=== PATIENT | female | born 1970 | race African-American/Black ===

== ENCOUNTER 2025-01-22 15:17 | Emergency (ER) | payer OTHER, SELFPAY ==
--- NOTE | ~2025-01-22 | CT_ITS ---
EXAMINATION: CT cervical spine wo con DATE: 01/22/2025 15:50 INDICATION: fall TECHNIQUE: Computed tomography (CT) of the cervical spine was performed without intravenous contrast. Automated exposure control and iterative reconstruction technique were employed. The dose-length pro duct was 148.51 mGy-cm. COMPARISON: None. FINDINGS: Motion artifact in the upper cervical spine. Vertebral Body Alignment: Intact. Cervical straightening which can occur with positioning or muscle s pasm. Craniocervical and atlantoaxial alignment: No significant degenerative change. Alignment intact. Osseous structures/fracture: No evidence of a lytic or blastic process in the visualized spine. No e vidence of acute fracture. Cervical soft tissues: The paraspinal soft tissues planes are maintained. Prominence of the preverteb ral soft tissues, largely comprised by prominent bilateral internal jugular veins and carotid arterie s Mild apical septal thickening. Moderate left pleural fluid collection. Degenerative changes: Degenerative changes, without severe neural foraminal or central canal narrowin g. IMPRESSION: Mild motion artifact. X-ray, no acute fracture or traumatic malalignment in the cervical spine. Mild interstitial edema. Moderate left pleural effusion. Reviewed, dictated and finalized at location K.
--- NOTE | ~2025-01-22 | XR_ITS ---
EXAM: XR pelvis 1-2V DATE: 01/22/2025 16:05 HISTORY: FALL . COMPARISON: None available. FINDINGS: Normal mineralization. No fracture or dislocation. Lumbar degenerative disc disease. Pelvi c phleboliths. Calcification over the left greater trochanter, likely calcific tendinitis. Mild scatt ered pelvic enthesopathy. Mild degenerative changes in the hips. IMPRESSION: No acute osseous finding in the pelvis. Reviewed, dictated and finalized at location K.
--- NOTE | ~2025-01-22 | CT_ITS ---
EXAMINATION: CT brain wo con DATE: 01/22/2025 15:50 INDICATION: fall . TECHNIQUE: Computed tomography (CT) of the head was performed without intravenous contrast. The mA wa s adjusted according to patient size. Iterative reconstruction technique was employed. The dose-lengt h product was 605.33 mGy-cm. COMPARISON: None. FINDINGS: No acute intracranial hemorrhage or extra-axial fluid collection. No hydrocephalus, mass, or herniation. No acute ischemic infarct. Unremarkable dural venous sinus attenuation. No acute osseous abnormality. Bilateral maxillary mucosal thickening, the remaining aerated spaces are clear. Left basal ganglia calcification. Mild atrophy and chronic white matter change. Atherosclerotic intra cranial calcification. Bilateral lens replacements. IMPRESSION: No acute intracranial process. Reviewed, dictated and finalized at location K.
[2025-01-22 15:15] VITALS: BP 160/139; PULSE 117; RESP 20; TEMP 36.8; O2SAT 98
--- NOTE | 2025-01-22 15:29 | ED.FALL ---
HPI - Fall General Chief Complaint: Fall Stated Complaint: FALL Source: EMS Mode of arrival: EMS Limitations: clinical condition History of Present Illness HPI Narrative: 54 YEARS OLD FEMALE CAME FROM SENIOR [facility]IVING BY AMBULANCE AFTER A FALL PATIENT WAS WALKING TO THE RESTROOM, SLIPPED AND FELL PATIENT HIT HER HEAD ON THE FLOOR, HISTORY OF FREQUENT FALLS, PATIENT DENIES ANY PAIN, PATIENT IS AWAKE, ALERT ORIENTED TO HER NAME AND AGE ONLY AND SITUATION Review of Systems Review of Systems: All systems reviewed & are unremarkable except as noted in HPI and below Exam Narrative: GENERAL APPEARANCE: WELL-DEVELOPED, WELL-NOURISHED SKIN: NORMAL COLOR HEAD: NORMOCEPHALIC, NONTRAUMATIC LEFT OCCIPITAL HEMATOMA EYES: CLEAR CONJUNCTIVA ENT: OROPHARYNX NORMAL, EARS NORMAL, NOSE NORMAL NECK: C-COLLAR ON CHEST AND RESPIRATORY: AIRWAY PATENT, NO RESPIRATORY DISTRESS, NO ACCESSORY MUSCLE USE HEART: REGULAR RATE/RHYTHM ABDOMEN: SOFT, NONTENDER, NO ORGANOMEGALY, QUIET BOWEL SOUNDS VASCULAR: NORMAL PERIPHERAL PULSES, NORMAL CAPILLARY REFILL. 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, NO GROSS MOTOR DEFICIT Course Vital Signs Vital signs: Vital Signs Temperature 36.8 C 01/22/25 15:15 Pulse Rate 117 H 01/22/25 15:15 Respiratory Rate 20 01/22/25 15:15 Blood Pressure 160/139 H 01/22/25 15:15 Pulse Oximetry 98 01/22/25 15:15 Oxygen Delivery Room Air 01/22/25 15:15 Temperature 36.8 C 01/22/25 15:15 Pulse Rate 112 H 01/22/25 16:20 Respiratory Rate 15 01/22/25 16:20 Blood Pressure 171/109 H 01/22/25 16:20 Pulse Oximetry 99 01/22/25 16:20 Oxygen Delivery Room Air 01/22/25 15:15 MDM - Fall MDM Narrative Medical decision making narrative: PATIENT CAME AFTER GROUND LEVEL FALL VITAL SIGNS SHOWING BLOOD PRESSURE 160/139, HEART RATE 117 OTHERWISE WITHIN NORMAL LIMIT PHYSICAL EXAMINATION SHOWING A PATIENT WITH A C-COLLAR ON, LEFT OCCIPITAL HEMATOMA, SLIGHT LIMITED RANGE OF MOTION OF THE HIPS. WORKUP INCLUDES CT HEAD AND CT CERVICAL SPINE WITHOUT CONTRAST SHOWED NO SIGNIFICANT ABNORMALITIES X-RAY OF THE PELVIS SHOWED NO ACUTE OSSEOUS ABNORMALITY DIAGNOSIS FALL, CONTUSIONS DISCHARGE BACK TO SENIOR LIVING THE PT WAS DISCHARGED TO HOME.THE PT,S CONDITION UPON DISCHARGE WAS FAIR,EDUCATION WAS PROVIDED TO THE PT IN REFERENCE TO THE FINAL IMPRESSION,DISCHARGE STUDY RESULTS,TREATMENT,PROGNOSIS AND NEED FOR FOLLOW UP . Differential Diagnosis Differential diagnosis: Likely other (INTRACRANIAL HEMORRHAGE, NECK FRACTURE, PELVIC FRACTURE) Imaging Data Radiologist's impression: Impressions Head CT 01/22/25 15:53 IMPRESSION: No acute intracranial process. Cervical Spine CT 01/22/25 16:28 IMPRESSION: Mild motion artifact. X-ray, no acute fracture or traumatic malalignment in the cervical spine. Mild interstitial edema. Moderate left pleural effusion. Critical Care Time Critical Care Time Critical Care Time: No Discharge Plan Discharge Clinical Impression: Fall, Contusion Patient Disposition: NH [facility]sp/Asst Living Condition: Stable Instructions: Fall Prevention for Older Adults (ED), Contusion in Adults (ED) Additional Instructions: RETURN IF SYMPTOMS ARE WORSENING , CALL YOUR FAMILY PHYSICIAN FOR APPOINTMENT, TAKE TYLENOL NEEDED FOR ACHES AND PAIN, CONTINUE HOME MEDICATIONS. Patient Language: Kazakh
--- OUTSIDE RECORDS SUMMARY | 2025-01-22 16:18 | XMS_ITS | Continuity of Care Document ---
Author Organization [facility] Address [address] [place] [address] Phone Care Team Providers Care Energy Analyst Name Role Phone Unavailable Unavailable Unavailable Allergies, Adverse Reactions, Alerts Substance Reaction Status Criticality CIPROFLOXACIN BETAINE Active No Inf ormation METHYLCELLULOSE Active No Informati on Medications Medication Instructions Dosage Effective Dates (start - stop) Status Comments Tylenol-Codeine #3 take 1 tablet by ora l route every 4 - 6 hours as needed for pain - Active Prilosec 20 mg Cap PRILOSEC [address]<><> 1 TAB by mouth (PO) every day.<><><>DISPENSE: 30 day supply.<>REFILLS: 4<>Provider: CHRISTIE STEPHENSON MD<> SIGNATURE ON FILE <><> PLEASE HOLD FOR PATIENT PICK-UP <><>Hea - Active Norvasc 5 mg Tab NORVASC 5 MG TABLET< ><> 1 TAB by mouth (PO) every day.<><> For high blood pressure<><><>DISPENSE: 30 day supply.<>REFILLS: 4<>Provider: CHRISTIE STEPHENSON MD<> SIGNATURE ON FILE <><> PLEASE HOLD FOR PATIENT PI - Active Procedures Procedure Date Limit oral eval problem focused 011 Periapical first film Extraction erupted tooth or exposed root OFFICE/OUTPATIENT VISIT, EST OFFICE CONSULT, 15 MIN, 3 KE Y COMPS: PROB FOCUS HX; PROB FOCUS EXAM; [facility] BLOOD COUNT; COMPLETE (CBC), AUTOMATED D IFF COLLECTION OF VENOUS BLOOD BY VENIPUNCTU RE COMPRE METAB PANEL DRUG SCREEN, QUALITATE/MULTI URNLS DIP STICK/TABLET RGNT AUTO W/O BERNADINE URINALYSIS; MICROSCOPIC ONLY ANTIBODY; HELICOBACTER PYLORI 8 OFFICE/OUTPATIENT VISIT, EST OFFICE CONSULT, 15 MIN, 3 KE Y COMPS: PROB FOCUS HX; PROB FOCUS EXAM; [facility] OFFICE/OUTPATIENT VISIT, EST OFFICE CONSULT, 15 MIN, 3 KE Y COMPS: PROB FOCUS HX; PROB FOCUS EXAM; [facility] OFFICE CONSULT, 15 MIN, 3 KE Y COMPS: PROB FOCUS HX; PROB FOCUS EXAM; [facility] N.GONORRHOEAE, DNA, AMP PROB IAAD EIA HEP B SURF AG SYPHILIS TEST; QUALITATIVE (EG, VDRL, RP R, ART) BLOOD COUNT; HEMOGLOBIN (HGB) 7 THYROID STIMULATING HORMONE (TSH) ANTIBODY; HIV-1 AND HIV-2, SINGLE ASSAY CALCIFEDIOL (25-OH VITAMIN D-3) 007 COLLECTION OF VENOUS BLOOD BY VENIPUNCTU RE 1ST COMPRE PREV MED E/M NEW PT 18-39 Aug CYTP C/V AUTO THIN LYR PREPJ SCR SYS PHY S HEPATITIS C ANTIBODY; CHYLMD TRACH, DNA, AMP PROBE OFFICE/OUTPATIENT VISIT, EST OFFICE CONSULT, 15 MIN, 3 KE Y COMPS: PROB FOCUS HX; PROB FOCUS EXAM; [facility] OFFICE CONSULT, 15 MIN, 3 KE Y COMPS: PROB FOCUS HX; PROB FOCUS EXAM; [facility] OFFICE CONSULT, 15 MIN, 3 KE Y COMPS: PROB FOCUS HX; PROB FOCUS EXAM; [facility] OFFICE CONSULT, 15 MIN, 3 KE Y COMPS: PROB FOCUS HX; PROB FOCUS EXAM; [facility] OFFICE/OUTPATIENT VISIT, EST OFFICE CONSULT, 15 MIN, 3 KE Y COMPS: PROB FOCUS HX; PROB FOCUS EXAM; [facility] OFFICE CONSULT, 15 MIN, 3 KE Y COMPS: PROB FOCUS HX; PROB FOCUS EXAM; [facility] OFFICE CONSULT, 15 MIN, 3 KE Y COMPS: PROB FOCUS HX; PROB FOCUS EXAM; [facility] OFFICE/OUTPATIENT VISIT, EST OFFICE CONSULT, 15 MIN, 3 KE Y COMPS: PROB FOCUS HX; PROB FOCUS EXAM; [facility] OFFICE CONSULT, 15 MIN, 3 KE Y COMPS: PROB FOCUS HX; PROB FOCUS EXAM; [facility] COMPRE METAB PANEL LIPID PANEL OFFICE OUTPT EST 25 MIN GLUCOSE BLOOD TEST OFFICE CONSULT, 15 MIN, 3 KE Y COMPS: PROB FOCUS HX; PROB FOCUS EXAM; [facility] OFFICE CONSULT, 15 MIN, 3 KE Y COMPS: PROB FOCUS HX; PROB FOCUS EXAM; [facility] OFFICE CONSULT, 15 MIN, 3 KE Y COMPS: PROB FOCUS HX; PROB FOCUS EXAM; [facility] OFFICE CONSULT, 15 MIN, 3 KE Y COMPS: PROB FOCUS HX; PROB FOCUS EXAM; [facility] OFFICE CONSULT, 15 MIN, 3 KE Y COMPS: PROB FOCUS HX; PROB FOCUS EXAM; [facility] OFFICE CONSULT, 15 MIN, 3 KE Y COMPS: PROB FOCUS HX; PROB FOCUS EXAM; [facility] Periapical first film Extraction erupted tooth or exposed root Limit oral eval problem focused 007 OFFICE CONSULT, 15 MIN, 3 KE Y COMPS: PROB FOCUS HX; PROB FOCUS EXAM; [facility] OFFICE CONSULT, 15 MIN, 3 KE Y COMPS: PROB FOCUS HX; PROB FOCUS EXAM; [facility] OFFICE OUTPT NEW 30 MIN OFFICE CONSULT, 15 MIN, 3 KE Y COMPS: PROB FOCUS HX; PROB FOCUS EXAM; [facility] Advance Directives Directive Yes / No Effective Date File Name No Information Encounters Encounter Description Practice Location Reason(s) For Visit Diagnoses Date Provider Providers Copied on Encounter [facility], [address], [place], [place], [id number] , [place] tel: [phone] [facility] No Information 4 No Information [facility], [address], [place], [place], [address] , [place] tel: [phone] [facility] No Information 1 No Information OFFICE/OUTPA TIENT VISIT, EST [facility], [address], [place], [place], [address] , [place] tel: [phone] [facility] ESOPHAGEAL REFLUXEPISODIC MOOD DISORD NOSHYPERTENSION NOSCOCAINE ABUSE-IN REMISS 8 No Information OFFICE CONSULT, 15 MIN, 3 TURNER COMPS: PROB FOCUS HX; PROB FOCUS EXAM; [facility], [address], [place], [place], [address] , [place] tel: [phone] [facility] COUNSELING NOS 3 8 No Information OFFICE/OUTPA TIENT VISIT, EST [facility], [address], [place], [place], [address] , [place] tel: [phone] [facility] EPISODIC MOOD DISORD NOSCOCAINE ABUSE-UNSPECESOPHA GEAL REFLUXABDMNAL PAIN GENERALIZED 0- 8 No Information OFFICE CONSULT, 15 MIN, 3 TURNER COMPS: PROB FOCUS HX; PROB FOCUS EXAM; [facility], [address], [place], [place], [address] , [place] tel: [phone] [facility] COUNSELING NOS 4200 8 No Information OFFICE/OUTPA TIENT VISIT, EST [facility], [address], [place], [place], [address] , [place] tel: [phone] [facility] PRSNL HST PEPTIC ULCR DSEPISODIC MOOD DISORD NOSHYPERTENSION NOS 0-200 8 No Information OFFICE CONSULT, 15 MIN, 3 TURNER COMPS: PROB FOCUS HX; PROB FOCUS EXAM; [facility], [address], [place], [place], [address] , [place] tel: [phone] [facility] COUNSELING NOS 5 8 No Information OFFICE CONSULT, 15 MIN, 3 TURNER COMPS: PROB FOCUS HX; PROB FOCUS EXAM; [facility], [address], [place], [place], [address] , [place] tel: [phone] [facility] COUNSELING NOS 0 8 No Information 1ST COMPRE PREV MED E/M NEW PT 18-39 [facility], [address], [place], [place], [address] , [place] tel: [phone] [facility] VAGINITIS 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 EXAMINATIONCOUGH 2 7 No Information OFFICE/OUTPA TIENT VISIT, EST [facility], [address], [place], [place], [address] , [place] tel: [phone] [facility] EPISODIC MOOD DISORD NOSTENSION HEADACHEHYPERTENSI ON NOSJOINT PAIN-ANKLE Aug-0 5 7 No Information OFFICE CONSULT, 15 MIN, 3 TURNER COMPS: PROB FOCUS HX; PROB FOCUS EXAM; [facility], [address], [place], [place], [address] , [place] tel: [phone] [facility] COUNSELING NOS 0 200 7 No Information OFFICE CONSULT, 15 MIN, 3 TURNER COMPS: PROB FOCUS HX; PROB FOCUS EXAM; [facility], [address], [place], [place], [address] , [place] tel: [phone] [facility] COUNSELING NOS 7 No Information OFFICE CONSULT, 15 MIN, 3 TURNER COMPS: PROB FOCUS HX; PROB FOCUS EXAM; [facility], [address], [place], [place], [address] , [place] tel: [phone] [facility] COUNSELING NOS 1-200 7 No Information OFFICE CONSULT, 15 MIN, 3 TURNER COMPS: PROB FOCUS HX; PROB FOCUS EXAM; [facility], [address], [place], [place], [address] , [place] tel: [phone] [facility] COUNSELING NOS 8200 7 No Information OFFICE/OUTPA TIENT VISIT, EST [facility], [address], [place], [place], [address] , [place] tel: [phone] [facility] HYPERTENSION NOSDEPR PSYCHOS-PART REMISSESOPHAGEAL REFLUX 8200 7 No Information OFFICE CONSULT, 15 MIN, 3 TURNER COMPS: PROB FOCUS HX; PROB FOCUS EXAM; [facility], [address], [place], [place], [address] , [place] tel: [phone] [facility] COUNSELING NOS 7 No Information OFFICE CONSULT, 15 MIN, 3 TURNER COMPS: PROB FOCUS HX; PROB FOCUS EXAM; [facility], [address], [place], [place], [address] , [place] tel: [phone] [facility] COUNSELING NOS 7 No Information OFFICE CONSULT, 15 MIN, 3 TURNER COMPS: PROB FOCUS HX; PROB FOCUS EXAM; [facility], [address], [place], [place], [address] , [place] tel: [phone] [facility] COUNSELING NOS 7 No Information OFFICE/OUTPA TIENT VISIT, EST [facility], [address], [place], [place], [address] , [place] tel: [phone] [facility] HYPERTENSION NOSRECUR DEPR PSYC-PART REMESOPHAGEAL REFLUX 200 7 No Information OFFICE CONSULT, 15 MIN, 3 TURNER COMPS: PROB FOCUS HX; PROB FOCUS EXAM; [facility], [address], [place], [place], [address] , [place] tel: [phone] [facility] COUNSELING NOS 2200 7 No Information OFFICE CONSULT, 15 MIN, 3 TURNER COMPS: PROB FOCUS HX; PROB FOCUS EXAM; [facility], [address], [place], [place], [address] , [place] tel: [phone] [facility] COUNSELING NOS Mar-2 1-200 7 No Information OFFICE OUTPT EST 25 MIN [facility], [address], [place], [place], [address] , [place] tel: [phone] [facility] RECURR DEPR PSYCHOS-MILDHYPERT ENSION NOSESOPHAGEAL REFLUXSPASM OF MUSCLE Mar-2 0-200 7 No Information OFFICE CONSULT, 15 MIN, 3 TURNER COMPS: PROB FOCUS HX; PROB FOCUS EXAM; [facility], [address], [place], [place], [address] , [place] tel: [phone] [facility] COUNSELING NOS Mar-2 0-200 7 No Information OFFICE CONSULT, 15 MIN, 3 TURNER COMPS: PROB FOCUS HX; PROB FOCUS EXAM; [facility], [address], [place], [place], [address] , [place] tel: [phone] [facility] COUNSELING NOS Mar-2 0-200 7 No Information OFFICE CONSULT, 15 MIN, 3 TURNER COMPS: PROB FOCUS HX; PROB FOCUS EXAM; [facility], [address], [place], [place], [address] , [place] tel: [phone] [facility] COUNSELING NOS Mar-0 8-200 7 No Information OFFICE CONSULT, 15 MIN, 3 TURNER COMPS: PROB FOCUS HX; PROB FOCUS EXAM; [facility], [address], [place], [place], [address] , [place] tel: [phone] [facility] COUNSELING NOS Feb-2 7-200 7 No Information OFFICE CONSULT, 15 MIN, 3 TURNER COMPS: PROB FOCUS HX; PROB FOCUS EXAM; [facility], [address], [place], [place], [address] , [place] tel: [phone] [facility] COUNSELING NOS Feb-0 9-200 7 No Information OFFICE CONSULT, 15 MIN, 3 TURNER COMPS: PROB FOCUS HX; PROB FOCUS EXAM; [facility], [address], [place], [place], [address] , [place] tel: [phone] [facility] COUNSELING NOS 7 No Information [facility], [address], [place], [place], [address] , [place] tel: [phone] [facility] DENTAL EXAMINATION 7 No Information OFFICE CONSULT, 15 MIN, 3 TURNER COMPS: PROB FOCUS HX; PROB FOCUS EXAM; [facility], [address], [place], [place], [address] , [place] tel: [phone] [facility] COUNSELING NOS 7 No Information OFFICE CONSULT, 15 MIN, 3 TURNER COMPS: PROB FOCUS HX; PROB FOCUS EXAM; [facility], [address], [place], [place], [address] , [place] tel: [phone] [facility] COUNSELING NOS 6 No Information OFFICE OUTPT NEW 30 MIN [facility], [address], [place], [place], [address] , [place] tel: [phone] [facility] MYALGIA AND MYOSITIS NOSPEPTIC ULCER NOS 6 No Information OFFICE CONSULT, 15 MIN, 3 TURNER COMPS: PROB FOCUS HX; PROB FOCUS EXAM; [facility], [address], [place], [place], [address] , [place] tel: [phone] [facility] COUNSELING NOS 6 No Information Family History Family Member Type Diagnosis Age At Onset No Information Payers Payer name Insurance type Covered constitution party ID Authoriza tion(s) No Information Social History Type Description Quantity Date Captured Comments Sex Female Smoking Status No Information Chief Complaint And Reason For Visit No Information Reason For Referral Reason For Referral No Information History Of Present Illness Encounter Date Complaint History Of Prese nt Illness No Information Functional Status Date Functional Assessmen t No Information Instructions Date Instruction Additional Infor mation No Information Assessments Type Assessment Date No Information Patient Care Teams Name Effective Dates (start - stop) Status Members No Information
[2025-01-22 16:20] VITALS: BP 171/109; PULSE 112; RESP 15; O2SAT 99
== END 2025-01-22 17:32 ==
LOC: ANHED 16:15
PROVIDERS: Emergency Provider Emergency Medicine
DX: S00.03XA Contusion of scalp, initial encounter (principal); W01.0XXA Fall on same level from slipping, tripping and stumbling without subsequent striking against object, initial encounter
CPT/HCPCS: 70450; 72125; 72170; 99284

== ENCOUNTER 2025-02-14 12:51 | Inpatient (IN) | payer OTHER, SELFPAY ==
[2025-02-14] VITALS (8 sets, daily range): BP systolic 138–173; BP diastolic 81–112; PULSE 77–131; RESP 16–22; TEMP 36.3–37.1; O2SAT 93–100; BMI 26.9
--- NOTE | ~2025-02-14 | XR_ITS ---
XR chest 1V portable 02/14/2025 14:27 Indication: Edema. Procedure: AP portable chest Comparison: Comparison to multiple prior studies sequentially, with oldest reviewed study dated Findings: there is left basilar consolidation. Small left pleural effusion. Heart size normal. Shallo w inspiration with crowding of the pulmonary vessels. No edema or pneumothorax. No acute osseous abno rmality. Nonspecific bowel gas pattern visualized.. Impression: 1: Left basilar consolidation may represent atelectasis or pneumonia. 2: Small left pleural effusion. Reviewed, dictated and finalized at location A. Impression: 1: Left basilar consolidation may represent atelectasis or pneumonia. 2: Small left pleural effusion.
--- NOTE | ~2025-02-14 | US_ITS ---
EXAMINATION: US paracentesis abd w/image DATE: 02/14/2025 17:34 INDICATION: Ascites. TECHNIQUE: The procedure and its risks and benefits were discussed with the patient. Potential risks discussed included bleeding and infection. The skin was prepped and draped in sterile fashion. 1% lid ocaine was used for local anesthesia. Under ultrasound guidance, a 5 Fr catheter with trochar was adv anced into the ascites in the left lower quadrant. Fluid was aspirated into vacuum bottles. The jonah ter was removed, and a dressing was applied. There were no immediate complications. FINDINGS: Ultrasound images demonstrate ascites and the catheter within the fluid. IMPRESSION: 1. Successful ultrasound-guided paracentesis yielding 3700 mL of cloudy yellow fluid. Reviewed, dictated and finalized at location A.
--- NOTE | ~2025-02-14 | US_ITS ---
EXAMINATION:US venous doppler LE BI INDICATION:Lower extremity edema TECHNIQUE: Multiple grayscale, color flow and Doppler images of the right and left lower extremity de ep venous systems were obtained and reviewed. COMPARISON:No prior studies for comparison. FINDINGS: The common femoral, superficial femoral and popliteal veins demonstrate normal respiratory variation, augmentation and compressibility. Color flow is also seen within the posterior tibial, pe roneal, greater saphenous and profunda veins. IMPRESSION: 1: No lower extremity deep venous thrombosis. Reviewed, dictated and finalized at location A.
--- NOTE | ~2025-02-14 | CT_ITS ---
CT abdomen pelvis w con Ordering provider: Alf Smyth MD History: 54 years Female with . abdominal pain, distension . Comparison: None. Technique: CT abdomen and pelvis with IV and without oral contrast. Automated exposure control and it erative reconstruction technique were employed. The dose-length product was 1188.90 mGy-cm. 100 mL Om nipaque 350 was given IV. Findings: VISUALIZED LOWER CHEST: Left moderate pleural effusion with adjacent atelectasis versus pneumonia.. N odules are seen in the right lower lobe measuring 1.8 x 1.8 cm and 1.5 x [address] scanning and further evaluation advised. Minimal right pleural effusion is also noted. UPPER ABDOMINAL ORGANS: Liver: Minimal lobulation of the outline of the liver is seen which may indicate cirrhosis. Clinical correlation and follow-up advised. Gallbladder: Contracted with small gallstone. Spleen: Normal. Lucency seen is most likely a fissure. Stomach/duodenum: Normal. Pancreas: Atrophic. Adrenals: Normal. Kidneys: Normal. PELVIC ORGANS: The bladder shows thickened wall. Evaluation for cystitis advised. BOWEL AND MESENTERY: Colon: Thickened wall of the rectum is noted with hypodensity clinical evaluation is advised. Status post appendectomy. Small Bowel: Slightly thickened wall of the small bowel which may indicate enteritis.. No obstruction . Peritoneum/mesentery: No free air. Gross ascites is noted.. No mesenteric lymphadenopathy. RETROPERITONEUM: Mild atheromatous disease of the abdominal aorta. No retroperitoneal lymphadenopat hy. MUSCULOSKELETAL: Superficial soft tissues: Edema in the subcutaneous tissues is noted with fluid collection seen in th e subcutaneous tissues laterally and posteriorly. Edema also seen in the upper thigh bilaterally. Oth erwise, The superficial soft tissues are normal. Bones: Age appropriate degenerative changes of the spine. IMPRESSION: 1. Gross ascites. 2. Possible liver cirrhosis. Clinical evaluation and follow-up advised. 3. 2 nodules in the right lung base PET CT scan and further evaluation advised. 4. Left pleural effusion with adjacent atelectasis versus pneumonia. Minimal right pleural effusion. 5. Cholelithiasis. 6. Edema in the subcutaneous tissues with fluid collections. 7. Possible enteritis of the small bowel with thickening of the wall. 8. Soft tissue density in the rectum with thickened wall. Clinical evaluation advised. Reviewed, dictated and finalized at location A. IMPRESSION: 1. Gross ascites. 2. Possible liver cirrhosis. Clinical evaluation and follow-up advised. 3. 2 nodules in the right lung base PET CT scan and further evaluation advised . 4. Left pleural effusion with adjacent atelectasis versus pneumonia. Minimal r ight pleural effusion. 5. Cholelithiasis. 6. Edema in the subcutaneous tissues with fluid collections. 7. Possible enteritis of the small bowel with thickening of the wall. 8. Soft tissue density in the rectum with thickened wall. Clinical evaluation advised.
--- NOTE | ~2025-02-14 | CT_ITS ---
EXAMINATION: CTA chest PE protocol DATE: 02/17/2025 12:30 CDT INDICATION: Persistent tachycardia TECHNIQUE: Computed tomographic angiography (CTA) of the chest was performed with 100 mL Omnipaque-35 0 intravenous contrast. The dose-length product was 366.97 mGy-cm. Maximum intensity projection 3D-re constructions of the aorta and other arteries were constructed by the technologist on a separate work station. COMPARISON: None. FINDINGS/OBSERVATIONS: PULMONARY ARTERIES: No filling defect is identified within the main or proximal pulmonary artery. The main pulmonary artery is not enlarged. THORACIC AORTA: No aneurysmal dilatation or dissection is present. The great vessels are intact LUNGS: Bilateral pleural effusions, left greater than right, with adjacent compressive atelectasis on the right and adjacent compressive consolidation on the left. The remainder of the lungs are clear. MEDIASTINUM: No morphologically suspicious or pathologically enlarged lymph nodes are identified with in the mediastinum or bilateral axilla. BONES OF THE CHEST: No acute fracture. No significant degenerative disease. No lytic or blastic lesions. HEART: The heart is of normal size, without pericardial effusion. WITHIN THE UPPER ABDOMEN: Intra-abdominal ascites, consistent with patient's history. IMPRESSION: No pulmonary embolus. No thoracic aortic dissection. Bilateral pleural effusions, left greater than right. Adjacent compressive atelectasis on the right with adjacent compressive consolidation on the left. Reviewed, dictated and finalized at location A. IMPRESSION: No pulmonary embolus. No thoracic aortic dissection. Bilateral pleural effusions, left greater than right. Adjacent compressive atelectasis on the right with adjacent compressive consoli dation on the left.
[2025-02-14 13:42] LABS: BEDSIDEPREGUCG Negative (Negative)
[2025-02-14 13:46] LABS: Basophils Absolute Auto 0.1 K/mm3 (0.0-0.1); Basophils Percent Auto 0.4 % (0.2-1.2); Eosinophils Absolute Auto 0.6 K/mm3 (0-0.3); Eosinophils Percent Auto 2.5 % (0-4.4); Hematocrit 26.8 % (37.0-47.0); Immature Granulocyte Absolute 0.19 K/mm3 (0.00-0.031); Immature Granulocyte Percent A 0.9 % (0-0.5); Lymphocytes Absolute Auto 2.37 K/mm3 (0.9-3.2); Lymphocytes Percent Auto 10.6 % (18.3-44.2); Mean Corpuscular HGB Conc 29.9 g/dl (32-36); Mean Corpuscular Hemoglobin 27.3 pg (26-34); Mean Corpuscular Volume 91.5 fl (80-100); Monocytes Absolute Auto 1.7 K/mm3 (0.1-0.6); Monocytes Percent Auto 7.6 % (2.6-8.5); Neutrophils Absolute Auto 17.4 K/mm3 (1.3-6.7); Platelet Count Result 332 k/mm3 (150-375); Red Blood Count 2.93 M/mm3 (4.2-5.4); Red Cell Distribution Width 21.9 % (11.5-14.5); White Blood Count 22.3 K/mm3 (4.5-10.0)
--- NOTE | 2025-02-14 13:51 | ECG_ITS ---
Test Date: 2025-02-14 15:44:05 Measurements Intervals [place] Rate: 121 P: 24 PA: 112 QRS: -30 QRSD: 71 T: 27 QT: 325 QTc: 463 Interpretive Statements SINUS TACHYCARDIA WITH SHORT PA INTERVAL WITH OCCASIONAL ECTOPIC PREMATURE COMPLEXES LOW QRS VOLTAGE IN PRECORDIAL LEADS [QRS DEFLECTION < 1.0 mV IN CHEST LEADS] SEPTAL MYOCARDIAL INFARCTION , PROBABLY OLD [40+ ms Q WAVE IN V1/V2] No previous ECG available for comparison Electronically Signed On 02-15-2025 16:30:29 CDT by Oly Valle M.D.
[2025-02-14 13:56] LABS: Alanine Aminotransferase 24 U/L (6-35); Alkaline Phosphatase 236 U/L (38-126); Anion Gap 7 mmol/L (4-12); Aspartate Amino Transferase 65 U/L (14-36); Bilirubin,Total 1.2 mg/dL (0.2-1.3); Blood Urea Nitrogen 12 mg/dL (7-17); Calcium 6.7 mg/dL (8.4-10.2); Carbon Dioxide 19 mmol/L (22-30); Chloride 118 mmol/L (98-107); Estimated CRCL calculation 87 ml/min; Estimated Glomerular Filt Rate > 60; Glucose 144 mg/dL (65-110); Lipase 17 U/L (23-300); Potassium 3.3 mmol/L (3.4-5.0); Sodium 144 mmol/L (137-145)
[2025-02-14 13:57] LABS: Add Urine Microscopic? YES; Appearance Urine Clear (Clear); Bacteria Urine None Seen /hpf; Bilirubin Urine Negative (Negative); Blood Urine Negative (Negative); Color Urine Dark Yellow (Yellow); Glucose Urine UA Negative (Negative); Ketones Urine Negative (Negative); Leukocyte Esterase Ur Trace LEU/UL (Negative); Need Manual Microscopic Reviewed; Nitrate Urine Negative (Negative); Protein Urine Negative (Negative); RBC Urine 0-2 /hpf (0-2); Specific Grav Ur 1.016 (1.001-1.035); Squamous Epithelial Cell Urine Occasional /hpf (Few); WBC Urine 0-5 /hpf (0-3); pH Urine 5.5 (5.0-9.0)
[2025-02-14 14:11] LABS: Anisocytosis 1+; Hypochromasia 1+; Platelet Estimate Adequate (Adequate); Schistocytes None Seen; Target Cells 1+
--- NOTE | 2025-02-14 15:25 | ED.GENADULT ---
HPI - General Adult General Chief complaint: Abdominal Pain Stated complaint: ABD DISTENTION Time Seen by Provider: 02/14/25 13:42 History of Present Illness HPI narrative: Patient is a 54-year-old female who presents emergency department with chief complaint of abdominal distention and peripheral edema. Patient states for the last 10 days she has been having abdominal discomfort reports that her legs have been swelling the patient states that her abdomen is also distended Review of Systems Review of Systems: A 10 system review of systems was completed on the patient and is negative except for what is stated in the HPI. Nursing and ancillary documentation was reviewed. Exam Narrative: GENERAL: Well-appearing, well-nourished, and in no acute distress. HEAD: Normocephalic, atraumatic. EYES: PERRLA and EOMI. ENT: Nares clear, no rhinorrhea or epistaxis. Mucous membranes moist. NECK: Supple. CHEST: Clear to auscultation. No respiratory distress. HEART: Regular rate and rhythm. No murmur heard. Normal peripheral pulses. ABDOMEN: Soft, diffusely tender or distended, normal active bowel sounds. EXTREMITIES: Normal range of motion. 2+ edema. SKIN: Warm, dry, no rash. NEURO: No focal deficits. Alert and oriented x3. PSYCH: Normal mood and affect. Course Vital Signs Vital signs: Vital Signs Pulse Rate 80 02/14/25 12:55 Respiratory Rate 16 02/14/25 12:55 Blood Pressure 154/96 H 02/14/25 12:55 Pulse Oximetry 98 02/14/25 12:55 Oxygen Delivery Room Air 02/14/25 12:55 Temperature 36.3 C L 02/14/25 15:42 Pulse Rate 120 H 02/14/25 15:42 Respiratory Rate 18 02/14/25 15:42 Blood Pressure 154/96 H 02/14/25 12:55 Pulse Oximetry 98 02/14/25 15:42 Oxygen Delivery Room Air 02/14/25 12:[address] [facility] Narrative Medical decision making narrative: Differential diagnosis includes intra-abdominal infection, and has a history of ascites, cirrhosis, CHF, renal failure Laboratory studies were obtained on the patient which showed white count 22.3 electrolytes showed a potassium 3.3 normal renal function magnesium was 1.1 troponin was negative BNP was 4 6 4 albumin was 2.0 urinalysis showed no evidence UTI CT scan of the abdomen pelvis showed evidence of ascites Venous duplex showed no evidence of DVT The case was discussed with the hospitalist and the patient is also discussed with GI. The patient recovered from a pneumonia and also SBP. A diagnostic paracentesis was ordered Vital Signs Vital Signs: Vital Signs Pulse Rate 80 02/14/25 12:55 Respiratory Rate 16 02/14/25 12:55 Blood Pressure 154/96 H 02/14/25 12:55 Pulse Oximetry 98 02/14/25 12:55 Oxygen Delivery Room Air 02/14/25 12:55 Temperature 36.3 C L 02/14/25 15:42 Pulse Rate 120 H 02/14/25 15:42 Respiratory Rate 18 02/14/25 15:42 Blood Pressure 154/96 H 02/14/25 12:55 Pulse Oximetry 98 02/14/25 15:42 Oxygen Delivery Room Air 02/14/25 12:55 Lab Data 02/14/25 13:36 02/14/25 13:36 Labs: Lab Results 02/14/25 02/14/25 02/14/25 Range/Units 13:26 13:36 13:40 WBC 22.3 H (4.5-10.0) K/mm3 RBC 2.93 L (4.2-5.4) M/mm3 Hgb 8.0 L (12.0-15.0) g/dL Hct 26.8 L (37.0-47.0) % MCV 91.5 (80-100) fl MCH 27.3 (26-34) pg MCHC 29.9 L (32-36) g/dl RDW 21.9 H (11.5-14.5) % Plt Count 332 (150-375) k/mm3 MPV 11.0 H (7.4-10.4) fl Immature Gran % (Auto) 0.9 H (0-0.5) % Neut % (Auto) 78.0 H (45.5-73.1) % Lymph % (Auto) 10.6 L (18.3-44.2) % [place] % (Auto) 7.6 (2.6-8.5) % Eos % (Auto) 2.5 (0-4.4) % Baso % (Auto) 0.4 (0.2-1.2) % Lymph # (Auto) 2.37 (0.9-3.2) K/mm3 [place] # (Auto) 1.7 H (0.1-0.6) K/mm3 Eos # (Auto) 0.6 H (0-0.3) K/mm3 Baso # (Auto) 0.1 (0.0-0.1) K/mm3 Abs Immat Gran (auto) 0.19 H (0.00-0.031) K/mm3 Absolute Neuts (auto) 17.4 H (1.3-6.7) K/mm3 Absolute Nucleated RBC 0.000 (0.0-0.012) K/mm3 Band Neutrophils % Not Reportable Nucleated RBC % 0.0 (0.0-0.2) % Platelet Estimate Adequate (Adequate) Hypochromasia 1+ Anisocytosis 1+ Target Cells 1+ Schistocytes None seen Sodium 144 (137-145) mmol/L Potassium 3.3 L (3.4-5.0) mmol/L Chloride 118 H (98-107) mmol/L Carbon Dioxide 19 L (22-30) mmol/L Anion Gap 7 (4-12) mmol/L BUN 12 (7-17) mg/dL Creatinine 0.67 L (0.7-1.0) mg/dL Estim Creat Clear Calc 87 ml/min Estimated GFR > 60 (59 - ) Glucose 144 H (65-110) mg/dL Calcium 6.7 L (8.4-10.2) mg/dL Magnesium 1.1 L (1.6-2.3) mg/dL Total Bilirubin 1.2 (0.2-1.3) mg/dL AST 65 H (14-36) U/L ALT 24 (6-35) U/L Alkaline Phosphatase 236 H (38-126) U/L Troponin I < 0.012 (0.000-0.034) ng/mL NT-Pro-B Natriuret Pep 464 H (19.9-100) pg/mL Total Protein 6.0 L (6.3-8.2) g/dL Albumin 2.0 L (3.5-5.1) g/dL Lipase 17 L (23-300) U/L Urine Color Dark yellow (Yellow) Urine Appearance Clear (Clear) Urine pH 5.5 (5.0-9.0) Ur Specific [place] 1.016 (1.001-1.035) Urine Protein Negative (Negative) mg/dL Urine Glucose (UA) Negative (Negative) mg/dL Urine Ketones Negative (Negative) mg/dL Ur Blood (Man) Negative (Negative) Urine Nitrate Negative (Negative) Urine Bilirubin Negative (Negative) Urine Urobilinogen 1.0 (<2.0) mg/dL Add Ur Microanalysis Reviewed Leukocyte Esterase Rfl Trace H (Negative) MARINE/UL Urine RBC 0-2 (0-2) /hpf Urine WBC 0-5 (0-3) /hpf Ur Squamous Epith Cells Occasional (Few) /hpf Urine Bacteria None seen /hpf Urine Casts 3-5 POC Urine HCG, Qual Negative (Negative) Discharge Plan Discharge Clinical Impression: Pneumonia, Leukocytosis, Ascites, Edema, peripheral Patient Disposition: Still a Patient Condition: Stable Instructions: Antibiotic Form Patient Language: Citizen Of [place] Follow-up/Referrals: PHYSICIAN,HASHER OPERATOR [Primary Care Provider] - Time of Disposition: 16:24
[2025-02-14 15:54] LABS: Magnesium 1.1 mg/dL (1.6-2.3)
[2025-02-14 16:06] LABS: NT Pro B Type Natriuretic Pept 464 pg/mL (19.9-100); Troponin I < 0.012 ng/mL (0.000-0.034)
[2025-02-14] MEDS: MAGNESIUM SULF 2 GM/WATER 50ML 2 GM/50 ML BAG IVPB (16:08)
[2025-02-14] MEDS: MORPHINE SULFATE (*CRX) 4 MG/ML INJ 2 MG IV PUSH (18:24)
[2025-02-14] MEDS: cefTRIAXone 2 GM/NS 100 ML 2 GM/100 ML BAG IVPB (18:36)
--- NOTE | 2025-02-14 18:40 | PC.NURSE ---
blood cultures obtained by phlebotomy d/t pt being hard stick. This RN started IV abx
--- NOTE | 2025-02-14 18:50 | ADMGEN ---
This patient, Hattie Peralta, was admitted to 2 Medical Room 259-01. Patient/family oriented to hospital policies and general routines including ID bracelet, bed and alarms, visiting hours, pain management, procedures, bathroom and other care routines, personal items, smoking policy, room service/diet, and visiting hours. Information on how to activate the Rapid Response Team has been discussed. Patient/Family are encouraged to report perceived risks to care and to ask questions if they do not understand what they are told or what they should do.
[2025-02-14 18:58] LABS: Appearance Peritoneal Fluid Cloudy (Clear); Color Peritoneal Fluid Yellow (Colorless); Lymphocytes Peritoneal Fluid 30 %; Neutrophils Peritoneal Fluid 11 % (0-25); Nucleated Cells Peritoneal Flu 87 /uL (0-500); RBC Peritoneal Fluid < 2000 /uL (0-10000); Source Peritoneal Fluid Peritoneal Fluid
[2025-02-14 18:59] LABS: Macrophages Peritoneal Fluid 59 %
--- NOTE | 2025-02-14 19:57 | ADMGEN ---
This patient, Hattie Peralta, was admitted to 2 Medical Room 259-01 @1850. Patient/family oriented to hospital policies and general routines including ID bracelet, bed and alarms, visiting hours, pain management, procedures, bathroom and other care routines, personal items, smoking policy, room service/diet, and visiting hours. Information on how to activate the Rapid Response Team has been discussed. Patient/Family are encouraged to report perceived risks to care and to ask questions if they do not understand what they are told or what they should do.
[2025-02-14] MEDS: AZITHROMYCIN 500 MG/NS 250 ML 500 MG/250 ML BAG 250 MG IVPB (20:50)
[2025-02-14 21:33] LABS: Glucose Point of Care 129 mg/dl (65-105)
[2025-02-14 21:36] LABS: INR 1.4; Prothrombin Time 17.1 Seconds (11.1-14.7)
[2025-02-14 21:37] LABS: Partial Thromboplastin Time 43.6 Seconds (22.3-36.8)
[2025-02-14 21:41] LABS: Iron 51 ug/dL (37-170)
[2025-02-14 21:44] LABS: CRP 4.4 mg/dL (<1.0)
[2025-02-14 21:50] LABS: Percent Iron Saturation 33 % (20-50)
[2025-02-14 22:01] LABS: Procalcitonin 0.7 ng/mL
[2025-02-14] MEDS: ALBUMIN HUMAN 25% 25 GM/100 ML 100 ML IVPB (22:11)
[2025-02-14] MEDS: GABAPENTIN 300 MG CAPSULE PO (22:17)
[2025-02-14] MEDS: POTASSIUM CHLORIDE 20 MEQ ER TABLET 40 MEQ PO (22:17)
[2025-02-14 22:47] LABS: Folic Acid 8.4 ng/mL (2.76->20)
--- NOTE | 2025-02-14 23:17 | ECG_ITS ---
Test Date: 2025-02-14 23:35:18 Measurements Intervals [place] Rate: 119 P: 0 IL: 0 QRS: -22 QRSD: 75 T: -18 QT: 308 QTc: 434 Interpretive Statements SINUS TACHYCARDIA BORDERLINE LEFT AXIS DEVIATION [QRS AXIS < -20] LOW QRS VOLTAGE IN EXTREMITY LEADS [QRS DEFLECTION < 0.5 mV IN LIMB LEADS] BASELINE ARTIFACT PRESENT IN MULTIPLE LEADS POSSIBLE OLD SEPTAL INFARCT Compared to ECG 02/14/2025 15:44:05 NO SIGNIFICANT CHANGES Electronically Signed On 02-15-2025 16:38:35 CDT by Oly Valle M.D.
--- NOTE | 2025-02-14 23:20 | P.HP_ITS ---
H&P: HPI History of Present Illness Date/Time: 02/14/25 23:20 Chief Complaint: Abdominal pain Narrative: 54-year-old female with a past medical history of alcoholic cirrhosis, polysubstance use in remission, dementia associated with alcoholism, diabetes mellitus, GERD and peripheral neuropathy among other comorbidities who presented to the ER via EMS from [facility] due to abdominal pain. correction staff reported that the patient had been having pain for 10 days. Also patient had been having lower extremity edema. On arrival to the ER patient was noted to have a markedly distended abdomen. Patient was evidently reporting pain for 10 days as well but at the time my evaluation the patient was only oriented to person and was not talking to me. She had only spoke 1 full sentence to the nurses. She was somnolent did not provide any history. CT of the abdomen pelvis with contrast was performed in the ER and demonstrated gross ascites with cirrhosis, left pleural effusion with associated atelectasis versus pneumonia and minimal right pleural effusion with marked subcutaneous edema. Bowel demonstrate enteritis versus edema and soft tissue density in the rectum with thickened wall. The patient is afebrile. Higher was consulted the patient underwent paracentesis with removal of 3.7 L of peritoneal fluid that was cloudy. Blood cultures were obtained and pending. [place] count was [address] and hemoglobin was 8 INR was 1.5. Patient was given empiric antibiotic therapy for possible pneumonia and SBP. Review of Systems 2 Review of Systems: ROS unobtainable: Yes unobtainable due to mental status PMFSH Past Medical History Medical History (Updated 02/15/25 @ 10:17 by Domenica Arnold DO) Polysubstance abuse Anxiety and depression Diabetes mellitus GERD (gastroesophageal reflux disease) Emphysema lung Peripheral neuropathy 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 Anemia of chronic disease Surgical History Surgical History (Updated 02/14/25 @ 23:34 by Domenica Arnold DO) Status post cataract extraction of both eyes with insertion of intraocular lens (09/2024) Family History Family History Other Unknown family medical history Social History Social History (Updated 02/15/25 @ 10:08 by Domenica Arnold DO) Smoking status: Former smoker Alcohol intake: former Substance use: former Substance use type: crack/cocaine and prescription drug Living arrangements: care home Additional living arrangements comments: [facility] Spiritual care concerns: No Meds Home Medications and Allergies Home Medications ?Medication ?Instructions ?Recorded ?Confirmed ?Type bisacodyl 5 mg tablet,delayed 5 mg PO DAILY PRN constipation 02/14/25 02/14/25 History release (Alophen (bisacodyl)) furosemide 20 mg tablet 20 mg PO DAILY 02/14/25 02/14/25 History gabapentin 300 mg capsule 300 mg PO TID 02/14/25 02/14/25 History lactulose 10 gram/15 mL oral 10 g PO BID 02/14/25 02/14/25 History solution (Constulose) lidocaine 5 % topical patch 2 patch topical DAILY 02/14/25 02/14/25 History mesalamine 500 mg capsule,extended 1,200 mg PO DAILY 02/14/25 02/14/25 History release (Pentasa) multivitamin-iron 9 mg-folic acid 1 tablet PO DAILY 02/14/25 02/14/25 History 400 mcg-calcium and minerals tablet (Thera-M) pantoprazole 40 mg granules 40 mg PO DAILY 02/14/25 02/14/25 History delayed-release for susp in packet (Protonix) rifaximin 550 mg tablet (Xifaxan) 550 mg PO BID 02/14/25 02/14/25 History thiamine mononitrate (vit B1) 100 100 mg PO DAILY 02/14/25 02/14/25 History mg tablet (Vitamin B-1 (mononitrate)) tramadol 50 mg tablet 50 mg PO Q6H PRN pain 02/14/25 02/14/25 History Allergies Allergy/AdvReac Type Severity Reaction Status Date / Time ciprofloxacin Allergy Unknown Verified 02/14/25 19:54 metronidazole (From Flagyl) Allergy Unknown Verified 02/14/25 19:54 Vital Signs Vital Signs - 24 hr 02/14/25 12:55 02/14/25 15:42 02/14/25 16:15 Temperature 97.4 F L Pulse Rate 80 120 H 120 H Respiratory Rate 16 18 16 Blood Pressure 154/96 H 172/112 H Pulse Oximetry 98 98 100 Oxygen Delivery Room Air 02/14/25 17:00 02/14/25 17:45 02/14/25 19:15 Temperature 98.8 F Pulse Rate 110 H 120 H 129 H Respiratory Rate 16 16 22 H Blood Pressure 171/106 H 167/104 H 173/107 H Pulse Oximetry 100 100 98 Oxygen Delivery 02/14/25 22:00 Temperature 98.4 F Pulse Rate 77 Respiratory Rate 18 Blood Pressure 138/81 Pulse Oximetry 93 Oxygen Delivery Exam 2 Narrative: Weight 75.5 kg BMI 26.6 Const: Other: Chronically ill-appearing, appears much older than stated age, no acute distress HENMT: Other: Mucous membranes are tacky, dentures in place with significant plaquing to the dentures Eyes: Other: Marked conjunctival pallor, no scleral icterus, pupils are equal and reactive Neck: Other: No JVD, no lymphadenopathy Resp: Other: Clear to auscultation bilaterally, no increased work of breathing Cardio: Other: Sinus tachycardia, 2+ bilateral radial pedal pulses, no JVD no murmur GI: Other: Distended, soft, nontender, normoactive bowel sounds : Other: Pure wick catheter in place incontinent of urine, urine in suction canister is dark yellow and turbid Skin: Other: Normal temperature to touch, non jaundice, 3-4 second cap refill, chronic venous stasis changes to bilateral lower extremities left greater than right tattoo noted circling the left ankle, skin legs warm to touch bilaterally, the patient has maceration of skin to the buttocks Neuro: Other: The patient opens her eyes and looks at staff when her name is called, she does not verbalize her name and further orientation questions are not able to be performed, the patient will squeeze examiner's hands with prompting, she will stick her tongue out, she is only intermittently following commands her area responses are delayed and slowed, sensation seem to be intact is the patient does withdrawal from painful stimuli Extrem: Other: Bilateral lower extremity edema left may be slightly worse than right 1 to 2+ in nature extending up the calves into the thighs, abdomen also has some edema consistent with anasarca Psych: Other: Encephalopathic, calm H&P: Results Labs Labs: Laboratory Tests 02/14/25 13:36 02/14/25 13:36 02/14/25 02/14/25 02/14/25 13:26 13:36 13:40 WBC 22.3 H RBC 2.93 L Hgb 8.0 L Hct 26.8 L MCV 91.5 MCH 27.3 MCHC 29.9 L RDW 21.9 H Plt Count 332 MPV 11.0 H Immature Gran % (Auto) 0.9 H Neut % (Auto) 78.0 H Lymph % (Auto) 10.6 L [place] % (Auto) 7.6 Eos % (Auto) 2.5 Baso % (Auto) 0.4 Lymph # (Auto) 2.37 [place] # (Auto) 1.7 H Eos # (Auto) 0.6 H Baso # (Auto) 0.1 Abs Immat Gran (auto) 0.19 H Absolute Neuts (auto) 17.4 H Absolute Nucleated RBC 0.000 Band Neutrophils % Not Reportable Nucleated RBC % 0.0 Platelet Estimate Adequate Hypochromasia 1+ Anisocytosis 1+ Target Cells 1+ Schistocytes None seen PT INR APTT Sodium 144 Potassium 3.3 L Chloride 118 H Carbon Dioxide 19 L Anion Gap 7 BUN 12 Creatinine 0.67 L Estim Creat Clear Calc 87 Estimated GFR > 60 Glucose 144 H POC Capillary Glucose Lactic Acid Calcium 6.7 L Magnesium 1.1 L Iron TIBC % Saturation Ferritin Total Bilirubin 1.2 AST 65 H ALT 24 Alkaline Phosphatase 236 H Ammonia Troponin I < 0.012 C-Reactive Protein NT-Pro-B Natriuret Pep 464 H Total Protein 6.0 L Albumin 2.0 L Lipase 17 L Vitamin B12 Folate Procalcitonin Urine Color Dark yellow Urine Appearance Clear Urine pH 5.5 Ur Specific [place] 1.016 Urine Protein Negative Urine Glucose (UA) Negative Urine Ketones Negative Ur Blood (Man) Negative Urine Nitrate Negative Urine Bilirubin Negative Urine Urobilinogen 1.0 Add Ur Microanalysis Reviewed Leukocyte Esterase Rfl Trace H Urine RBC 0-2 Urine WBC 0-5 Ur Squamous Epith Cells Occasional Urine Bacteria None seen Urine Casts 3-5 POC Urine HCG, Qual Negative Peritoneal Source Peritoneal Color Peritoneal Appearance Peritoneal RBC Periton Nuc Cells Periton Neutrophils Periton Lymphocytes Periton Macrophages Peritoneal Tot Protein Peritoneal Glucose 02/14/25 02/14/25 02/14/25 17:20 21:15 21:31 WBC RBC Hgb Hct MCV MCH MCHC RDW Plt Count MPV Immature Gran % (Auto) Neut % (Auto) Lymph % (Auto) [place] % (Auto) Eos % (Auto) Baso % (Auto) Lymph # (Auto) [place] # (Auto) Eos # (Auto) Baso # (Auto) Abs Immat Gran (auto) Absolute Neuts (auto) Absolute Nucleated RBC Band Neutrophils % Nucleated RBC % Platelet Estimate Hypochromasia Anisocytosis Target Cells Schistocytes PT 17.1 H INR 1.4 APTT 43.6 H Sodium Potassium Chloride Carbon Dioxide Anion Gap BUN Creatinine Estim Creat Clear Calc Estimated GFR Glucose POC Capillary Glucose 129 H Lactic Acid Calcium Magnesium Iron 51 TIBC 154 L % Saturation 33 Ferritin 392.00 H Total Bilirubin AST ALT Alkaline Phosphatase Ammonia Troponin I C-Reactive Protein 4.4 H NT-Pro-B Natriuret Pep Total Protein Albumin Lipase Vitamin B12 840.0 Folate 8.4 Procalcitonin 0.7 Urine Color Urine Appearance Urine pH Ur Specific [place] Urine Protein Urine Glucose (UA) Urine Ketones Ur Blood (Man) Urine Nitrate Urine Bilirubin Urine Urobilinogen Add Ur Microanalysis Leukocyte Esterase Rfl Urine RBC Urine WBC Ur Squamous Epith Cells Urine Bacteria Urine Casts POC Urine HCG, Qual Peritoneal Source Peritoneal fluid Peritoneal Color Yellow Peritoneal Appearance Cloudy A Peritoneal RBC < 2000 [place] Nuc Cells 87 [place] Neutrophils 11 [place] Lymphocytes 30 [place] Macrophages 59 Peritoneal Tot Protein Pending Peritoneal Glucose Pending 02/14/25 22:03 WBC RBC Hgb Hct MCV MCH MCHC RDW Plt Count MPV Immature Gran % (Auto) Neut % (Auto) Lymph % (Auto) [place] % (Auto) Eos % (Auto) Baso % (Auto) Lymph # (Auto) [place] # (Auto) Eos # (Auto) Baso # (Auto) Abs Immat Gran (auto) Absolute Neuts (auto) Absolute Nucleated RBC Band Neutrophils % Nucleated RBC % Platelet Estimate Hypochromasia Anisocytosis Target Cells Schistocytes PT INR APTT Sodium Potassium Chloride Carbon Dioxide Anion Gap BUN Creatinine Estim Creat Clear Calc Estimated GFR Glucose POC Capillary Glucose Lactic Acid 2.0 Calcium Magnesium Iron TIBC % Saturation Ferritin Total Bilirubin AST ALT Alkaline Phosphatase Ammonia Pending Troponin I C-Reactive Protein NT-Pro-B Natriuret Pep Total Protein Albumin Lipase Vitamin B12 Folate Procalcitonin Urine Color Urine Appearance Urine pH Ur Specific [place] Urine Protein Urine Glucose (UA) Urine Ketones Ur Blood (Man) Urine Nitrate Urine Bilirubin Urine Urobilinogen Add Ur Microanalysis Leukocyte Esterase Rfl Urine RBC Urine WBC Ur Squamous Epith Cells Urine Bacteria Urine Casts POC Urine HCG, Qual Peritoneal Source Peritoneal Color Peritoneal Appearance Peritoneal RBC [place] Nuc Cells Periton Neutrophils Periton Lymphocytes Periton Macrophages Peritoneal Tot Protein Peritoneal Glucose Impressions Chest X-Ray 02/14/25 14:29 Impression: 1: Left basilar consolidation may represent atelectasis or pneumonia. 2: Small left pleural effusion. Venous Doppler Study 02/14/25 15:04 IMPRESSION: 1: No lower extremity deep venous thrombosis. Abdomen/Pelvis CT 02/14/25 15:11 IMPRESSION: 1. Gross ascites. 2. Possible liver cirrhosis. Clinical evaluation and follow-up advised. 3. 2 nodules in the right lung base PET CT scan and further evaluation advised. 4. Left pleural effusion with adjacent atelectasis versus pneumonia. Minimal right pleural effusion. 5. Cholelithiasis. 6. Edema in the subcutaneous tissues with fluid collections. 7. Possible enteritis of the small bowel with thickening of the wall. 8. Soft tissue density in the rectum with thickened wall. Clinical evaluation advised. Paracentesis Ultrasound 02/14/25 17:42 IMPRESSION: 1. Successful ultrasound-guided paracentesis yielding 3700 mL of cloudy yellow fluid. EKG: Sinus tachycardia short DC interval with occasional premature complexes rate 121 low-voltage QRS in precordial leads septal PR old QTC 463. No prior EKG available for comparison. Cardiology interpretation pending. All imaging and EKGs personally reviewed and interpreted. And unless stated otherwise agree with radiologic and cardiology interpretation. Assessment and Plan Assessment and plan (1) Sepsis: Qualifiers: Sepsis acute organ dysfunction status: with acute organ dysfunction S epsis type: sepsis due to unspecified organism Severe sepsis acute organ dysfunction type: encephalopathy Severe sepsis shock status: without septic shock Qualified Code(s): A41.9 - Sepsis, unspecified organism; R65.20 - Severe sepsis without septic shock; G93.41 - Metabolic encephalopathy Code(s): A41.9 - Sepsis, unspecified organism Status: Acute Assessment and Plan: Most likely due to SBP given cloudy appearance of peritoneal fluid. I suspect the x-ray findings on CT or more likely due to atelectasis and less likely pneumonia. Patient was given empiric antibiotic therapy with Rocephin 2 g IV in the ER and azithromycin. Will continue Rocephin for possible SBP. Blood cultures are pending. Will repeat CBC in a.m.. (2) SBP (spontaneous bacterial peritonitis): Code(s): K65.2 - Spontaneous bacterial peritonitis Status: Acute Assessment and Plan: Blood cultures have been obtained peritoneal fluid has been obtained and is pending culture. Patient is on empiric antibiotic therapy with Rocephin. (3) Alcoholic cirrhosis of liver with ascites: Code(s): K70.31 - Alcoholic cirrhosis of liver with ascites Status: Acute Assessment and Plan: For whatever reason the patient not on spironolactone or and her Xifaxan was only for a 10 day course. Given that she is encephalopathic at this time will check an ammonia. Her encephalopathy could in part be due to her dementia and or sepsis from SBP. But long-term the patient would benefit from Xifaxan. Will resume Xifaxan. Will also place patient on Lasix 40 mg IV daily. Will start spironolactone. Will monitor strict I&O's. Will continue home lactulose. (4) Pneumonia: Qualifiers: Laterality: left Lung location: lower lobe of lung Pneumonia type: due to unspecified organism Qualified Code(s): J18.9 - Pneumonia, unspecified organism Code(s): J18.9 - Pneumonia, unspecified organism Status: Acute Assessment and Plan: Possible left basilar infiltrate versus atelectasis. I suspect atelectasis more so due to the patient's degree of ascites and the fact that she is on room air and does not have any increased work of breathing or abnormal lung sounds. The patient was given Rocephin and azithromycin for empiric coverage. Given the cloudy appearance the patient's peritoneal fluid SBP is more likely. Will discontinue azithromycin. (5) Hypomagnesemia: Code(s): E83.42 - Hypomagnesemia Status: Acute Assessment and Plan: Moderate hypo magnesemia with value of 1.1. 2 g rider was given in the ER. Will given additional 2 g rider and will repeat level in a.m.. (6) Hypocalcemia: Code(s): E83.51 - Hypocalcemia Status: Acute Assessment and Plan: When corrected for the patient's severe hypoalbuminemia calcium is only mildly low at 8.3. 1 g calcium gluconate administer. (7) Anemia of chronic disease: Code(s): D63.8 - Anemia in other chronic diseases classified elsewhere Status: Acute Assessment and Plan: Patient had anemia with no prior values available for comparison. The iron studies at diet ordered have already returned. Pattern is consistent with anemia of chronic disease. Will repeat CBC in a.m.. (8) Hypokalemia: Code(s): E87.6 - Hypokalemia Status: Acute Assessment and Plan: Mild hypokalemia with potassium of 3.3. Forty medical and p.o. ordered. Repeat electrolyte panel in a.m.. (9) Hepatic encephalopathy: Code(s): K76.82 - Hepatic encephalopathy Status: Acute Assessment and Plan: Patient is encephalopathic is unclear if this could be in part due to acute underlying infection or strictly due to hepatic encephalopathy. Patient's baseline mental status is not exactly known. Although the patient seemed to be more conversant with staff in the ER according to notes. Will increase the patient's lactulose to q.6 hours and monitor. Will repeat ammonia level in a.m.. (10) Sinus tachycardia: Code(s): R00.0 - Tachycardia, unspecified Status: Acute Assessment and Plan: Due to sepsis and or could be some component of anemia. The patient's baseline hemoglobin is unknown. Will continue albumin supplementation. Will repeat CBC in a.m.. Will monitor rhythm on telemetry. Quality VTE Prophylaxis VTE prophylaxis: mechanical ordered (SCDs) Hospitalist MIPS Advance Care Plan I have confirmed that the patient's Advanced Care Plan is present, code status is documented, or surrogate decision maker is listed in patient medical record.: Yes Medication Reconciliation I have utilized all available resources to obtain, update and review the patients current medications (includes all prescriptions, OTC, herbals, cannabis, and nutritional supplements).: Yes
[2025-02-14] MEDS: MORPHINE SULFATE (*CRX) 2 MG/ML INJ IV PUSH (23:26)
[2025-02-14] MEDS: CALCIUM GLUC 1,000 MG/NS 50 ML 1,000 MG/50 ML BAG 100 MG IVPB (23:44)
[2025-02-14 23:46] LABS: Troponin I < 0.012 ng/mL (0.000-0.034)
[2025-02-15] VITALS (16 sets, daily range): BP systolic 124–166; BP diastolic 77–98; PULSE 110–130; RESP 18–28; TEMP 36.5–37.1; O2SAT 93–99; BMI 27.8
[2025-02-15 00:03] LABS: Ammonia 42 umol/L (9-30)
[2025-02-15] MEDS: MAGNESIUM SULF 2 GM/WATER 50ML 2 GM/50 ML BAG IVPB (00:37)
[2025-02-15] MEDS: ALBUMIN HUMAN 25% 25 GM/100 ML 100 ML IVPB ×2 (02:24→07:38)
[2025-02-15 06:25] LABS: Basophils Absolute Auto 0.1 K/mm3 (0.0-0.1); Basophils Percent Auto 0.5 % (0.2-1.2); Eosinophils Absolute Auto 0.5 K/mm3 (0-0.3); Eosinophils Percent Auto 2.5 % (0-4.4); Hematocrit 21.1 % (37.0-47.0); Immature Granulocyte Absolute 0.13 K/mm3 (0.00-0.031); Immature Granulocyte Percent A 0.7 % (0-0.5); Lymphocytes Absolute Auto 2.49 K/mm3 (0.9-3.2); Lymphocytes Percent Auto 12.8 % (18.3-44.2); Mean Corpuscular HGB Conc 30.8 g/dl (32-36); Mean Corpuscular Volume 90.9 fl (80-100); Mean Platelet Volume 11.3 fl (7.4-10.4); Monocytes Absolute Auto 1.5 K/mm3 (0.1-0.6); Monocytes Percent Auto 7.8 % (2.6-8.5); Neutrophils Absolute Auto 14.7 K/mm3 (1.3-6.7); Neutrophils Percent Auto 75.7 % (45.5-73.1); Platelet Count Result 334 k/mm3 (150-375); Red Blood Count 2.32 M/mm3 (4.2-5.4); Red Cell Distribution Width 21.9 % (11.5-14.5); White Blood Count 19.4 K/mm3 (4.5-10.0)
[2025-02-15 06:30] LABS: Hemoglobin 6.5 g/dL (12.0-15.0)
[2025-02-15 06:39] LABS: Alanine Aminotransferase 19 U/L (6-35); Albumin Level 2.6 g/dL (3.5-5.1); Alkaline Phosphatase 189 U/L (38-126); Anion Gap 8 mmol/L (4-12); Aspartate Amino Transferase 50 U/L (14-36); Bilirubin,Total 1.3 mg/dL (0.2-1.3); Blood Urea Nitrogen 13 mg/dL (7-17); Calcium 8.9 mg/dL (8.4-10.2); Carbon Dioxide 23 mmol/L (22-30); Chloride 111 mmol/L (98-107); Estimated CRCL calculation 83 ml/min; Estimated Glomerular Filt Rate > 60; Glucose 96 mg/dL (65-110); Magnesium 1.9 mg/dL (1.6-2.3); Potassium 4.3 mmol/L (3.4-5.0); Sodium 142 mmol/L (137-145)
[2025-02-15 06:43] LABS: INR 1.5; Prothrombin Time 18.6 Seconds (11.1-14.7)
--- NOTE | 2025-02-15 07:12 | P.CONGI_ITS ---
Assessment and Plan Assessment and plan (1) Alcoholic cirrhosis of liver with ascites: Code(s): K70.31 - Alcoholic cirrhosis of liver with ascites Status: Acute Assessment and Plan: This patient presents with alcohol-related cirrhosis and new-onset, uninfected ascites. Her elevated white blood cell count and lung infiltrate suggest pneumonia, for which she's being treated with ceftriaxone and azithromycin. Diuretic therapy for ascites has been initiated with oral diuretics : furosemide 40 mg daily and spironolactone 100 mg daily. During her hospitalization, we'll monitor her white blood cell count. Upon discharge, she should receive counseling for alcohol cessation, and we can arrange outpatient follow-up. Of note, two lung nodules were described and warrant further attention during her stay. A pulmonary consultation is recommended to evaluate these. 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 Additionally, she was found to have a left pleural effusion with atelectasis versus pneumonia. She is a poor historian and cannot provide an exact history of her alcohol consumption. A CT scan revealed gross ascites, from which 3200 cc of clear yellow fluid was drained; fluid analysis did not show increased PMNs. Admission laboratory data included a white count of 22.3, hemoglobin of 8.0, platelet count of 332, INR of 1.4, sodium of 144, creatinine of 0.67, bilirubin of 1.2, AST of 65, ALT of 24, vitamin B12 of 140, and iron saturation of 33%, resulting in a MELD 3.0 score of 14. Review of Systems 2 Review of Systems: All systems reviewed & are unremarkable except as noted in HPI and below PMFSH Past Medical History Medical History (Updated 02/14/25 @ 23:35 by Domenica Arnold DO) Polysubstance abuse Anxiety and depression Diabetes mellitus GERD (gastroesophageal reflux disease) Emphysema lung Peripheral neuropathy 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 Anemia of chronic disease Surgical History Surgical History (Updated 02/14/25 @ 23:34 by Domenica Arnold DO) Status post cataract extraction of both eyes with insertion of intraocular lens (09/2024) Family History Family History (Updated 02/15/25 @ 02:06 by Vonda Snyder RN) Other Unknown family medical history Social History Social History Smoking status: Former smoker Alcohol intake: former Substance use: former Substance use type: crack/cocaine and prescription drug Spiritual care concerns: No Meds Home Medications and Allergies Home Medications ?Medication ?Instructions ?Recorded ?Confirmed ?Type bisacodyl 5 mg tablet,delayed 5 mg PO DAILY PRN constipation 02/14/25 02/14/25 History release (Alophen (bisacodyl)) furosemide 20 mg tablet 20 mg PO DAILY 02/14/25 02/14/25 History gabapentin 300 mg capsule 300 mg PO TID 02/14/25 02/14/25 History lactulose 10 gram/15 mL oral 10 g PO BID 02/14/25 02/14/25 History solution (Constulose) lidocaine 5 % topical patch 2 patch topical DAILY 02/14/25 02/14/25 History mesalamine 500 mg capsule,extended 1,200 mg PO DAILY 02/14/25 02/14/25 History release (Pentasa) multivitamin-iron 9 mg-folic acid 1 tablet PO DAILY 02/14/25 02/14/25 History 400 mcg-calcium and minerals tablet (Thera-M) pantoprazole 40 mg granules 40 mg PO DAILY 02/14/25 02/14/25 History delayed-release for susp in packet (Protonix) rifaximin 550 mg tablet (Xifaxan) 550 mg PO BID 02/14/25 02/14/25 History thiamine mononitrate (vit B1) 100 100 mg PO DAILY 02/14/25 02/14/25 History mg tablet (Vitamin B-1 (mononitrate)) tramadol 50 mg tablet 50 mg PO Q6H PRN pain 02/14/25 02/14/25 History Allergies Allergy/AdvReac Type Severity Reaction Status Date / Time ciprofloxacin Allergy Unknown Verified 02/14/25 19:54 metronidazole (From Flagyl) Allergy Unknown Verified 02/14/25 19:54 Vital Signs Vital Signs - 24 hr 02/14/25 12:55 02/14/25 15:42 02/14/25 16:15 Temperature 97.4 F L Pulse Rate 80 120 H 120 H Respiratory Rate 16 18 16 Blood Pressure 154/96 H 172/112 H Pulse Oximetry 98 98 100 Oxygen Delivery Room Air 02/14/25 17:00 02/14/25 17:45 02/14/25 19:15 Temperature 98.8 F Pulse Rate 110 H 120 H 129 H Respiratory Rate 16 16 22 H Blood Pressure 171/106 H 167/104 H 173/107 H Pulse Oximetry 100 100 98 Oxygen Delivery 02/14/25 20:00 02/14/25 20:40 02/14/25 22:00 Temperature 98.4 F Pulse Rate 131 H 77 Respiratory Rate 18 Blood Pressure 138/81 Pulse Oximetry 93 Oxygen Delivery Room Air 02/15/25 00:00 02/15/25 04:00 02/15/25 06:00 Temperature 98.7 F Pulse Rate 117 H 110 H 111 H Respiratory Rate 18 Blood Pressure 124/82 Pulse Oximetry 93 Oxygen Delivery Exam 2 Narrative: Cooperative, but poorly communicative. Abdomen: Soft, nontender, shifting dullness. Extremities: 3+ pitting edema in feet, calves and thighs. Neurologically: Grossly intact Results Labs 02/15/25 06:13 02/15/25 06:13 Labs: Short CBC 02/14/25 02/15/25 Range/Units 13:36 06:13 WBC 22.3 H 19.4 H (4.5-10.0) K/mm3 Hgb 8.0 L 6.5 L* (12.0-15.0) g/dL Hct 26.8 L 21.1 L (37.0-47.0) % Plt Count 332 334 (150-375) k/mm3 BMP 02/14/25 02/15/25 13:36 06:13 Sodium 144 142 Potassium 3.3 L 4.3 Chloride 118 H 111 H Carbon Dioxide 19 L 23 BUN 12 13 Creatinine 0.67 L 0.69 L Glucose 144 H 96 Calcium 6.7 L 8.9 Cardiac Enzymes 02/14/25 02/14/25 Range/Units 13:36 21:02 Troponin I < 0.012 < 0.012 (0.000-0.034) ng/mL Liver Function 02/14/25 02/15/25 Range/Units 13:36 06:13 Total Bilirubin 1.2 1.3 (0.2-1.3) mg/dL AST 65 H 50 H (14-36) U/L ALT 24 19 (6-35) U/L Alkaline Phosphatase 236 H 189 H (38-126) U/L Albumin 2.0 L 2.6 L (3.5-5.1) g/dL Urine 02/14/25 Range/Units 13:26 Urine Color Dark yellow (Yellow) Urine Appearance Clear (Clear) Urine pH 5.5 (5.0-9.0) Ur Specific [place] 1.016 (1.001-1.035) Urine Protein Negative (Negative) mg/dL Urine Glucose (UA) Negative (Negative) mg/dL
[2025-02-15] MEDS: FUROSEMIDE 40 MG TABLET PO (08:09)
[2025-02-15] MEDS: PANTOPRAZOLE 40 MG TABLET PO (08:09)
[2025-02-15] MEDS: LACTULOSE 20 GM/30 ML UDC 10 GM PO (08:09)
[2025-02-15] MEDS: SPIRONOLACTONE 50 MG TABLET 100 MG PO (08:09)
[2025-02-15] MEDS: rifAXIMin 550 MG TABLET PO ×2 (08:10→16:30)
[2025-02-15] MEDS: THIAMINE HCL 100 MG TABLET PO (08:10)
[2025-02-15] MEDS: THERAPEUTIC MULTIVITAMINS/MINERALS TAB (*BKC) 1 TABLET PO (08:10)
[2025-02-15] MEDS: GABAPENTIN 300 MG CAPSULE PO ×3 (08:10→16:30)
[2025-02-15] MEDS: LIDOCAINE 5% PATCH 2 PATCH TOPICAL (08:11)
[2025-02-15 08:22] LABS: Glucose Point of Care 96 mg/dl (65-105)
[2025-02-15] MEDS: DOXYCYCLINE 100 MG/NS 100 ML 100 MG/100 ML BAG IVPB ×2 (08:56→21:01)
[2025-02-15] MEDS: SODIUM CHLORIDE 0.9% IV 250 ML 30 ML IV CONT (09:29)
[2025-02-15 09:56] LABS: Iron 35 ug/dL (37-170)
[2025-02-15 10:05] LABS: Percent Iron Saturation 28 % (20-50)
--- NOTE | 2025-02-15 11:37 | P.PNIM_ITS ---
Progress Note: A&P Assessment and Plan (1) Sepsis: Qualifiers: Sepsis type: sepsis due to unspecified organism Sepsis acute organ dysfunction status: with acute organ dysfunction Severe sepsis acute organ dysfunction type: encephalopathy Severe sepsis shock status: without septic shock Qualified Code(s): A41.9 - Sepsis, unspecified organism; R65.20 - Severe sepsis without septic shock; G93.41 - Metabolic encephalopathy Code(s): A41.9 - Sepsis, unspecified organism Status: Acute Assessment and Plan: likely from [facility] CT Chest reviewed F/u cultures, Contineu rocephin and Doxycycline monitor (2) SBP (spontaneous bacterial peritonitis): Code(s): K65.2 - Spontaneous bacterial peritonitis Status: Acute Assessment and Plan: ruled out neutrophil count <250 (3) Alcoholic cirrhosis of liver with ascites: Code(s): K70.31 - Alcoholic cirrhosis of liver with ascites Status: Acute Assessment and Plan: s/p Paracentesis Continue Lasix and SPironolactone and Xifaxin monitor (4) Pneumonia: Qualifiers: Laterality: left Lung location: lower lobe of lung Pneumonia type: due to unspecified organism Qualified Code(s): J18.9 - Pneumonia, unspecified organism Code(s): J18.9 - Pneumonia, unspecified organism Status: Acute Assessment and Plan: CT chest reviewed Continue Rocephin and Doxycycline monitor (5) Hypomagnesemia: Code(s): E83.42 - Hypomagnesemia Status: Acute Assessment and Plan: replaced and monitor (6) Hypocalcemia: Code(s): E83.51 - Hypocalcemia Status: Acute Assessment and Plan: replaced and wnl (7) Anemia of chronic disease: Code(s): D63.8 - Anemia in other chronic diseases classified elsewhere Status: Acute Assessment and Plan: Hb 6.5, Isat 28, b12 840 and Folic acid 8.4 transfuse 1 unit pRBC monitor (8) Hypokalemia: Code(s): E87.6 - Hypokalemia Status: Acute Assessment and Plan: K 4.3 monitor (9) Hepatic encephalopathy: Code(s): K76.82 - Hepatic encephalopathy Status: Acute Assessment and Plan: NH3 42 On lactulose monitor mental status much improved (10) Sinus tachycardia: Code(s): R00.0 - Tachycardia, unspecified Status: Acute Assessment and Plan: Due to sepsis and or could be some component of anemia. The patient's baseline hemoglobin is unknown. Will continue albumin supplementation. Will repeat CBC in a.m.. Will monitor rhythm on telemetry. Plan Hypertension BP 156/90 Started Amlodipine 5mg continue Lasix and Spironolactone monitor DVT prophylaxis on SCDs, pending FOBT result Subjective Date/time seen: 02/15/25 11:37 Interval history: Comfortable at bedside Peritoneal fluid eval negative for SBP CTAP and chest showed possible pneumonia Review of Systems Review of Systems: ROS unobtainable: Yes unobtainable due to mental status Exam Narrative: Weight 75.5 kg BMI 26.6 Const: Other: Chronically ill-appearing, appears much older than stated age, no acute distress HENMT: Other: Mucous membranes are tacky, dentures in place with significant plaquing to the dentures Eyes: Other: Marked conjunctival pallor, no scleral icterus, pupils are equal and reactive Neck: Other: No JVD, no lymphadenopathy Resp: Other: Clear to auscultation bilaterally, no increased work of breathing Cardio: Other: Sinus tachycardia, 2+ bilateral radial pedal pulses, no JVD no murmur GI: Other: Distended, soft, nontender, normoactive bowel sounds : Other: Pure wick catheter in place incontinent of urine, urine in suction canister is dark yellow and turbid Skin: Other: Normal temperature to touch, non jaundice, 3-4 second cap refill, chronic venous stasis changes to bilateral lower extremities left greater than right tattoo noted circling the left ankle, skin legs warm to touch bilaterally, the patient has maceration of skin to the buttocks Neuro: Other: The patient opens her eyes and looks at staff when her name is called, she does not verbalize her name and further orientation questions are not able to be performed, the patient will squeeze examiner's hands with prompting, she will stick her tongue out, she is only intermittently following commands her area responses are delayed and slowed, sensation seem to be intact is the patient does withdrawal from painful stimuli Extrem: Other: Bilateral lower extremity edema left may be slightly worse than right 1 to 2+ in nature extending up the calves into the thighs, abdomen also has some edema consistent with anasarca Psych: Other: Encephalopathic, calm Objective Data Vital Signs Vital Signs: Vital Signs - 24 hr 02/14/25 12:55 02/14/25 15:42 02/14/25 16:15 Temperature 97.4 F L Pulse Rate 80 120 H 120 H Respiratory Rate 16 18 16 Blood Pressure 154/96 H 172/112 H Pulse Oximetry 98 98 100 Oxygen Delivery Room Air 02/14/25 17:00 02/14/25 17:45 02/14/25 19:15 Temperature 98.8 F Pulse Rate 110 H 120 H 129 H Respiratory Rate 16 16 22 H Blood Pressure 171/106 H 167/104 H 173/107 H Pulse Oximetry 100 100 98 Oxygen Delivery 02/14/25 20:00 02/14/25 20:40 02/14/25 22:00 Temperature 98.4 F Pulse Rate 131 H 77 Respiratory Rate 18 Blood Pressure 138/81 Pulse Oximetry 93 Oxygen Delivery Room Air 02/15/25 00:00 02/15/25 04:00 02/15/25 06:00 Temperature 98.7 F Pulse Rate 117 H 110 H 111 H Respiratory Rate 18 Blood Pressure 124/82 Pulse Oximetry 93 Oxygen Delivery 02/15/25 08:11 02/15/25 09:55 02/15/25 09:55 Temperature 98.5 F 98.5 F Pulse Rate 118 H 118 H 118 H Respiratory Rate 28 H 28 H 28 H Blood Pressure 124/84 124/84 Pulse Oximetry 99 99 99 Oxygen Delivery Room Air 02/15/25 09:55 02/15/25 09:55 02/15/25 09:55 Temperature 98.5 F 98.5 F 98.5 F Pulse Rate 118 H 118 H 118 H Respiratory Rate 28 H 28 H 28 H Blood Pressure 124/84 124/84 124/84 Pulse Oximetry 99 99 99 Oxygen Delivery 02/15/25 09:55 02/15/25 10:00 02/15/25 10:10 Temperature 98.5 F 98.5 F 97.7 F Pulse Rate 118 H 118 H 115 H Respiratory Rate 28 H 28 H 24 H Blood Pressure 124/84 124/84 131/77 Pulse Oximetry 99 99 98 Oxygen Delivery 02/15/25 10:10 02/15/25 11:10 Temperature 97.7 F 98.7 F Pulse Rate 115 H 115 H Respiratory Rate 24 H 20 Blood Pressure 131/77 156/90 H Pulse Oximetry 98 98 Oxygen Delivery Intake/Output Intake/Output: Intake & Output 02/12/25 02/13/25 02/14/25 02/15/25 23:59 23:59 23:59 23:59 Intake Total 500 970 Output Total 2825 200 Balance -2325 770 Meds/Results Medications: Active Medications Generic Name Dose Route Start Last Admin Trade Name Freq PRN Reason Stop Dose Admin Bisacodyl 5 mg 02/14/25 20:42 Bisacodyl 5 Mg Tablet Ec PO DAILY PRN constipation Furosemide 40 mg 02/15/25 09:00 02/15/25 08:09 Furosemide 40 Mg Tablet PO 40 mg DAILY GARRETT Administration Gabapentin 300 mg 02/14/25 20:50 02/15/25 08:10 Gabapentin 300 Mg Capsule PO 300 mg TID GARRETT Administration Ceftriaxone Sodium 2 gm in 100 mls @ 200 mls/hr 02/15/25 18:00 Rocephin 2 Gm/Ns 100 Ml IVPB Q24H GARRETT Albumin Human 100 mls @ 60 mls/hr 02/15/25 08:00 02/15/25 09:21 Albutein IVPB 02/15/25 15:39 Infused Q6H GARRETT Infusion Sodium Chloride 250 mls @ 30 mls/hr 02/15/25 07:17 02/15/25 09:29 Normal Saline Iv IV CONT 02/15/25 15:36 30 mls/hr .Q8H20M STA Administration Doxycycline Hyclate 100 mg in 100 mls @ 100 mls/hr 02/15/25 09:00 02/15/25 09:56 Vibramycin 100 Mg/Ns 100 Ml IVPB Infused Q12H GARRETT Infusion Lactulose 10 gm 02/15/25 06:49 02/15/25 08:09 Lactulose 20 Gm/30 Ml Udc PO 10 gm Q6HR GARRETT Administration Lidocaine 2 patch 02/15/25 09:00 02/15/25 08:11 Lidocaine 5% Patch TOPICAL 2 patch DAILY GARRETT Administration Multivitamins/Calcium 1 tablet 02/15/25 09:00 02/15/25 08:10 Therapeutic Multivitamins/Minerals Tab (*Bkc) PO 1 tablet DAILY GARRETT Administration Pantoprazole Sodium 40 mg 02/15/25 09:00 02/15/25 08:09 Pantoprazole 40 Mg Tablet PO 40 mg QAM GARRETT Administration Rifaximin 550 mg 02/15/25 09:00 02/15/25 08:10 Rifaximin 550 Mg Tablet PO 550 mg BID GARRETT Administration Spironolactone 100 mg 02/15/25 09:00 02/15/25 08:09 Spironolactone 50 Mg Tablet PO 100 mg QAM GARRETT Administration Thiamine HCl 100 mg 02/15/25 09:00 02/15/25 08:10 Thiamine Hcl 100 Mg Tablet PO 100 mg DAILY GARRETT Administration Radiology Results: ITS Impressions Chest X-Ray 02/14/25 14:29 Impression: 1: Left basilar consolidation may represent atelectasis or pneumonia. 2: Small left pleural effusion. Venous Doppler Study 02/14/25 15:04 IMPRESSION: 1: No lower extremity deep venous thrombosis. Abdomen/Pelvis CT 02/14/25 15:11 IMPRESSION: 1. Gross ascites. 2. Possible liver cirrhosis. Clinical evaluation and follow-up advised. 3. 2 nodules in the right lung base PET CT scan and further evaluation advised. 4. Left pleural effusion with adjacent atelectasis versus pneumonia. Minimal right pleural effusion. 5. Cholelithiasis. 6. Edema in the subcutaneous tissues with fluid collections. 7. Possible enteritis of the small bowel with thickening of the wall. 8. Soft tissue density in the rectum with thickened wall. Clinical evaluation advised. Paracentesis Ultrasound 02/14/25 17:42 IMPRESSION: 1. Successful ultrasound-guided paracentesis yielding 3700 mL of cloudy yellow fluid. Labs Labs: Laboratory Results - last 24 hr 02/14/25 02/14/25 02/14/25 13:26 13:36 13:40 WBC 22.3 H RBC 2.93 L Hgb 8.0 L Hct 26.8 L MCV 91.5 MCH 27.3 MCHC 29.9 L RDW 21.9 H Plt Count 332 MPV 11.0 H Immature Gran % (Auto) 0.9 H Neut % (Auto) 78.0 H Lymph % (Auto) 10.6 L [place] % (Auto) 7.6 Eos % (Auto) 2.5 Baso % (Auto) 0.4 Lymph # (Auto) 2.37 [place] # (Auto) 1.7 H Eos # (Auto) 0.6 H Baso # (Auto) 0.1 Abs Immat Gran (auto) 0.19 H Absolute Neuts (auto) 17.4 H Absolute Nucleated RBC 0.000 Band Neutrophils % Not Reportable Nucleated RBC % 0.0 Platelet Estimate Adequate Hypochromasia 1+ Anisocytosis 1+ Target Cells 1+ Schistocytes None seen PT INR APTT Sodium 144 Potassium 3.3 L Chloride 118 H Carbon Dioxide 19 L Anion Gap 7 BUN 12 Creatinine 0.67 L Estim Creat Clear Calc 87 Estimated GFR > 60 Glucose 144 H POC Capillary Glucose Lactic Acid Calcium 6.7 L Magnesium 1.1 L Iron TIBC % Saturation Ferritin Total Bilirubin 1.2 AST 65 H ALT 24 Alkaline Phosphatase 236 H Ammonia Troponin I < 0.012 C-Reactive Protein NT-Pro-B Natriuret Pep 464 H Total Protein 6.0 L Albumin 2.0 L Lipase 17 L Vitamin B12 Folate Procalcitonin Urine Color Dark yellow Urine Appearance Clear Urine pH 5.5 Ur Specific [place] 1.016 Urine Protein Negative Urine Glucose (UA) Negative Urine Ketones Negative Ur Blood (Man) Negative Urine Nitrate Negative Urine Bilirubin Negative Urine Urobilinogen 1.0 Add Ur Microanalysis Reviewed Leukocyte Esterase Rfl Trace H Urine RBC 0-2 Urine WBC 0-5 Ur Squamous Epith Cells Occasional Urine Bacteria None seen Urine Casts 3-5 POC Urine HCG, Qual Negative Peritoneal Source Peritoneal Color Peritoneal Appearance Peritoneal RBC Periton Nuc Cells Periton Neutrophils Periton Lymphocytes Periton Macrophages Blood Type Antibody Screen Crossmatch 02/14/25 02/14/25 02/14/25 17:20 21:02 21:15 WBC RBC Hgb Hct MCV MCH MCHC RDW Plt Count MPV Immature Gran % (Auto) Neut % (Auto) Lymph % (Auto) [place] % (Auto) Eos % (Auto) Baso % (Auto) Lymph # (Auto) [place] # (Auto) Eos # (Auto) Baso # (Auto) Abs Immat Gran (auto) Absolute Neuts (auto) Absolute Nucleated RBC Band Neutrophils % Nucleated RBC % Platelet Estimate Hypochromasia Anisocytosis Target Cells Schistocytes PT 17.1 H INR 1.4 APTT 43.6 H Sodium Potassium Chloride Carbon Dioxide Anion Gap BUN Creatinine Estim Creat Clear Calc Estimated GFR Glucose POC Capillary Glucose Lactic Acid Calcium Magnesium Iron 51 TIBC 154 L % Saturation 33 Ferritin 392.00 H Total Bilirubin AST ALT Alkaline Phosphatase Ammonia Troponin I < 0.012 C-Reactive Protein 4.4 H NT-Pro-B Natriuret Pep Total Protein Albumin Lipase Vitamin B12 840.0 Folate 8.4 Procalcitonin 0.7 Urine Color Urine Appearance Urine pH Ur Specific [place] Urine Protein Urine Glucose (UA) Urine Ketones Ur Blood (Man) Urine Nitrate Urine Bilirubin Urine Urobilinogen Add Ur Microanalysis Leukocyte Esterase Rfl Urine RBC Urine WBC Ur Squamous Epith Cells Urine Bacteria Urine Casts POC Urine HCG, Qual Peritoneal Source Peritoneal fluid Peritoneal Color Yellow Peritoneal Appearance Cloudy A Peritoneal RBC < 2000 Periton Nuc Cells 87 Periton Neutrophils 11 Periton Lymphocytes 30 Periton Macrophages 59 Blood Type Antibody Screen Crossmatch 02/14/25 02/14/25 02/14/25 21:31 22:03 23:42 WBC RBC Hgb Hct MCV MCH MCHC RDW Plt Count MPV Immature Gran % (Auto) Neut % (Auto) Lymph % (Auto) [place] % (Auto) Eos % (Auto) Baso % (Auto) Lymph # (Auto) [place] # (Auto) Eos # (Auto) Baso # (Auto) Abs Immat Gran (auto) Absolute Neuts (auto) Absolute Nucleated RBC Band Neutrophils % Nucleated RBC % Platelet Estimate Hypochromasia Anisocytosis Target Cells Schistocytes PT INR APTT Sodium Potassium Chloride Carbon Dioxide Anion Gap BUN Creatinine Estim Creat Clear Calc Estimated GFR Glucose POC Capillary Glucose 129 H Lactic Acid 2.0 Calcium Magnesium Iron TIBC % Saturation Ferritin Total Bilirubin AST ALT Alkaline Phosphatase Ammonia 42 H Troponin I C-Reactive Protein NT-Pro-B Natriuret Pep Total Protein Albumin Lipase Vitamin B12 Folate Procalcitonin Urine Color Urine Appearance Urine pH Ur Specific [place] Urine Protein Urine Glucose (UA) Urine Ketones Ur Blood (Man) Urine Nitrate Urine Bilirubin Urine Urobilinogen Add Ur Microanalysis Leukocyte Esterase Rfl Urine RBC Urine WBC Ur Squamous Epith Cells Urine Bacteria Urine Casts POC Urine HCG, Qual Peritoneal Source Peritoneal Color Peritoneal Appearance Peritoneal RBC Periton Nuc Cells Periton Neutrophils Periton Lymphocytes Periton Macrophages Blood Type Antibody Screen Crossmatch 02/15/25 02/15/25 02/15/25 06:08 06:13 07:30 WBC 19.4 H RBC 2.32 L Hgb 6.5 L* Hct 21.1 L MCV 90.9 MCH 28.0 MCHC 30.8 L RDW 21.9 H Plt Count 334 MPV 11.3 H Immature Gran % (Auto) 0.7 H Neut % (Auto) 75.7 H Lymph % (Auto) 12.8 L [place] % (Auto) 7.8 Eos % (Auto) 2.5 Baso % (Auto) 0.5 Lymph # (Auto) 2.49 [place] # (Auto) 1.5 H Eos # (Auto) 0.5 H Baso # (Auto) 0.1 Abs Immat Gran (auto) 0.13 H Absolute Neuts (auto) 14.7 H Absolute Nucleated RBC 0.000 Band Neutrophils % Nucleated RBC % 0.0 Platelet Estimate Hypochromasia Anisocytosis Target Cells Schistocytes PT 18.6 H INR 1.5 APTT 50.0 H Sodium 142 Potassium 4.3 Chloride 111 H Carbon Dioxide 23 Anion Gap 8 BUN 13 Creatinine 0.69 L Estim Creat Clear Calc 83 Estimated GFR > 60 Glucose 96 POC Capillary Glucose Lactic Acid Calcium 8.9 Magnesium 1.9 Iron 35 L TIBC 126 L % Saturation 28 Ferritin 292.00 H Total Bilirubin 1.3 AST 50 H ALT 19 Alkaline Phosphatase 189 H Ammonia Troponin I C-Reactive Protein NT-Pro-B Natriuret Pep Total Protein 6.0 L Albumin 2.6 L Lipase Vitamin B12 Folate Procalcitonin Urine Color Urine Appearance Urine pH Ur Specific [place] Urine Protein Urine Glucose (UA) Urine Ketones Ur Blood (Man) Urine Nitrate Urine Bilirubin Urine Urobilinogen Add Ur Microanalysis Leukocyte Esterase Rfl Urine RBC Urine WBC Ur Squamous Epith Cells Urine Bacteria Urine Casts POC Urine HCG, Qual Peritoneal Source Peritoneal Color Peritoneal Appearance Peritoneal RBC Periton Nuc Cells Periton Neutrophils Periton Lymphocytes Periton Macrophages Blood Type O Positive Antibody Screen Negative Crossmatch See Detail 02/15/25 08:12 WBC RBC Hgb Hct MCV MCH MCHC RDW Plt Count MPV Immature Gran % (Auto) Neut % (Auto) Lymph % (Auto) [place] % (Auto) Eos % (Auto) Baso % (Auto) Lymph # (Auto) [place] # (Auto) Eos # (Auto) Baso # (Auto) Abs Immat Gran (auto) Absolute Neuts (auto) Absolute Nucleated RBC Band Neutrophils % Nucleated RBC % Platelet Estimate Hypochromasia Anisocytosis Target Cells Schistocytes PT INR APTT Sodium Potassium Chloride Carbon Dioxide Anion Gap BUN Creatinine Estim Creat Clear Calc Estimated GFR Glucose POC Capillary Glucose 96 Lactic Acid Calcium Magnesium Iron TIBC % Saturation Ferritin Total Bilirubin AST ALT Alkaline Phosphatase Ammonia Troponin I C-Reactive Protein NT-Pro-B Natriuret Pep Total Protein Albumin Lipase Vitamin B12 Folate Procalcitonin Urine Color Urine Appearance Urine pH Ur Specific [place] Urine Protein Urine Glucose (UA) Urine Ketones Ur Blood (Man) Urine Nitrate Urine Bilirubin Urine Urobilinogen Add Ur Microanalysis Leukocyte Esterase Rfl Urine RBC Urine WBC Ur Squamous Epith Cells Urine Bacteria Urine Casts POC Urine HCG, Qual Peritoneal Source Peritoneal Color Peritoneal Appearance Peritoneal RBC Periton Nuc Cells Periton Neutrophils Periton Lymphocytes Periton Macrophages Blood Type Antibody Screen Crossmatch Quality VTE Prophylaxis VTE prophylaxis: mechanical ordered (SCDs)
[2025-02-15 11:54] LABS: Glucose Point of Care 154 mg/dl (65-105)
[2025-02-15] MEDS: amLODIPine BESYLATE 5 MG TABLET PO (12:09)
[2025-02-15 12:28] LABS: IFOB Positive Control Positive; Immunochemical Fecal Occult Bl Negative (N)
[2025-02-15] MEDS: ALBUMIN HUMAN 25% 25 GM/100 ML 100 ML 6 GM IVPB (13:19)
--- NOTE | 2025-02-15 14:54 | PC.NURSE ---
Hattie Peralta received one unit of pack red blood cells unit number [id number] on 02/15/25 which began at 0955 and ended at 1305. Vital signs are in the computer. Verified and began with Domenica Araya RN. When we noticed that the blood would not allow us to verify and begin in [facility] Lissett Swift RN came into the room and we attempted multiple times to put the initial set of vital signs and rescan the blood and back time the blood start time in the computer but the computer would not accept it. [facility] was notified of the issue. Issue is still not resolved at the the time of this note. Blood bank will receive a copy of vital signs.
[2025-02-15 17:14] LABS: Glucose Point of Care 164 mg/dl (65-105)
[2025-02-15] MEDS: cefTRIAXone 2 GM/NS 100 ML 2 GM/100 ML BAG IVPB (17:56)
[2025-02-15 20:19] LABS: Glucose Point of Care 172 mg/dl (65-105)
[2025-02-15] MEDS: MORPHINE SULFATE (*CRX) 2 MG/ML INJ IV PUSH (23:21)
[2025-02-16] VITALS (11 sets, daily range): BP systolic 132–149; BP diastolic 74–95; PULSE 114–126; RESP 18; TEMP 37.1–37.7; O2SAT 96–99
[2025-02-16 07:54] LABS: Glucose Point of Care 204 mg/dl (65-105)
[2025-02-16 08:32] LABS: Basophils Absolute Auto 0.1 K/mm3 (0.0-0.1); Basophils Percent Auto 0.4 % (0.2-1.2); Eosinophils Absolute Auto 0.4 K/mm3 (0-0.3); Eosinophils Percent Auto 1.7 % (0-4.4); Hemoglobin 8.7 g/dL (12.0-15.0); Immature Granulocyte Absolute 0.21 K/mm3 (0.00-0.031); Immature Granulocyte Percent A 0.9 % (0-0.5); Lymphocytes Absolute Auto 2.26 K/mm3 (0.9-3.2); Mean Corpuscular HGB Conc 31.1 g/dl (32-36); Mean Corpuscular Hemoglobin 28.4 pg (26-34); Mean Corpuscular Volume 91.5 fl (80-100); Monocytes Absolute Auto 1.8 K/mm3 (0.1-0.6); Monocytes Percent Auto 7.7 % (2.6-8.5); Neutrophils Percent Auto 79.3 % (45.5-73.1); Platelet Count Result 317 k/mm3 (150-375); Red Blood Count 3.06 M/mm3 (4.2-5.4); White Blood Count 22.7 K/mm3 (4.5-10.0)
[2025-02-16 08:34] LABS: Alanine Aminotransferase 20 U/L (6-35); Albumin Level 3.1 g/dL (3.5-5.1); Alkaline Phosphatase 201 U/L (38-126); Anion Gap 10 mmol/L (4-12); Aspartate Amino Transferase 52 U/L (14-36); Bilirubin,Total 1.3 mg/dL (0.2-1.3); Blood Urea Nitrogen 14 mg/dL (7-17); Calcium 9.2 mg/dL (8.4-10.2); Carbon Dioxide 23 mmol/L (22-30); Chloride 109 mmol/L (98-107); Estimated CRCL calculation 64 ml/min; Estimated Glomerular Filt Rate > 60; Glucose 204 mg/dL (65-110); Magnesium 1.5 mg/dL (1.6-2.3); Potassium 4.4 mmol/L (3.4-5.0); Sodium 142 mmol/L (137-145)
[2025-02-16 08:36] LABS: Ammonia 30 umol/L (9-30)
[2025-02-16] MEDS: THIAMINE HCL 100 MG TABLET PO (08:36)
[2025-02-16] MEDS: LIDOCAINE 5% PATCH 2 PATCH TOPICAL (08:36)
[2025-02-16] MEDS: SPIRONOLACTONE 50 MG TABLET 100 MG PO (08:36)
[2025-02-16] MEDS: rifAXIMin 550 MG TABLET PO ×2 (08:36→16:39)
[2025-02-16] MEDS: PANTOPRAZOLE 40 MG TABLET PO (08:36)
[2025-02-16] MEDS: amLODIPine BESYLATE 5 MG TABLET PO (08:37)
[2025-02-16] MEDS: DOXYCYCLINE 100 MG/NS 100 ML 100 MG/100 ML BAG IVPB ×2 (08:37→20:33)
[2025-02-16] MEDS: GABAPENTIN 300 MG CAPSULE PO ×3 (08:37→16:39)
[2025-02-16] MEDS: FUROSEMIDE 40 MG TABLET PO (08:37)
[2025-02-16] MEDS: THERAPEUTIC MULTIVITAMINS/MINERALS TAB (*BKC) 1 TABLET PO (08:37)
--- NOTE | 2025-02-16 08:37 | WPDGIPROGNO ---
Progress Note: A&P Assessment and Plan (1) Alcoholic cirrhosis of liver with ascites: Code(s): K70.31 - Alcoholic cirrhosis of liver with ascites Status: Acute Assessment and Plan: Patient with new onset ascites secondary to alcoholic cirrhosis. Responding to diuretics, renal function preserved. Will still need to complete antibiotic treatment for pneumonia, white count trending down, anticipate discharge soon depending on white count. Will have to be discharged on an appropriate oral regimen for pneumonia. Will continue diuretics and will follow her up in clinic in about 2 weeks. Subjective Date/time seen: 02/16/25 08:37 Interval history: the patient had adequate urinary output yesterday and is more alert today. No complaints, no shortness of breath or abdominal pain. White count trending down although still high. Exam Narrative: Less edema on lower extremities. abdomen: Soft, nontender, still exhibiting shifting dullness. Rest of the exam unchanged. Objective Data Vital Signs Vital Signs: Vital Signs - 24 hr 02/15/25 09:55 02/15/25 09:55 02/15/25 09:55 Temperature 98.5 F 98.5 F 98.5 F Pulse Rate 118 H 118 H 118 H Respiratory Rate 28 H 28 H 28 H Blood Pressure 124/84 124/84 124/84 Pulse Oximetry 99 99 99 Oxygen Delivery 02/15/25 09:55 02/15/25 09:55 02/15/25 09:55 Temperature 98.5 F 98.5 F 98.5 F Pulse Rate 118 H 118 H 118 H Respiratory Rate 28 H 28 H 28 H Blood Pressure 124/84 124/84 124/84 Pulse Oximetry 99 99 99 Oxygen Delivery 02/15/25 09:55 02/15/25 10:00 02/15/25 10:10 Temperature 98.5 F 98.5 F 97.7 F Pulse Rate 118 H 118 H 115 H Respiratory Rate 28 H 28 H 24 H Blood Pressure 124/84 124/84 131/77 Pulse Oximetry 99 99 98 Oxygen Delivery 02/15/25 10:10 02/15/25 11:10 02/15/25 12:02 Temperature 97.7 F 98.7 F Pulse Rate 115 H 115 H 119 H Respiratory Rate 24 H 20 Blood Pressure 131/77 156/90 H Pulse Oximetry 98 98 Oxygen Delivery 02/15/25 12:10 02/15/25 13:05 02/15/25 14:00 Temperature 98.3 F 98.6 F 98.7 F Pulse Rate 117 H 118 H 120 H Respiratory Rate 20 20 22 H Blood Pressure 164/94 H 166/98 H 166/92 H Pulse Oximetry 98 99 99 Oxygen Delivery 02/15/25 16:03 02/15/25 20:00 02/15/25 20:40 Temperature Pulse Rate 127 H 129 H Respiratory Rate Blood Pressure Pulse Oximetry Oxygen Delivery Room Air 02/15/25 21:25 02/16/25 00:00 02/16/25 04:00 Temperature 98.6 F Pulse Rate 130 H 126 H 120 H Respiratory Rate 18 Blood Pressure 154/82 H Pulse Oximetry 94 Oxygen Delivery 02/16/25 05:38 Temperature 98.8 F Pulse Rate 126 H Respiratory Rate 18 Blood Pressure 149/77 H Pulse Oximetry 96 Oxygen Delivery Intake/Output Intake/Output: Intake & Output 02/13/25 02/14/25 02/15/25 02/16/25 23:59 23:59 23:59 23:59 Intake Total 500 1650 240 Output Total 2825 400 300 Balance -2325 1250 -60 Meds/Results Medications: Active Medications Generic Name Dose Route Start Last Admin Trade Name Freq PRN Reason Stop Dose Admin Hydrocodone Bitart/Acetaminophen 1 tab 02/15/25 23:14 Hydrocodone/Acetaminophen (*Crx) 5-325 Mg Tablet PO Q4H PRN Pain Rated 4-6 Amlodipine Besylate 5 mg 02/15/25 11:40 02/15/25 12:09 Amlodipine Besylate 5 Mg Tablet PO 5 mg DAILY GARRETT Administration Bisacodyl 5 mg 02/14/25 20:42 Bisacodyl 5 Mg Tablet Ec PO DAILY PRN constipation Furosemide 40 mg 02/15/25 09:00 02/15/25 08:09 Furosemide 40 Mg Tablet PO 40 mg DAILY GARRETT Administration Gabapentin 300 mg 02/14/25 20:50 02/15/25 16:30 Gabapentin 300 Mg Capsule PO 300 mg TID GARRETT Administration Ceftriaxone Sodium 2 gm in 100 mls @ 200 mls/hr 02/15/25 18:00 02/15/25 18:25 Rocephin 2 Gm/Ns 100 Ml IVPB Infused Q24H GARRETT Infusion Doxycycline Hyclate 100 mg in 100 mls @ 100 mls/hr 02/15/25 09:00 02/15/25 22:01 Vibramycin 100 Mg/Ns 100 Ml IVPB Infused Q12H GARRETT Infusion Lactulose 10 gm 02/15/25 06:49 02/16/25 05:53 Lactulose 20 Gm/30 Ml Udc PO Not Given Q6HR GARRETT Lidocaine 2 patch 02/15/25 09:00 02/15/25 08:11 Lidocaine 5% Patch TOPICAL 2 patch DAILY GARRETT Administration Morphine Sulfate 2 mg 02/15/25 23:15 02/15/25 23:21 Morphine Sulfate (*Crx) 2 Mg/Ml Inj IV PUSH 2 mg Q6H PRN Administration Pain Rated 7-10 Multivitamins/Calcium 1 tablet 02/15/25 09:00 02/15/25 08:10 Therapeutic Multivitamins/Minerals Tab (*Bkc) PO 1 tablet DAILY GARRETT Administration Pantoprazole Sodium 40 mg 02/15/25 09:00 02/15/25 08:09 Pantoprazole 40 Mg Tablet PO 40 mg QAM GARRETT Administration Rifaximin 550 mg 02/15/25 09:00 02/15/25 16:30 Rifaximin 550 Mg Tablet PO 550 mg BID GARRETT Administration Spironolactone 100 mg 02/15/25 09:00 02/15/25 08:09 Spironolactone 50 Mg Tablet PO 100 mg QAM GARRETT Administration Thiamine HCl 100 mg 02/15/25 09:00 02/15/25 08:10 Thiamine Hcl 100 Mg Tablet PO 100 mg DAILY GARRETT Administration Radiology Results: ITS Impressions Chest X-Ray 02/14/25 14:29 Impression: 1: Left basilar consolidation may represent atelectasis or pneumonia. 2: Small left pleural effusion. Venous Doppler Study 02/14/25 15:04 IMPRESSION: 1: No lower extremity deep venous thrombosis. Abdomen/Pelvis CT 02/14/25 15:11 IMPRESSION: 1. Gross ascites. 2. Possible liver cirrhosis. Clinical evaluation and follow-up advised. 3. 2 nodules in the right lung base PET CT scan and further evaluation advised. 4. Left pleural effusion with adjacent atelectasis versus pneumonia. Minimal right pleural effusion. 5. Cholelithiasis. 6. Edema in the subcutaneous tissues with fluid collections. 7. Possible enteritis of the small bowel with thickening of the wall. 8. Soft tissue density in the rectum with thickened wall. Clinical evaluation advised. Paracentesis Ultrasound 02/14/25 17:42 IMPRESSION: 1. Successful ultrasound-guided paracentesis yielding 3700 mL of cloudy yellow fluid. Labs Labs: Laboratory Results - last 24 hr 02/15/25 02/15/25 02/15/25 06:08 07:30 11:37 Sodium Potassium Chloride Carbon Dioxide Anion Gap BUN Creatinine Estim Creat Clear Calc Estimated GFR Glucose POC Capillary Glucose Calcium Magnesium Iron 35 L TIBC 126 L % Saturation 28 Ferritin 292.00 H Total Bilirubin AST ALT Alkaline Phosphatase Ammonia Total Protein Albumin Stl Occult Blood (IFOB) Negative Blood Type O Positive Antibody Screen Negative Crossmatch See Detail 02/15/25 02/15/25 02/15/25 11:45 17:06 20:15 Sodium Potassium Chloride Carbon Dioxide Anion Gap BUN Creatinine Estim Creat Clear Calc Estimated GFR Glucose POC Capillary Glucose 154 H 164 H 172 H Calcium Magnesium Iron TIBC % Saturation Ferritin Total Bilirubin AST ALT Alkaline Phosphatase Ammonia Total Protein Albumin Stl Occult Blood (IFOB) Blood Type Antibody Screen Crossmatch 02/16/25 02/16/25 07:40 08:13 Sodium 142 Potassium 4.4 Chloride 109 H Carbon Dioxide 23 Anion Gap 10 BUN 14 Creatinine 0.80 Estim Creat Clear Calc 64 Estimated GFR > 60 Glucose 204 H POC Capillary Glucose 204 H Calcium 9.2 Magnesium 1.5 L Iron TIBC % Saturation Ferritin Total Bilirubin 1.3 AST 52 H ALT 20 Alkaline Phosphatase 201 H Ammonia 30 Total Protein 6.0 L Albumin 3.1 L Stl Occult Blood (IFOB) Blood Type Antibody Screen Crossmatch
[2025-02-16 09:37] LABS: Lactic Acid Reflex 2.2 mmol/L (0.7-2.0)
[2025-02-16] MEDS: HYDROcodone/acetaminophen (*CRX) 5-325 MG TABLET 1 TAB PO ×2 (10:03→20:32)
[2025-02-16 11:25] LABS: Reflex Lactic Acid Yes or No Add Lactic
[2025-02-16 11:33] LABS: Glucose Point of Care 167 mg/dl (65-105)
[2025-02-16 11:51] LABS: Lactic Acid 1.8 mmol/L (0.7-2.0)
--- NOTE | 2025-02-16 14:53 | P.PNGI_ITS ---
Progress Note: A&P Assessment and Plan (1) Alcoholic cirrhosis of liver with ascites: Code(s): K70.31 - Alcoholic cirrhosis of liver with ascites Status: Acute Assessment and Plan: An order was placed in our system to see the patient after discharge, in approximately 1 or 2 weeks for the management of her current problem, mainly ascites, peripheral edema and management of diuretics. Her diuretic should c ontinue unchanged until seen in our clinic. A dietitian consultation prior to discharge is advised to elaborate a low sodium diet. An order was also placed for CBC and complete metabolic profile prior to his visit. If her white count continues to trend down, she can be discharged tomorrow on antibiotics for her pneumonia as stated in this morning's progress note. Subjective Date/time seen: 02/16/25 14:53 Objective Data Vital Signs Vital Signs: Vital Signs - 24 hr 02/15/25 16:03 02/15/25 20:00 02/15/25 20:40 Temperature Pulse Rate 127 H 129 H Respiratory Rate Blood Pressure Pulse Oximetry Oxygen Delivery Room Air 02/15/25 21:25 02/16/25 00:00 02/16/25 04:00 Temperature 98.6 F Pulse Rate 130 H 126 H 120 H Respiratory Rate 18 Blood Pressure 154/82 H Pulse Oximetry 94 Oxygen Delivery 02/16/25 05:38 02/16/25 08:00 02/16/25 08:38 Temperature 98.8 F Pulse Rate 126 H 119 H Respiratory Rate 18 18 Blood Pressure 149/77 H Pulse Oximetry 96 96 Oxygen Delivery Room Air 02/16/25 12:28 02/16/25 14:00 Temperature 99.3 F Pulse Rate 119 H 120 H Respiratory Rate 18 Blood Pressure 132/74 Pulse Oximetry 99 Oxygen Delivery Intake/Output Intake/Output: Intake & Output 02/13/25 02/14/25 02/15/25 02/16/25 23:59 23:59 23:59 23:59 Intake Total 500 1650 460 Output Total 2825 400 300 Balance -2325 1250 160 Meds/Results Medications: Active Medications Generic Name Dose Route Start Last Admin Trade Name Freq PRN Reason Stop Dose Admin Hydrocodone Bitart/Acetaminophen 1 tab 02/15/25 23:14 02/16/25 10:03 Hydrocodone/Acetaminophen (*Crx) 5-325 Mg Tablet PO 1 tab Q4H PRN Administration Pain Rated 4-6 Amlodipine Besylate 5 mg 02/15/25 11:40 02/16/25 08:37 Amlodipine Besylate 5 Mg Tablet PO 5 mg DAILY [facility] Administration Bisacodyl 5 mg 02/14/25 20:42 Bisacodyl 5 Mg Tablet Ec PO DAILY PRN constipation Furosemide 40 mg 02/15/25 09:00 02/16/25 08:37 Furosemide 40 Mg Tablet PO 40 mg DAILY [facility] Administration Gabapentin 300 mg 02/14/25 20:50 02/16/25 12:40 Gabapentin 300 Mg Capsule PO 300 mg TID G[facility] Administration Ceftriaxone Sodium 2 gm in 100 mls @ 200 mls/hr 02/15/25 18:00 02/15/25 18:25 Rocephin 2 Gm/Ns 100 Ml IVPB Infused Q24H [facility] Infusion Doxycycline Hyclate 100 mg in 100 mls @ 100 mls/hr 02/15/25 09:00 02/16/25 09:37 Vibramycin 100 Mg/Ns 100 Ml IVPB Infused Q12H [facility] Infusion Lactulose 10 gm 02/15/25 06:49 02/16/25 11:39 Lactulose 20 Gm/30 Ml Udc PO Not Given Q6HR [facility] Lidocaine 2 patch 02/15/25 09:00 02/16/25 08:36 Lidocaine 5% Patch TOPICAL 2 patch DAILY [facility] Administration Morphine Sulfate 2 mg 02/15/25 23:15 02/15/25 23:21 Morphine Sulfate (*Crx) 2 Mg/Ml Inj IV PUSH 2 mg Q6H PRN Administration Pain Rated 7-10 Multivitamins/Calcium 1 tablet 02/15/25 09:00 02/16/25 08:37 Therapeutic Multivitamins/Minerals Tab (*Bkc) PO 1 tablet DAILY [facility] Administration Pantoprazole Sodium 40 mg 02/15/25 09:00 02/16/25 08:36 Pantoprazole 40 Mg Tablet PO 40 mg QAM [facility] Administration Rifaximin 550 mg 02/15/25 09:00 02/16/25 08:36 Rifaximin 550 Mg Tablet PO 550 mg BID [facility] Administration Spironolactone 100 mg 02/15/25 09:00 02/16/25 08:36 Spironolactone 50 Mg Tablet PO 100 mg QAM [facility] Administration Thiamine HCl 100 mg 02/15/25 09:00 02/16/25 08:36 Thiamine Hcl 100 Mg Tablet PO 100 mg DAILY [facility] Administration Radiology Results: ITS Impressions Chest X-Ray 02/14/25 14:29 Impression: 1: Left basilar consolidation may represent atelectasis or pneumonia. 2: Small left pleural effusion. Venous Doppler Study 02/14/25 15:04 IMPRESSION: 1: No lower extremity deep venous thrombosis. Abdomen/Pelvis CT 02/14/25 15:11 IMPRESSION: 1. Gross ascites. 2. Possible liver cirrhosis. Clinical evaluation and follow-up advised. 3. 2 nodules in the right lung base PET CT scan and further evaluation advised. 4. Left pleural effusion with adjacent atelectasis versus pneumonia. Minimal right pleural effusion. 5. Cholelithiasis. 6. Edema in the subcutaneous tissues with fluid collections. 7. Possible enteritis of the small bowel with thickening of the wall. 8. Soft tissue density in the rectum with thickened wall. Clinical evaluation advised. Paracentesis Ultrasound 02/14/25 17:42 IMPRESSION: 1. Successful ultrasound-guided paracentesis yielding 3700 mL of cloudy yellow fluid. Labs Labs: Laboratory Results - last 24 hr 02/15/25 02/15/25 02/15/25 07:30 17:06 20:15 WBC RBC Hgb Hct MCV MCH MCHC RDW Plt Count MPV Immature Gran % (Auto) Neut % (Auto) Lymph % (Auto) [place] % (Auto) Eos % (Auto) Baso % (Auto) Lymph # (Auto) [place] # (Auto) Eos # (Auto) Baso # (Auto) Abs Immat Gran (auto) Absolute Neuts (auto) Absolute Nucleated RBC Nucleated RBC % Sodium Potassium Chloride Carbon Dioxide Anion Gap BUN Creatinine Estim Creat Clear Calc Estimated GFR Glucose POC Capillary Glucose 164 H 172 H Lactic Acid Calcium Magnesium Total Bilirubin AST ALT Alkaline Phosphatase Ammonia Total Protein Albumin Blood Type O Positive Antibody Screen Negative Crossmatch See Detail 02/16/25 02/16/25 02/16/25 07:40 08:13 09:16 WBC 22.7 H RBC 3.06 L Hgb 8.7 L Hct 28.0 L MCV 91.5 MCH 28.4 MCHC 31.1 L RDW 20.0 H Plt Count 317 MPV 12.0 H Immature Gran % (Auto) 0.9 H Neut % (Auto) 79.3 H Lymph % (Auto) 10.0 L [place] % (Auto) 7.7 Eos % (Auto) 1.7 Baso % (Auto) 0.4 Lymph # (Auto) 2.26 [place] # (Auto) 1.8 H Eos # (Auto) 0.4 H Baso # (Auto) 0.1 Abs Immat Gran (auto) 0.21 H Absolute Neuts (auto) 18.0 H Absolute Nucleated RBC 0.000 Nucleated RBC % 0.0 Sodium 142 Potassium 4.4 Chloride 109 H Carbon Dioxide 23 Anion Gap 10 BUN 14 Creatinine 0.80 Estim Creat Clear Calc 64 Estimated GFR > 60 Glucose 204 H POC Capillary Glucose 204 H Lactic Acid 2.2 H Calcium 9.2 Magnesium 1.5 L Total Bilirubin 1.3 AST 52 H ALT 20 Alkaline Phosphatase 201 H Ammonia 30 Total Protein 6.0 L Albumin 3.1 L Blood Type Antibody Screen Crossmatch 02/16/25 02/16/25 11:28 11:37 WBC RBC Hgb Hct MCV MCH MCHC RDW Plt Count MPV Immature Gran % (Auto) Neut % (Auto) Lymph % (Auto) [place] % (Auto) Eos % (Auto) Baso % (Auto) Lymph # (Auto) [place] # (Auto) Eos # (Auto) Baso # (Auto) Abs Immat Gran (auto) Absolute Neuts (auto) Absolute Nucleated RBC Nucleated RBC % Sodium Potassium Chloride Carbon Dioxide Anion Gap BUN Creatinine Estim Creat Clear Calc Estimated GFR Glucose POC Capillary Glucose 167 H Lactic Acid 1.8 Calcium Magnesium Total Bilirubin AST ALT Alkaline Phosphatase Ammonia Total Protein Albumin Blood Type Antibody Screen Crossmatch
[2025-02-16] MEDS: cefTRIAXone 2 GM/NS 100 ML 2 GM/100 ML BAG IVPB (17:20)
[2025-02-16 17:25] LABS: Glucose Point of Care 156 mg/dl (65-105)
--- NOTE | 2025-02-16 18:04 | P.PNIM_ITS ---
Progress Note: A&P Assessment and Plan (1) Sepsis: Qualifiers: Sepsis type: sepsis due to unspecified organism Sepsis acute organ dysfunction status: with acute organ dysfunction Severe sepsis acute organ dysfunction type: encephalopathy Severe sepsis shock status: without septic shock Qualified Code(s): A41.9 - Sepsis, unspecified organism; R65.20 - Severe sepsis without septic shock; G93.41 - Metabolic encephalopathy Code(s): A41.9 - Sepsis, unspecified organism Status: Acute Assessment and Plan: likely from [place] Chest reviewed F/u cultures, Contineu rocephin and Doxycycline monitor (2) SBP (spontaneous bacterial peritonitis): Code(s): K65.2 - Spontaneous bacterial peritonitis Status: Deleted Assessment and Plan: ruled out neutrophil count <250 (3) Alcoholic cirrhosis of liver with ascites: Code(s): K70.31 - Alcoholic cirrhosis of liver with ascites Status: Acute Assessment and Plan: s/p Paracentesis Continue Lasix and SPironolactone and Xifaxin monitor (4) Pneumonia: Qualifiers: Laterality: left Lung location: lower lobe of lung Pneumonia type: due to unspecified organism Qualified Code(s): J18.9 - Pneumonia, unspecified organism Code(s): J18.9 - Pneumonia, unspecified organism Status: Acute Assessment and Plan: CT chest reviewed Continue Rocephin and Doxycycline monitor (5) Hypomagnesemia: Code(s): E83.42 - Hypomagnesemia Status: Acute Assessment and Plan: replaced and monitor (6) Hypocalcemia: Code(s): E83.51 - Hypocalcemia Status: Acute Assessment and Plan: replaced and wnl (7) Anemia of chronic disease: Code(s): D63.8 - Anemia in other chronic diseases classified elsewhere Status: Acute Assessment and Plan: Hb 8.7 Isat 28, b12 840 and Folic acid 8.4 transfuse 1 unit pRBC monitor (8) Hypokalemia: Code(s): E87.6 - Hypokalemia Status: Acute Assessment and Plan: K 4.3 monitor (9) Hepatic encephalopathy: Code(s): K76.82 - Hepatic encephalopathy Status: Acute Assessment and Plan: NH3 30 On lactulose monitor mental status much improved (10) Sinus tachycardia: Code(s): R00.0 - Tachycardia, unspecified Status: Acute Assessment and Plan: Due to sepsis and or could be some component of anemia. The patient's baseline hemoglobin is unknown. Will continue albumin supplementation. Will repeat CBC in a.m.. Will monitor rhythm on telemetry. Plan Hypertension BP 132/74 On Amlodipine 5mg continue Lasix and Spironolactone monitor Alcohol abuse daughter noted that patient has hx of heavy alcohol use On Thiamine Hypomagnesemia Mg 1.5 replaced and monitor Anemia Hb 8.7, isat 28 monitor DVT prophylaxis on Sq Lovenox FOBT negative Subjective Date/time seen: 02/16/25 18:04 Interval history: Comfortable at bedside Review of Systems Review of Systems: ROS unobtainable: Yes unobtainable due to mental status Exam Narrative: Weight 75.5 kg BMI 26.6 Const: Other: Chronically ill-appearing, appears much older than stated age, no acute distress HENMT: Other: Mucous membranes are tacky, dentures in place with significant plaquing to the dentures Eyes: Other: Marked conjunctival pallor, no scleral icterus, pupils are equal and reactive Neck: Other: No JVD, no lymphadenopathy Resp: Other: Clear to auscultation bilaterally, no increased work of breathing Cardio: Other: Sinus tachycardia, 2+ bilateral radial pedal pulses, no JVD no murmur GI: Other: Distended, soft, nontender, normoactive bowel sounds : Other: Pure wick catheter in place incontinent of urine, urine in suction canister is dark yellow and turbid Skin: Other: Normal temperature to touch, non jaundice, 3-4 second cap refill, chronic venous stasis changes to bilateral lower extremities left greater than right tattoo noted circling the left ankle, skin legs warm to touch bilaterally, the patient has maceration of skin to the buttocks Neuro: Other: The patient opens her eyes and looks at staff when her name is called, she does not verbalize her name and further orientation questions are not able to be performed, the patient will squeeze examiner's hands with prompting, she will stick her tongue out, she is only intermittently following commands her area responses are delayed and slowed, sensation seem to be intact is the patient does withdrawal from painful stimuli Extrem: Other: Bilateral lower extremity edema left may be slightly worse than right 1 to 2+ in nature extending up the calves into the thighs, abdomen also has some edema consistent with anasarca Psych: Other: Encephalopathic, calm Objective Data Vital Signs Vital Signs: Vital Signs - 24 hr 02/15/25 20:00 02/15/25 20:40 02/15/25 21:25 Temperature 98.6 F Pulse Rate 129 H 130 H Respiratory Rate 18 Blood Pressure 154/82 H Pulse Oximetry 94 Oxygen Delivery Room Air 02/16/25 00:00 02/16/25 04:00 02/16/25 05:38 Temperature 98.8 F Pulse Rate 126 H 120 H 126 H Respiratory Rate 18 Blood Pressure 149/77 H Pulse Oximetry 96 Oxygen Delivery 02/16/25 08:00 02/16/25 08:38 02/16/25 12:28 Temperature Pulse Rate 119 H 119 H Respiratory Rate 18 Blood Pressure Pulse Oximetry 96 Oxygen Delivery Room Air 02/16/25 14:00 02/16/25 16:02 Temperature 99.3 F Pulse Rate 120 H 120 H Respiratory Rate 18 Blood Pressure 132/74 Pulse Oximetry 99 Oxygen Delivery Intake/Output Intake/Output: Intake & Output 02/13/25 02/14/25 02/15/25 02/16/25 23:59 23:59 23:59 23:59 Intake Total 500 1650 893.3 Output Total 2825 400 300 Balance -2325 1250 593.3 Meds/Results Medications: Active Medications Generic Name Dose Route Start Last Admin Trade Name Freq PRN Reason Stop Dose Admin Hydrocodone Bitart/Acetaminophen 1 tab 02/15/25 23:14 02/16/25 10:03 Hydrocodone/Acetaminophen (*Crx) 5-325 Mg Tablet PO 1 tab Q4H PRN Administration Pain Rated 4-6 Amlodipine Besylate 5 mg 02/15/25 11:40 02/16/25 08:37 Amlodipine Besylate 5 Mg Tablet PO 5 mg DAILY [facility] Administration Bisacodyl 5 mg 02/14/25 20:42 Bisacodyl 5 Mg Tablet Ec PO DAILY PRN constipation Furosemide 40 mg 02/15/25 09:00 02/16/25 08:37 Furosemide 40 Mg Tablet PO 40 mg DAILY [facility] Administration Gabapentin 300 mg 02/14/25 20:50 02/16/25 16:39 Gabapentin 300 Mg Capsule PO 300 mg TID [facility] Administration Ceftriaxone Sodium 2 gm in 100 mls @ 200 mls/hr 02/15/25 18:00 02/16/25 17:30 Rocephin 2 Gm/Ns 100 Ml IVPB 100 mls/hr Q24H [facility] Infusion Doxycycline Hyclate 100 mg in 100 mls @ 100 mls/hr 02/15/25 09:00 02/16/25 09:37 Vibramycin 100 Mg/Ns 100 Ml IVPB Infused Q12H [facility] Infusion Magnesium Sulfate/Dextrose 3 gm in 100 mls @ 33.333 mls/hr 02/16/25 17:54 Magnesium Sulfate 3gm/[id number] IVPB 02/16/25 20:53 ONCE ONE Lactulose 10 gm 02/15/25 06:49 02/16/25 17:19 Lactulose 20 Gm/30 Ml Udc PO Not Given Q6HR [facility] Lidocaine 2 patch 02/15/25 09:00 02/16/25 08:36 Lidocaine 5% Patch TOPICAL 2 patch DAILY [facility] Administration Morphine Sulfate 2 mg 02/15/25 23:15 02/15/25 23:21 Morphine Sulfate (*Crx) 2 Mg/Ml Inj IV PUSH 2 mg Q6H PRN Administration Pain Rated 7-10 Multivitamins/Calcium 1 tablet 02/15/25 09:00 02/16/25 08:37 Therapeutic Multivitamins/Minerals Tab (*Bkc) PO 1 tablet DAILY [facility] Administration Pantoprazole Sodium 40 mg 02/15/25 09:00 02/16/25 08:36 Pantoprazole 40 Mg Tablet PO 40 mg QAM [facility]RETT Administration Rifaximin 550 mg 02/15/25 09:00 02/16/25 16:39 Rifaximin 550 Mg Tablet PO 550 mg BID GARRETT Administration Spironolactone 100 mg 02/15/25 09:00 02/16/25 08:36 Spironolactone 50 Mg Tablet PO 100 mg QAM [facility]RETT Administration Thiamine HCl 100 mg 02/15/25 09:00 02/16/25 08:36 Thiamine Hcl 100 Mg Tablet PO 100 mg DAILY [facility] Administration Radiology Results: ITS Impressions Chest X-Ray 02/14/25 14:29 Impression: 1: Left basilar consolidation may represent atelectasis or pneumonia. 2: Small left pleural effusion. Venous Doppler Study 02/14/25 15:04 IMPRESSION: 1: No lower extremity deep venous thrombosis. Abdomen/Pelvis CT 02/14/25 15:11 IMPRESSION: 1. Gross ascites. 2. Possible liver cirrhosis. Clinical evaluation and follow-up advised. 3. 2 nodules in the right lung base PET CT scan and further evaluation advised. 4. Left pleural effusion with adjacent atelectasis versus pneumonia. Minimal right pleural effusion. 5. Cholelithiasis. 6. Edema in the subcutaneous tissues with fluid collections. 7. Possible enteritis of the small bowel with thickening of the wall. 8. Soft tissue density in the rectum with thickened wall. Clinical evaluation advised. Paracentesis Ultrasound 02/14/25 17:42 IMPRESSION: 1. Successful ultrasound-guided paracentesis yielding 3700 mL of cloudy yellow fluid. Labs Labs: Laboratory Results - last 24 hr 02/15/25 02/16/25 02/16/25 20:15 07:40 08:13 WBC 22.7 H RBC 3.06 L Hgb 8.7 L Hct 28.0 L MCV 91.5 MCH 28.4 MCHC 31.1 L RDW 20.0 H Plt Count 317 MPV 12.0 H Immature Gran % (Auto) 0.9 H Neut % (Auto) 79.3 H Lymph % (Auto) 10.0 L [place] % (Auto) 7.7 Eos % (Auto) 1.7 Baso % (Auto) 0.4 Lymph # (Auto) 2.26 [place] # (Auto) 1.8 H Eos # (Auto) 0.4 H Baso # (Auto) 0.1 Abs Immat Gran (auto) 0.21 H Absolute Neuts (auto) 18.0 H Absolute Nucleated RBC 0.000 Nucleated RBC % 0.0 Sodium 142 Potassium 4.4 Chloride 109 H Carbon Dioxide 23 Anion Gap 10 BUN 14 Creatinine 0.80 Estim Creat Clear Calc 64 Estimated GFR > 60 Glucose 204 H POC Capillary Glucose 172 H 204 H Lactic Acid Calcium 9.2 Magnesium 1.5 L Total Bilirubin 1.3 AST 52 H ALT 20 Alkaline Phosphatase 201 H Ammonia 30 Total Protein 6.0 L Albumin 3.1 L 02/16/25 02/16/25 02/16/25 09:16 11:28 11:37 WBC RBC Hgb Hct MCV MCH MCHC RDW Plt Count MPV Immature Gran % (Auto) Neut % (Auto) Lymph % (Auto) [place] % (Auto) Eos % (Auto) Baso % (Auto) Lymph # (Auto) [place] # (Auto) Eos # (Auto) Baso # (Auto) Abs Immat Gran (auto) Absolute Neuts (auto) Absolute Nucleated RBC Nucleated RBC % Sodium Potassium Chloride Carbon Dioxide Anion Gap BUN Creatinine Estim Creat Clear Calc Estimated GFR Glucose POC Capillary Glucose 167 H Lactic Acid 2.2 H 1.8 Calcium Magnesium Total Bilirubin AST ALT Alkaline Phosphatase Ammonia Total Protein Albumin 02/16/25 17:20 WBC RBC Hgb Hct MCV MCH MCHC RDW Plt Count MPV Immature Gran % (Auto) Neut % (Auto) Lymph % (Auto) [place] % (Auto) Eos % (Auto) Baso % (Auto) Lymph # (Auto) [place] # (Auto) Eos # (Auto) Baso # (Auto) Abs Immat Gran (auto) Absolute Neuts (auto) Absolute Nucleated RBC Nucleated RBC % Sodium Potassium Chloride Carbon Dioxide Anion Gap BUN Creatinine Estim Creat Clear Calc Estimated GFR Glucose POC Capillary Glucose 156 H Lactic Acid Calcium Magnesium Total Bilirubin AST ALT Alkaline Phosphatase Ammonia Total Protein Albumin Quality VTE Prophylaxis VTE prophylaxis: mechanical ordered (SCDs)
[2025-02-16] MEDS: THIAMINE HCL 200 MG/2 ML VIAL 100 MG IV PUSH (18:29)
[2025-02-16] MEDS: MAGNESIUM SULF 2 GM/WATER 50ML 2 GM/50 ML BAG IVPB (18:30)
[2025-02-16 21:01] LABS: Glucose Point of Care 190 mg/dl (65-105)
[2025-02-17] VITALS (9 sets, daily range): BP systolic 141–150; BP diastolic 84–92; PULSE 108–117; RESP 18; TEMP 36.9–37.2; O2SAT 94–99
[2025-02-17 05:16] LABS: Basophils Absolute Auto 0.1 K/mm3 (0.0-0.1); Basophils Percent Auto 0.4 % (0.2-1.2); Eosinophils Absolute Auto 0.5 K/mm3 (0-0.3); Eosinophils Percent Auto 2.6 % (0-4.4); Hematocrit 28.2 % (37.0-47.0); Hemoglobin 8.7 g/dL (12.0-15.0); Immature Granulocyte Absolute 0.15 K/mm3 (0.00-0.031); Immature Granulocyte Percent A 0.7 % (0-0.5); Lymphocytes Absolute Auto 2.36 K/mm3 (0.9-3.2); Lymphocytes Percent Auto 11.5 % (18.3-44.2); Mean Corpuscular HGB Conc 30.9 g/dl (32-36); Mean Corpuscular Hemoglobin 28.4 pg (26-34); Mean Corpuscular Volume 92.2 fl (80-100); Mean Platelet Volume 11.8 fl (7.4-10.4); Monocytes Absolute Auto 1.5 K/mm3 (0.1-0.6); Monocytes Percent Auto 7.1 % (2.6-8.5); Neutrophils Percent Auto 77.7 % (45.5-73.1); Platelet Count Result 321 k/mm3 (150-375); Red Blood Count 3.06 M/mm3 (4.2-5.4); Red Cell Distribution Width 20.4 % (11.5-14.5); White Blood Count 20.6 K/mm3 (4.5-10.0)
[2025-02-17 05:26] LABS: Ammonia < 9 umol/L (9-30)
[2025-02-17 05:30] LABS: Alanine Aminotransferase 18 U/L (6-35); Albumin Level 2.8 g/dL (3.5-5.1); Alkaline Phosphatase 194 U/L (38-126); Anion Gap 6 mmol/L (4-12); Aspartate Amino Transferase 51 U/L (14-36); Blood Urea Nitrogen 18 mg/dL (7-17); Calcium 9.2 mg/dL (8.4-10.2); Carbon Dioxide 27 mmol/L (22-30); Chloride 106 mmol/L (98-107); Estimated CRCL calculation 71 ml/min; Estimated Glomerular Filt Rate > 60; Glucose 181 mg/dL (65-110); Magnesium 1.6 mg/dL (1.6-2.3); Potassium 4.2 mmol/L (3.4-5.0); Sodium 139 mmol/L (137-145)
--- NOTE | 2025-02-17 08:00 | ECG_ITS ---
Test Date: 2025-02-17 08:11:51 Measurements Intervals [place] Rate: 107 P: 25 IN: 141 QRS: -20 QRSD: 72 T: 28 QT: 345 QTc: 461 Interpretive Statements SINUS TACHYCARDIA POSSIBLE LEFT ATRIAL ENLARGEMENT [-0.1mV P-WAVE IN V1/V2] LOW QRS VOLTAGE IN EXTREMITY LEADS [QRS DEFLECTION < 0.5 mV IN LIMB LEADS] SEPTAL MYOCARDIAL INFARCTION , OF INDETERMINATE AGE [40+ ms Q WAVE IN V1/V2] Compared to ECG 02/14/2025 23:35:18 No significant changes Electronically Signed On 02-17-2025 15:06:35 CDT by Oly Valle M.D.
[2025-02-17 08:19] LABS: Glucose Point of Care 126 mg/dl (65-105)
[2025-02-17] MEDS: amLODIPine BESYLATE 5 MG TABLET PO (09:22)
[2025-02-17] MEDS: SPIRONOLACTONE 50 MG TABLET 100 MG PO (09:23)
[2025-02-17] MEDS: rifAXIMin 550 MG TABLET PO ×2 (09:23→17:44)
[2025-02-17] MEDS: THERAPEUTIC MULTIVITAMINS/MINERALS TAB (*BKC) 1 TABLET PO (09:23)
[2025-02-17] MEDS: THIAMINE HCL 100 MG TABLET PO ×2 (09:23→09:50)
[2025-02-17] MEDS: PANTOPRAZOLE 40 MG TABLET PO (09:23)
[2025-02-17] MEDS: FUROSEMIDE 40 MG TABLET PO (09:23)
[2025-02-17] MEDS: GABAPENTIN 300 MG CAPSULE PO ×3 (09:23→17:44)
[2025-02-17] MEDS: DOXYCYCLINE 100 MG/NS 100 ML 100 MG/100 ML BAG IVPB ×2 (09:25→21:00)
[2025-02-17] MEDS: LIDOCAINE 5% PATCH 2 PATCH TOPICAL (09:30)
--- NOTE | 2025-02-17 10:38 | P.PNIM_ITS ---
Progress Note: A&P Assessment and Plan (1) Sepsis: Qualifiers: Sepsis type: sepsis due to unspecified organism Sepsis acute organ dysfunction status: with acute organ dysfunction Severe sepsis acute organ dysfunction type: encephalopathy Severe sepsis shock status: without septic shock Qualified Code(s): A41.9 - Sepsis, unspecified organism; R65.20 - Severe sepsis without septic shock; G93.41 - Metabolic encephalopathy Code(s): A41.9 - Sepsis, unspecified organism Status: Acute Assessment and Plan: likely from [facility] CT Chest reviewed F/u cultures, Contineu rocephin and Doxycycline monitor (2) SBP (spontaneous bacterial peritonitis): Code(s): K65.2 - Spontaneous bacterial peritonitis Status: Deleted Assessment and Plan: ruled out neutrophil count <250 (3) Alcoholic cirrhosis of liver with ascites: Code(s): K70.31 - Alcoholic cirrhosis of liver with ascites Status: Acute Assessment and Plan: s/p Paracentesis Continue Lasix and SPironolactone and Xifaxin monitor (4) Pneumonia: Qualifiers: Laterality: left Lung location: lower lobe of lung Pneumonia type: due to unspecified organism Qualified Code(s): J18.9 - Pneumonia, unspecified organism Code(s): J18.9 - Pneumonia, unspecified organism Status: Acute Assessment and Plan: CT chest reviewed Continue Rocephin and Doxycycline monitor (5) Hypomagnesemia: Code(s): E83.42 - Hypomagnesemia Status: Acute Assessment and Plan: replaced and monitor (6) Hypocalcemia: Code(s): E83.51 - Hypocalcemia Status: Acute Assessment and Plan: replaced and wnl (7) Anemia of chronic disease: Code(s): D63.8 - Anemia in other chronic diseases classified elsewhere Status: Acute Assessment and Plan: Hb 8.7 Isat 28, b12 840 and Folic acid 8.4 transfuse 1 unit pRBC monitor (8) Hypokalemia: Code(s): E87.6 - Hypokalemia Status: Acute Assessment and Plan: K 4.3 monitor (9) Hepatic encephalopathy: Code(s): K76.82 - Hepatic encephalopathy Status: Acute Assessment and Plan: NH3 30 On lactulose monitor mental status resolved (10) Sinus tachycardia: Code(s): R00.0 - Tachycardia, unspecified Status: Acute Assessment and Plan: Persistent tachycardia CTA chest ordered lactic acid pending Plan Hypertension BP 132/74 On Amlodipine 5mg continue Lasix and Spironolactone monitor Alcohol abuse daughter noted that patient has hx of heavy alcohol use On Thiamine Hypomagnesemia Mg 1.6 replaced and monitor Anemia Hb 8.7, isat 28 monitor DVT prophylaxis on Sq Lovenox FOBT negative Subjective Date/time seen: 02/17/25 10:38 Interval history: Comfortable at bedside Review of Systems Review of Systems: ROS unobtainable: Yes unobtainable due to mental status Exam Narrative: Weight 75.5 kg BMI 26.6 Const: Other: Chronically ill-appearing, appears much older than stated age, no acute distress HENMT: Other: Mucous membranes are tacky, dentures in place with significant plaquing to the dentures Eyes: Other: Marked conjunctival pallor, no scleral icterus, pupils are equal and reactive Neck: Other: No JVD, no lymphadenopathy Resp: Other: Clear to auscultation bilaterally, no increased work of breathing Cardio: Other: Sinus tachycardia, 2+ bilateral radial pedal pulses, no JVD no murmur GI: Other: Distended, soft, nontender, normoactive bowel sounds : Other: Pure wick catheter in place incontinent of urine, urine in suction canister is dark yellow and turbid Skin: Other: Normal temperature to touch, non jaundice, 3-4 second cap refill, chronic venous stasis changes to bilateral lower extremities left greater than right tattoo noted circling the left ankle, skin legs warm to touch bilaterally, the patient has maceration of skin to the buttocks Neuro: Other: The patient opens her eyes and looks at staff when her name is called, she does not verbalize her name and further orientation questions are not able to be performed, the patient will squeeze examiner's hands with prompting, she will stick her tongue out, she is only intermittently following commands her area responses are delayed and slowed, sensation seem to be intact is the patient does withdrawal from painful stimuli Extrem: Other: Bilateral lower extremity edema left may be slightly worse than right 1 to 2+ in nature extending up the calves into the thighs, abdomen also has some edema consistent with anasarca Psych: Other: Encephalopathic, calm Objective Data Vital Signs Vital Signs: Vital Signs - 24 hr 02/16/25 12:28 02/16/25 14:00 02/16/25 16:02 Temperature 99.3 F Pulse Rate 119 H 120 H 120 H Respiratory Rate 18 Blood Pressure 132/74 Pulse Oximetry 99 Oxygen Delivery 02/16/25 20:00 02/16/25 20:10 02/16/25 20:19 Temperature 99.9 F H Pulse Rate 115 H 114 H Respiratory Rate 18 Blood Pressure 149/95 H Pulse Oximetry 99 Oxygen Delivery Room Air 02/16/25 20:21 02/17/25 00:00 02/17/25 04:00 Temperature 98.9 F Pulse Rate 114 H 116 H Respiratory Rate Blood Pressure Pulse Oximetry Oxygen Delivery 02/17/25 05:21 Temperature 98.5 F Pulse Rate 110 H Respiratory Rate 18 Blood Pressure 141/84 H Pulse Oximetry 98 Oxygen Delivery Intake/Output Intake/Output: Intake & Output 02/14/25 02/15/25 02/16/25 02/17/25 23:59 23:59 23:59 23:59 Intake Total 500 1650 1110.0 440 Output Total 2825 400 300 Balance -2325 1250 810.0 440 Meds/Results Medications: Active Medications Generic Name Dose Route Start Last Admin Trade Name Freq PRN Reason Stop Dose Admin Hydrocodone Bitart/Acetaminophen 1 tab 02/15/25 23:14 02/16/25 20:32 Hydrocodone/Acetaminophen (*Crx) 5-325 Mg Tablet PO 1 tab Q4H PRN Administration Pain Rated 4-6 Amlodipine Besylate 5 mg 02/15/25 11:40 02/17/25 09:22 Amlodipine Besylate 5 Mg Tablet PO 5 mg DAILY GARRETT Administration Bisacodyl 5 mg 02/14/25 20:42 Bisacodyl 5 Mg Tablet Ec PO DAILY PRN constipation Furosemide 40 mg 02/15/25 09:00 02/17/25 09:23 Furosemide 40 Mg Tablet PO 40 mg DAILY GARRETT Administration Gabapentin 300 mg 02/14/25 20:50 02/17/25 09:23 Gabapentin 300 Mg Capsule PO 300 mg TID GARRETT Administration Ceftriaxone Sodium 2 gm in 100 mls @ 200 mls/hr 02/15/25 18:00 02/16/25 18:12 Rocephin 2 Gm/Ns 100 Ml IVPB Infused Q24H GARRETT Infusion Doxycycline Hyclate 100 mg in 100 mls @ 100 mls/hr 02/15/25 09:00 02/17/25 09:25 Vibramycin 100 Mg/Ns 100 Ml IVPB 100 mls/hr Q12H GARRETT Administration Lactulose 10 gm 02/15/25 06:49 02/17/25 05:43 Lactulose 20 Gm/30 Ml Udc PO Not Given Q6HR GARRETT Lidocaine 2 patch 02/15/25 09:00 02/17/25 09:30 Lidocaine 5% Patch TOPICAL 2 patch DAILY GARRETT Administration Morphine Sulfate 2 mg 02/15/25 23:15 02/15/25 23:21 Morphine Sulfate (*Crx) 2 Mg/Ml Inj IV PUSH 2 mg Q6H PRN Administration Pain Rated 7-10 Multivitamins/Calcium 1 tablet 02/15/25 09:00 02/17/25 09:23 Therapeutic Multivitamins/Minerals Tab (*Bkc) PO 1 tablet DAILY GARRETT Administration Pantoprazole Sodium 40 mg 02/15/25 09:00 02/17/25 09:23 Pantoprazole 40 Mg Tablet PO 40 mg QAM GARRETT Administration Rifaximin 550 mg 02/15/25 09:00 02/17/25 09:23 Rifaximin 550 Mg Tablet PO 550 mg BID GARRETT Administration Spironolactone 100 mg 02/15/25 09:00 02/17/25 09:23 Spironolactone 50 Mg Tablet PO 100 mg QAM GARRETT Administration Thiamine HCl 100 mg 02/15/25 09:00 02/17/25 09:23 Thiamine Hcl 100 Mg Tablet PO 100 mg DAILY GARRETT Administration Thiamine HCl 100 mg 02/17/25 09:00 02/17/25 09:50 Thiamine Hcl 100 Mg Tablet PO 100 mg QAM GARRETT Administration Radiology Results: ITS Impressions Chest X-Ray 02/14/25 14:29 Impression: 1: Left basilar consolidation may represent atelectasis or pneumonia. 2: Small left pleural effusion. Venous Doppler Study 02/14/25 15:04 IMPRESSION: 1: No lower extremity deep venous thrombosis. Abdomen/Pelvis CT 02/14/25 15:11 IMPRESSION: 1. Gross ascites. 2. Possible liver cirrhosis. Clinical evaluation and follow-up advised. 3. 2 nodules in the right lung base PET CT scan and further evaluation advised. 4. Left pleural effusion with adjacent atelectasis versus pneumonia. Minimal right pleural effusion. 5. Cholelithiasis. 6. Edema in the subcutaneous tissues with fluid collections. 7. Possible enteritis of the small bowel with thickening of the wall. 8. Soft tissue density in the rectum with thickened wall. Clinical evaluation advised. Paracentesis Ultrasound 02/14/25 17:42 IMPRESSION: 1. Successful ultrasound-guided paracentesis yielding 3700 mL of cloudy yellow fluid. Labs Labs: Laboratory Results - last 24 hr 02/16/25 02/16/25 02/16/25 11:28 11:37 17:20 WBC RBC Hgb Hct MCV MCH MCHC RDW Plt Count MPV Immature Gran % (Auto) Neut % (Auto) Lymph % (Auto) [place] % (Auto) Eos % (Auto) Baso % (Auto) Lymph # (Auto) [place] # (Auto) Eos # (Auto) Baso # (Auto) Abs Immat Gran (auto) Absolute Neuts (auto) Absolute Nucleated RBC Nucleated RBC % Sodium Potassium Chloride Carbon Dioxide Anion Gap BUN Creatinine Estim Creat Clear Calc Estimated GFR Glucose POC Capillary Glucose 167 H 156 H Lactic Acid 1.8 Calcium Magnesium Total Bilirubin AST ALT Alkaline Phosphatase Ammonia Total Protein Albumin 02/16/25 02/17/25 02/17/25 20:11 05:03 08:17 WBC 20.6 H RBC 3.06 L Hgb 8.7 L Hct 28.2 L MCV 92.2 MCH 28.4 MCHC 30.9 L RDW 20.4 H Plt Count 321 MPV 11.8 H Immature Gran % (Auto) 0.7 H Neut % (Auto) 77.7 H Lymph % (Auto) 11.5 L [place] % (Auto) 7.1 Eos % (Auto) 2.6 Baso % (Auto) 0.4 Lymph # (Auto) 2.36 [place] # (Auto) 1.5 H Eos # (Auto) 0.5 H Baso # (Auto) 0.1 Abs Immat Gran (auto) 0.15 H Absolute Neuts (auto) 16.0 H Absolute Nucleated RBC 0.000 Nucleated RBC % 0.0 Sodium 139 Potassium 4.2 Chloride 106 Carbon Dioxide 27 Anion Gap 6 BUN 18 H Creatinine 0.81 Estim Creat Clear Calc 71 Estimated GFR > 60 Glucose 181 H POC Capillary Glucose 190 H 126 H Lactic Acid Calcium 9.2 Magnesium 1.6 Total Bilirubin 1.0 AST 51 H ALT 18 Alkaline Phosphatase 194 H Ammonia < 9 L Total Protein 6.0 L Albumin 2.8 L Quality VTE Prophylaxis VTE prophylaxis: mechanical ordered (SCDs)
[2025-02-17 11:07] LABS: Lactic Acid Reflex 1.5 mmol/L (0.7-2.0)
[2025-02-17 12:41] LABS: Glucose Point of Care 147 mg/dl (65-105)
[2025-02-17] MEDS: HYDROcodone/acetaminophen (*CRX) 5-325 MG TABLET 1 TAB PO ×2 (12:42→17:51)
[2025-02-17] MEDS: LACTULOSE 20 GM/30 ML UDC 10 GM PO ×3 (12:43→23:53)
[2025-02-17 17:09] LABS: Glucose Point of Care 212 mg/dl (65-105)
[2025-02-17] MEDS: cefTRIAXone 2 GM/NS 100 ML 2 GM/100 ML BAG IVPB (17:44)
[2025-02-17 21:08] LABS: Total Protein Peritoneal Fluid <3.0 g/dL
[2025-02-17 21:25] LABS: Glucose Point of Care 193 mg/dl (65-105)
[2025-02-18] VITALS (7 sets, daily range): BP systolic 131–144; BP diastolic 79–91; PULSE 110–119; RESP 18–20; TEMP 37.1–37.2; O2SAT 97–100
[2025-02-18 04:52] LABS: Basophils Absolute Auto 0.1 K/mm3 (0.0-0.1); Basophils Percent Auto 0.5 % (0.2-1.2); Eosinophils Absolute Auto 0.5 K/mm3 (0-0.3); Eosinophils Percent Auto 2.7 % (0-4.4); Hematocrit 25.7 % (37.0-47.0); Immature Granulocyte Absolute 0.13 K/mm3 (0.00-0.031); Immature Granulocyte Percent A 0.7 % (0-0.5); Lymphocytes Absolute Auto 2.66 K/mm3 (0.9-3.2); Lymphocytes Percent Auto 14.3 % (18.3-44.2); Mean Corpuscular HGB Conc 31.1 g/dl (32-36); Mean Corpuscular Hemoglobin 28.4 pg (26-34); Mean Corpuscular Volume 91.1 fl (80-100); Mean Platelet Volume 11.7 fl (7.4-10.4); Monocytes Absolute Auto 1.8 K/mm3 (0.1-0.6); Monocytes Percent Auto 9.7 % (2.6-8.5); Neutrophils Absolute Auto 13.4 K/mm3 (1.3-6.7); Neutrophils Percent Auto 72.1 % (45.5-73.1); Platelet Count Result 290 k/mm3 (150-375); Red Blood Count 2.82 M/mm3 (4.2-5.4); Red Cell Distribution Width 19.9 % (11.5-14.5); White Blood Count 18.6 K/mm3 (4.5-10.0)
[2025-02-18 05:09] LABS: Alanine Aminotransferase 20 U/L (6-35); Albumin Level 2.5 g/dL (3.5-5.1); Alkaline Phosphatase 201 U/L (38-126); Anion Gap 5 mmol/L (4-12); Aspartate Amino Transferase 60 U/L (14-36); Bilirubin,Total 0.8 mg/dL (0.2-1.3); Blood Urea Nitrogen 19 mg/dL (7-17); Carbon Dioxide 26 mmol/L (22-30); Chloride 108 mmol/L (98-107); Estimated CRCL calculation 71 ml/min; Estimated Glomerular Filt Rate > 60; Glucose 136 mg/dL (65-110); Magnesium 1.4 mg/dL (1.6-2.3); Potassium 4.1 mmol/L (3.4-5.0); Sodium 139 mmol/L (137-145)
[2025-02-18 05:10] LABS: Lactic Acid Reflex 1.5 mmol/L (0.7-2.0)
[2025-02-18] MEDS: LACTULOSE 20 GM/30 ML UDC 10 GM PO ×2 (05:34→11:53)
[2025-02-18 07:57] LABS: Glucose Point of Care 121 mg/dl (65-105)
[2025-02-18] MEDS: GABAPENTIN 300 MG CAPSULE PO ×2 (08:52→12:23)
[2025-02-18] MEDS: SPIRONOLACTONE 50 MG TABLET 100 MG PO (08:52)
[2025-02-18] MEDS: PANTOPRAZOLE 40 MG TABLET PO (08:52)
[2025-02-18] MEDS: amLODIPine BESYLATE 5 MG TABLET PO (08:52)
[2025-02-18] MEDS: FUROSEMIDE 40 MG TABLET PO (08:52)
[2025-02-18] MEDS: LIDOCAINE 5% PATCH 2 PATCH TOPICAL (08:52)
[2025-02-18] MEDS: THERAPEUTIC MULTIVITAMINS/MINERALS TAB (*BKC) 1 TABLET PO (08:52)
[2025-02-18] MEDS: rifAXIMin 550 MG TABLET PO (08:52)
[2025-02-18] MEDS: THIAMINE HCL 100 MG TABLET PO (08:52)
[2025-02-18] MEDS: DOXYCYCLINE 100 MG/NS 100 ML 100 MG/100 ML BAG IVPB (08:53)
[2025-02-18] MEDS: MAGNESIUM SULFATE 3GM/D5W100ML 3 GM/100 ML BAG IVPB (10:07)
[2025-02-18 12:17] LABS: Glucose Point of Care 188 mg/dl (65-105)
[2025-02-18] MEDS: METOPROLOL SUCCINATE EXT REL 12.5 MG TABCR PO (13:13)
--- NOTE | 2025-02-18 13:21 | P.DS_ITS ---
DS: Admitting Diagnosis Discharge Date 02/18/25 Admitting Diagnosis Abdominal pain DS: Discharge Diagnosis Discharge Diagnosis (1) Sepsis: Qualifiers: Sepsis acute organ dysfunction status: with acute organ dysfunction Sepsis type: sepsis due to unspecified organism Severe sepsis acute organ dysfunction type: encephalopathy Severe sepsis shock status: without septic shock Qualified Code(s): A41.9 - Sepsis, unspecified organism; R65.20 - Severe sepsis without septic shock; G93.41 - Metabolic encephalopathy Code(s): A41.9 - Sepsis, unspecified organism Status: Acute (2) Ascites: Code(s): R18.8 - Other ascites Status: Acute (3) Hepatic encephalopathy: Code(s): K76.82 - Hepatic encephalopathy Status: Acute (4) Pneumonia: Qualifiers: Laterality: left Lung location: lower lobe of lung Pneumonia type: due to unspecified organism Qualified Code(s): J18.9 - Pneumonia, unspecified organism Code(s): J18.9 - Pneumonia, unspecified organism Status: Acute DS: Summary Hospital Course Hospital Course: 54-year-old female with a past medical history of alcoholic cirrhosis, polysubstance use in remission, dementia associated with alcoholism, diabetes mellitus, GERD and peripheral neuropathy among other comorbidities who presented to the ER via EMS from [facility] due to abdominal pain. [facility] staff reported that the patient had been having pain for 10 days. Also patient had been having lower extremity edema. On arrival to the ER patient was noted to have a markedly distended abdomen. Patient was evidently reporting pain for 10 days as well but at the time my evaluation the patient was only oriented to person and was not talking to me. She had only spoke 1 full sentence to the nurses. She was somnolent did not provide any history. CT of the abdomen pelvis with contrast was performed in the ER and demonstrated gross ascites with cirrhosis, left pleural effusion with associated atelectasis versus pneumonia and minimal right pleural effusion with marked subcutaneous edema. Bowel demonstrate enteritis versus edema and soft tissue density in the rectum with thickened wall. The patient is afebrile. Higher was consulted the patient underwent paracentesis with removal of 3.7 L of peritoneal fluid that was cloudy. Blood cultures were obtained and pending[place] [address] and hemoglobin was 8 INR was 1.5. Patient was given empiric antibiotic therapy for possible pneumonia and SBP. Paracentesis was done however fluid analysis negative for SBP. Patient started on Lasix and Spironolactone, continue Xifaxan. contieu lactulose and titrate to 2-3 bowel movement per Patient was managed for Pneumonia with Rocephin and Doxycycline, leukocytosis 22 and down to 18 today. discharged today on Cefdinir and Doxycyline for another 10 days. Tachycardia since admission, EKG showed ST and CTA chest negative for PE. thus patient was started on metoprolol 12.5mg and discharged on the same dose. continue other home meds and continue F/u with PCP in 3-5 days Referral to Gi in 2 week Time Spent with Patient Time attestation: Total time spent providing and/or coordinating discharge services: DS: Data Data Completed and Pending Labs on day of discharge: Labs from last 24 hours 02/18/25 02/18/25 02/18/25 11:55 07:53 04:41 WBC 18.6 H RBC 2.82 L Hgb 8.0 L Hct 25.7 L MCV 91.1 MCH 28.4 MCHC 31.1 L RDW 19.9 H Plt Count 290 MPV 11.7 H Immature Gran % (Auto) 0.7 H Neut % (Auto) 72.1 Lymph % (Auto) 14.3 L [place] % (Auto) 9.7 H Eos % (Auto) 2.7 Baso % (Auto) 0.5 Lymph # (Auto) 2.66 [place] # (Auto) 1.8 H Eos # (Auto) 0.5 H Baso # (Auto) 0.1 Abs Immat Gran (auto) 0.13 H Absolute Neuts (auto) 13.4 H Absolute Nucleated RBC 0.000 Nucleated RBC % 0.0 Sodium 139 Potassium 4.1 Chloride 108 H Carbon Dioxide 26 Anion Gap 5 BUN 19 H Creatinine 0.81 Estim Creat Clear Calc 71 Estimated GFR > 60 Glucose 136 H POC Capillary Glucose 188 H 121 H Lactic Acid 1.5 Calcium 9.0 Magnesium 1.4 L Total Bilirubin 0.8 AST 60 H ALT 20 Alkaline Phosphatase 201 H Total Protein 6.0 L Albumin 2.5 L Peritoneal Tot Protein Peritoneal Glucose 02/17/25 02/17/25 02/14/25 20:44 17:03 17:20 WBC RBC Hgb Hct MCV MCH MCHC RDW Plt Count MPV Immature Gran % (Auto) Neut % (Auto) Lymph % (Auto) [place] % (Auto) Eos % (Auto) Baso % (Auto) Lymph # (Auto) [place] # (Auto) Eos # (Auto) Baso # (Auto) Abs Immat Gran (auto) Absolute Neuts (auto) Absolute Nucleated RBC Nucleated RBC % Sodium Potassium Chloride Carbon Dioxide Anion Gap BUN Creatinine Estim Creat Clear Calc Estimated GFR Glucose POC Capillary Glucose 193 H 212 H Lactic Acid Calcium Magnesium Total Bilirubin AST ALT Alkaline Phosphatase Total Protein Albumin Peritoneal Tot Protein <3.0 Peritoneal Glucose 215 Preliminary micro results at discharge 02/14/25 17:20 Anaerobic Culture - Preliminary Ascites Fluid Aerobic Culture - Preliminary 02/14/25 18:29 Blood Culture - Preliminary Blood 02/14/25 18:22 Blood Culture - Preliminary Blood Discharge Plan Discharge Attending physician on discharge: Jaylen Brantley Consulting providers: Jose Garvin Discharging Clinician: Jaylen Brantley Anticipated Discharge Date/Time: 02/18/25 12:59 Patient Disposition: NH Senior Living/Asst Living Activity: as tolerated Diet: as tolerated Patient Instructions: Antibiotic Form Patient Language: Divehi Stand Alone Forms: General Discharge Information Follow-up/Referrals: PHYSICIAN,DIRECTOR OF DIGITAL PLATFORMS [Primary Care Provider] - (F/u with PCP in 3-5 days ) Harjinder Pitt MD [Physician] - (Referral in 2 weeks ) Discharge Medications: New cefdinir 300 mg capsule 300 mg PO Q12H 10 Days Qty: 20 0RF metoprolol tartrate 25 mg tablet 12.5 mg PO BID 30 Days Qty: 30 0RF spironolactone [Aldactone] 50 mg Tablet 100 mg PO QAM 30 Days Qty: 60 1RF amlodipine [Norvasc] 5 mg Tablet 5 mg PO DAILY 30 Days Qty: 30 1RF doxycycline hyclate 100 mg tablet 100 mg PO BID 10 Days Qty: 20 0RF Continued bisacodyl [Alophen (bisacodyl)] 5 mg tablet,delayed release (DR/EC) 5 mg PO DAILY PRN (Reason: constipation) gabapentin 300 mg capsule 300 mg PO TID lactulose [Constulose] 10 gram/15 mL solution 10 g PO BID lidocaine 5 % adhesive patch,medicated 2 patch topical DAILY pantoprazole [Protonix] [address] for susp in packet 40 mg PO DAILY Thera-M 9 mg iron-400 mcg tablet 1 tablet PO DAILY thiamine mononitrate (vit B1) [Vitamin B-1 (mononitrate)] 100 mg tablet 100 mg PO DAILY tramadol 50 mg tablet 50 mg PO Q6H PRN (Reason: pain) mesalamine [Pentasa] 500 mg capsule, extended release 1,200 mg PO DAILY Xifaxan 550 mg tablet 550 mg PO BID Changed furosemide 20 mg tablet 40 mg PO DAILY 30 Days Qty: 0 1RF Date of admission: 02/14/25 18:21 Primary Care Provider: PHYSICIAN,DIRECTOR OF [employer]MS Admitting Provider: Jaylen Brantley Attending physician on admission: Kina Anderson Condition: Stable
--- NOTE | 2025-02-18 14:10 | PC.NURSE ---
Attempted to call report to the nursing staff at [facility] without success. Message left with return telephone number.
--- NOTE | 2025-02-18 14:35 | PC.NURSE ---
Telephone report called to WES Delgadillo at [facility].
== END 2025-02-18 15:38 | DRG 720 ==
LOC: ANHED 16:24 → ANH2MED 18:05
PROVIDERS: Internal Medicine; Physician Assistant; Admitting Provider Internal Medicine; Emergency Provider Emergency Medicine; Visit Provider Nurse Practitioner Acute Care
DX: A41.9 Sepsis, unspecified organism (principal); G93.41 Metabolic encephalopathy; R65.20 Severe sepsis without septic shock; K76.82 Hepatic encephalopathy; K70.31 Alcoholic cirrhosis of liver with ascites; D63.8 Anemia in other chronic diseases classified elsewhere; F10.27 Alcohol dependence with alcohol-induced persisting dementia; J18.9 Pneumonia, unspecified organism; E83.51 Hypocalcemia; F19.90 Other psychoactive substance use, unspecified, uncomplicated; F10.20 Alcohol dependence, uncomplicated; K21.9 Gastro-esophageal reflux disease without esophagitis; E11.42 Type 2 diabetes mellitus with diabetic polyneuropathy; F41.9 Anxiety disorder, unspecified; F32.A Depression, unspecified; J43.9 Emphysema, unspecified; E83.42 Hypomagnesemia; E87.6 Hypokalemia; R00.0 Tachycardia, unspecified
CPT/HCPCS: 36415; 36430; 49083; 71045; 71275; 74177; 80053; 81001; 81025; 82140; 82274; 82607; 82728; 82746; 82945; 82948; 83540; 83550; 83605; 83690; 83735; 83880; 84145; 84157; 84484; 85025; 85610; 85730; 86140; 86850; 86900; 86901; 86923; 87040; 87070; 87075; 87205; 89051; 93005; 93970; 96365; 96366; 96367; 96368; 97161; 97166; 99285; A9270; G0378; G0379; J0456; J0612; J0696; J2270; J3411; J3475; J7050; P9016; P9047; Q9967

== ENCOUNTER 2025-08-27 15:42 | Inpatient (IN) | payer OTHER, SELFPAY ==
[2025-08-27] VITALS (7 sets, daily range): BP systolic 98–121; BP diastolic 63–81; PULSE 76–81; RESP 14–19; TEMP 36.7–37; O2SAT 91–100; BMI 15.0
--- NOTE | ~2025-08-27 | MR_ITS ---
EXAMINATION: MRI brain with and without contrast: DATE: 08/29/2025 INDICATION: Left-sided weakness. TECHNIQUE: Axial, coronal and sagittal images including diffusion sequence, T2*gradient sequence, postcontrast study after injection of MultiHance IV. COMPARISON: CT head without contrast 08/27/2025. FINDINGS: No acute ischemia on the diffusion sequence. No evidence of intracranial bleed or extra-axial collections. No evidence of ventriculomegaly or midline shift. Postcontrast examination shows no abnormal enhancement. IMPRESSION: 1. No acute ischemia. No evidence of intracranial bleed. 2. No space-occupying lesions, ventriculomegaly or abnormal enhancement. 3. FLAIR sequence show moderate, symmetric chronic ischemic change of periventricular, subcortical white matter, predominantly in the occipital region. Reviewed, dictated and finalized at location T. CONTENT & SOCIAL MEDIA MANAGER IMPRESSION: 1. No acute ischemia. No evidence of intracranial bleed. 2. No space-occupying lesions, ventriculomegaly or abnormal enhancement. 3. FLAIR sequence show moderate, symmetric chronic ischemic change of periventr icular, subcortical white matter, predominantly in the occipital region.
--- NOTE | ~2025-08-27 | CT_ITS ---
EXAMINATION: CT brain wo con DATE: 08/31/2025 15:36 INDICATION: 54-year-old female with behavioral change of left-sided weakness. TECHNIQUE: Computed tomography (CT) of the head was performed without intravenous contrast. The mA was adjusted according to patient size. Iterative reconstruction technique was employed. The dose-length product was 1156.07 mGy-cm. COMPARISON: CT head without contrast dated 08/27/2025. MRI brain with and without contrast dated 08/29/2025. FINDINGS: Some of the images are compromised by motion artifacts. No definite acute intracranial lesions. No ventriculomegaly or midline shift. Chronic ischemic change of periventricular white matter, predominantly in the occipital region. No acute bony lesions are seen. IMPRESSION: 1. Limited study due to motion artifacts on some of the images. 2. No acute intracranial lesions noted. Chronic small vessel ischemic change in the periventricular white matter predominantly in the occipital location. No significant change from prior imaging studies. Reviewed, dictated and finalized at location T. OR SCHEDULER IMPRESSION: 1. Limited study due to motion artifacts on some of the images. 2. No acute intracranial lesions noted. Chronic small vessel ischemic change in the periventricular white matter predominantly in the occipital location. No s ignificant change from prior imaging studies.
--- NOTE | ~2025-08-27 | CT_ITS ---
EXAMINATION: CT brain wo sharonda, 08/27/2025 16:20 STRUCTURAL ENGINEERING DRAFTING OFFICER HISTORY: altered mental status COMPARISON: No comparisons available. Technique: Axial images obtained of the brain without contrast. One or more of the following dose reduction techniques were used: automated exposure control, adjustment of the mA and/or kV according to patient size, use of iterative reconstruction technique. Findings: There are remote appearing bilateral basal ganglion lacunar infarcts with nonspecific focus of probable calcification of the left basal ganglia, there is no midline shift or mass effect. No extra-axial fluid collections. Mastoid air cells unremarkable. Sinuses and orbits unremarkable. No acute fracture. No significant facial or scalp soft tissue swelling evident. No radiopaque foreign body is seen. Impression: 1.No acute intracranial abnormality. Reviewed, dictated and finalized at location P. CTURAL ENGINEERING DRAFTING OFFICER Impression: 1.No acute intracranial abnormality.
--- NOTE | ~2025-08-27 | XR_ITS ---
EXAMINATION: XR chest 2V, 08/27/2025 16:35 DRESS DRAPER HISTORY: increased weakness COMPARISON: No comparisons available. Technique: 2 views obtained. Findings: The lungs are clear, no effusion. No pneumothorax. Heart is normal size. Mediastinal and hilar contours are within normal limits. Bony thorax no acute abnormality. Impression: No acute cardiopulmonary abnormality. Reviewed, dictated and finalized at location P. S DRAPER Impression: No acute cardiopulmonary abnormality.
--- NOTE | 2025-08-27 15:56 | ECG_ITS ---
Test Date: 2025-08-27 16:01:12 Measurements Intervals [place] Rate: 80 P: 75 CO: 179 QRS: -34 QRSD: 89 T: 74 QT: 417 QTc: 482 Interpretive Statements SINUS RHYTHM LEFT AXIS DEVIATION POSSIBLE LEFT ATRIAL ENLARGEMENT ANTEROSEPTAL INFARCT, AGE INDETERMINATE BORDERLINE T WAVE ABNORMALITY- HIGH LATERAL LEADS ABNORMAL ECG Compared to ECG 02/17/2025 08:11:51 HEART RATE HAS DECREASED Electronically Signed On 08-27-2025 19:17:32 MONITORING MANAGER by Tommie Pelayo D.O.
--- NOTE | 2025-08-27 15:57 | ED.GENADULT ---
HPI - General Adult General Chief complaint: Unspecified <Ashli Moe APRN - Last Filed: 08/27/25 23:52> Stated complaint: muscle weakness x days <Ashli Moe APRN - Last Filed: 08/27/25 23:52> Time Seen by Provider: 08/27/25 15:45 <Ashli Moe APRN - Last Filed: 08/27/25 23:52> History of Present Illness HPI narrative: Patient is a 54-year-old female who presents to the ER with bilateral arm weakness. Per EMS, they were called to [facility] due to patient's bilateral arm weakness and slurred speech that ended up relating to patient's dentures not fitting appropriately in her mouth. Upon time of examination patient is A&O x 1-2. According to her medical chart she has a history of alcohol-induced cirrhosis, seizures, and high blood pressure. Patient denies any abdominal pain, chest pain, or acute back pain. <Ashli Moe APRN - Last Filed: 08/27/25 23:52> Related Data Home medications: Home Medications ?Medication ?Instructions ?Recorded ?Confirmed ?Last Taken ?Type bisacodyl 5 mg tablet,delayed 5 mg PO DAILY PRN constipation 02/14/25 08/27/25 Unknown History release (Alophen (bisacodyl)) gabapentin 300 mg capsule 300 mg PO BID 02/14/25 08/27/25 Unknown History lactulose 10 gram/15 mL oral 10 g PO BID 02/14/25 08/27/25 Unknown History solution (Constulose) lidocaine 5 % topical patch 2 patch topical DAILY 02/14/25 08/27/25 Unknown History multivitamin-iron 9 mg-folic acid 1 tablet PO DAILY 02/14/25 08/27/25 Unknown History 400 mcg-calcium and minerals tablet (Thera-M) pantoprazole 40 mg granules 40 mg PO DAILY 02/14/25 08/27/25 Unknown History delayed-release for susp in packet (Protonix) thiamine mononitrate (vit B1) 100 100 mg PO DAILY 02/14/25 08/27/25 Unknown History mg tablet (Vitamin B-1 (mononitrate)) tramadol 50 mg tablet 50 mg PO Q6H PRN pain 02/14/25 08/27/25 Unknown History <Ashli Moe APRN - Last Filed: 08/27/25 23:52> Allergies/adverse reactions: Allergies Allergy/AdvReac Type Severity Reaction Status Date / Time ciprofloxacin Allergy Unknown Verified 08/27/25 23:37 metronidazole (From Flagyl) Allergy Unknown Verified 08/27/25 23:37 <Ashli Moe APRN - Last Filed: 08/27/25 23:52> Review of Systems Review of Systems: All systems reviewed & are unremarkable except as noted in HPI and below <Ashli Moe APRN - Last Filed: 08/27/25 23:52> [facility] Past Medical History Medical History: Medical History (Updated 08/28/25 @ 12:14 by Marisol Guy MD) Left wrist drop Wheelchair dependent Chronic constipation Hypertension Seizures Polysubstance abuse Anxiety and depression Diabetes mellitus GERD (gastroesophageal reflux disease) Emphysema lung Peripheral neuropathy 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 Anemia of chronic disease <Ashli Moe APRN - Last Filed: 08/27/25 23:52> Surgical History Surgical History: Surgical History Status post cataract extraction of both eyes with insertion of intraocular lens (09/2024) <Ashli Moe APRN - Last Filed: 08/27/25 23:52> Family History Family History: Family History Other Unknown family medical history <Ashli Moe APRN - Last Filed: 08/27/25 23:52> Social History Social History: Social History Smoking packs per day: 0.25 Smoking cigarettes per day: 5.0 Years smoked: 40 Smoking pack-years: 10.00 Smoking status: Current every day smoker Tobacco type: cigarettes Alcohol intake: former Substance use: never Substance use type: crack/cocaine and prescription drug Lack of Transportation: No Lack of Food: Never True Current Housing: I Have Housing Concerned About Future Housing: No Difficulty Paying Gas/Electric Bills: No Difficulty Paying for Meds: No Currently Unemployed: No Education: Grade School Difficulty w/ Childcare or Family Care: No Living arrangements: retirement Additional living arrangements comments: Ever care Spiritual care concerns: No <Ashli Moe APRN - Last Filed: 08/27/25 23:52> Exam Narrative: GENERAL: Well appearing, well-nourished, non-toxic, in no acute distress. HEAD: Normocephalic, atraumatic. NECK: Supple. No adenopathy, no masses. RESPIRATORY: Airway patent, respirations nonlabored. Clear to auscultation bilaterally, no rales, rhonchi, wheezing. CARDIOVASCULAR: Regular rate and rhythm without murmurs, rubs, or gallops. Peripheral pulses 2+ and equal bilaterally. ABDOMINAL: Soft, nontender, nondistended, no hepatosplenomegaly. Normoactive BS. MUSCULOSKELETAL: Moves all extremities. Strength/ROM intact without gross deformities. SKIN: Warm, dry, normal color. No rashes. NEURO: A&O X 1-2. Speech clear. Cranial nerves II-XII intact. PSYCHIATRIC: Appropriate mood and affect. Normal interaction. <Ashli Moe APRN - Last Filed: 08/27/25 23:52> Course [employer]/PA Physician Supervision This visit was performed by both a physician and an APC. I performed all aspects of the MDM as documented. <Jim Cerda MD - Last Filed: 08/29/25 02:47> Vital Signs Vital signs: Vital Signs Pulse Rate 81 08/27/25 15:42 Respiratory Rate 16 08/27/25 15:42 Blood Pressure 115/81 08/27/25 15:42 Pulse Oximetry 97 08/27/25 15:42 Oxygen Delivery Room Air 08/27/25 15:42 Temperature 98.0 F 08/29/25 00:00 Pulse Rate 90 08/29/25 00:00 Respiratory Rate 18 08/29/25 00:00 Blood Pressure 100/77 08/29/25 00:00 Pulse Oximetry 97 08/29/25 00:00 Oxygen Delivery Room Air 08/28/25 13:33 Oxygen Flow Rate 2 08/27/25 23:30 <Ashli Moe APRN - Last Filed: 08/27/25 23:52> Vital Signs Pulse Rate 81 08/27/25 15:42 Respiratory Rate 16 08/27/25 15:42 Blood Pressure 115/81 08/27/25 15:42 Pulse Oximetry 97 08/27/25 15:42 Oxygen Delivery Room Air 08/27/25 15:42 Temperature 98.0 F 08/29/25 00:00 Pulse Rate 90 08/29/25 00:00 Respiratory Rate 18 08/29/25 00:00 Blood Pressure 100/77 08/29/25 00:00 Pulse Oximetry 97 08/29/25 00:00 Oxygen Delivery Room Air 08/28/25 13:33 Oxygen Flow Rate 2 08/27/25 23:30 <Jim Cerda MD - Last Filed: 08/29/25 02:47> MDM MDM Narrative Medical decision making narrative: Patient is a 54-year-old female who presents to the ER with bilateral arm weakness. Per EMS, they were called to [facility] due to patient's bilateral arm weakness and slurred speech that ended up relating to patient's dentures not fitting appropriately in her mouth. Upon time of examination patient is A&O x 1-2. According to her medical chart she has a history of alcohol-induced cirrhosis, seizures, and high blood pressure. Patient denies any abdominal pain, chest pain, or acute back pain. Labs Ordered: CBC, CMP, coags, ABG, lactic acid, CRP, beta hydroxybutyrate, magnesium, phosphorus, A1c, ethanol Imaging Ordered: CT brain Medications Ordered: Thiamine IV, folic acid IV, 1 L normal saline IV bolus Results: Pt's beta hydroxybutyrate was 0.53. Diagnosis: Hyperosmolar hyperglycemic state Consults: 1799- Spoke with Dr. Mcgill, who agrees with plan for admission to ICU. He would like the DKA protocol to be followed. Pt should also receive 2-3 L of normal saline IV bolus. 1809-Spoke with hospitalist, Keily Gary NP, who is in agreement with plan for admission. CRITICAL CARE ADDENDUM: Indication: Hyperosmolar hyperglycemic state Time type: intermittent I provided a total of 35 minutes of critical care excluding separately billable procedures. This includes time w/ EMS, initial bedside evaluation, reviewing old records, review of testing done while under my care, discussion w/ the family, nurses, application packaging consultant and guiding the patient?s care while in the emergency department. No family present to discuss plan for admission. <Ashli Moe APRN - Last Filed: 08/27/25 23:52> Differential Diagnosis Differential Diagnosis: Stroke, diabetic ketoacidosis, altered mental status, hyperglycemia, postictal <Ashliel Moe APRN - Last Filed: 08/27/25 23:52> Lab Data MDM Lab Attestation statement: I personally reviewed the patient's lab results. <Ashli Moe APRN - Last Filed: 08/27/25 23:52> Result diagrams: 08/28/25 04:20 08/28/25 07:52 <Ashli Moe APRN - Last Filed: 08/27/25 23:52> Labs: Lab Results 08/27/25 08/27/25 08/27/25 Range/Units 15:58 15:58 16:16 WBC 9.3 (4.5-10.0) K/mm3 RBC 4.34 (4.2-5.4) M/mm3 Hgb 11.5 L D (12.0-15.0) g/dL Hct 35.8 L (37.0-47.0) % MCV 82.5 (80-100) fl MCH 26.5 (26-34) pg MCHC 32.1 (32-36) g/dl RDW 13.4 (11.5-14.5) % Plt Count 221 (150-375) k/mm3 MPV 12.6 H (7.4-10.4) fl Immature Gran % (Auto) 0.4 (0-0.5) % Neut % (Auto) 74.1 H (45.5-73.1) % Lymph % (Auto) 17.9 L (18.3-44.2) % Benzie % (Auto) 6.3 (2.6-8.5) % Eos % (Auto) 0.9 (0-4.4) % Baso % (Auto) 0.4 (0.2-1.2) % Lymph # (Auto) 1.67 (0.9-3.2) K/mm3 Benzie # (Auto) 0.6 (0.1-0.6) K/mm3 Eos # (Auto) 0.1 (0-0.3) K/mm3 Baso # (Auto) 0.0 (0.0-0.1) K/mm3 Abs Immat Gran (auto) 0.04 H (0.00-0.031) K/mm3 Absolute Neuts (auto) 6.9 H (1.3-6.7) K/mm3 Absolute Nucleated RBC 0.000 (0.0-0.012) K/mm3 Nucleated RBC % 0.0 (0.0-0.2) % PT 13.8 (11.1-14.7) Seconds INR 1.0 APTT 32.2 (22.3-36.8) Seconds Sodium (137-145) mmol/L Potassium (3.4-5.0) mmol/L Chloride (98-107) mmol/L Carbon Dioxide (22-30) mmol/L Anion Gap (4-12) mmol/L BUN (7-17) mg/dL Creatinine (0.7-1.0) mg/dL Estim Creat Clear Calc ml/min Estimated GFR (59 - ) Glucose (65-110) mg/dL POC Capillary Glucose (65-105) mg/dl Hemoglobin A1c Lactic Acid 0.8 (0.7-2.0) mmol/L Calcium (8.4-10.2) mg/dL Phosphorus (2.5-4.5) mg/dL Magnesium (1.6-2.3) mg/dL Total Bilirubin (0.2-1.3) mg/dL AST (14-36) U/L ALT (6-35) U/L Alkaline Phosphatase (38-126) U/L C-Reactive Protein Cancelled 1.9 H Total Protein (6.3-8.2) g/dL Albumin (3.5-5.1) g/dL Vitamin B12 (239-931) pg/mL Folate (2.76->20) ng/mL Beta-Hydroxybutyrate/Acetoacetate 0.53 H (0.02-0.27) mmol/L Ethyl Alcohol (<10) mg/dL Miscellaneous Test Ref Lab Test Name Ref Lab Test Result 08/27/25 08/27/25 08/27/25 Range/Units 17:24 17:24 17:24 WBC (4.5-10.0) K/mm3 RBC (4.2-5.4) M/mm3 Hgb (12.0-15.0) g/dL Hct (37.0-47.0) % MCV (80-100) fl MCH (26-34) pg MCHC (32-36) g/dl RDW (11.5-14.5) % Plt Count (150-375) k/mm3 MPV (7.4-10.4) fl Immature Gran % (Auto) (0-0.5) % Neut % (Auto) (45.5-73.1) % Lymph % (Auto) (18.3-44.2) % Benzie % (Auto) (2.6-8.5) % Eos % (Auto) (0-4.4) % Baso % (Auto) (0.2-1.2) % Lymph # (Auto) (0.9-3.2) K/mm3 Benzie # (Auto) (0.1-0.6) K/mm3 Eos # (Auto) (0-0.3) K/mm3 Baso # (Auto) (0.0-0.1) K/mm3 Abs Immat Gran (auto) (0.00-0.031) K/mm3 Absolute Neuts (auto) (1.3-6.7) K/mm3 Absolute Nucleated RBC (0.0-0.012) K/mm3 Nucleated RBC % (0.0-0.2) % PT (11.1-14.7) Seconds INR APTT (22.3-36.8) Seconds Sodium 121 L (137-145) mmol/L Potassium 5.0 (3.4-5.0) mmol/L Chloride 84 L (98-107) mmol/L Carbon Dioxide 28 (22-30) mmol/L Anion Gap 9 (4-12) mmol/L BUN 44 H D (7-17) mg/dL Creatinine 1.08 H (0.7-1.0) mg/dL Estim Creat Clear Calc 40 ml/min Estimated GFR 52 L (59 - ) Glucose 806 H* (65-110) mg/dL POC Capillary Glucose (65-105) mg/dl Hemoglobin A1c Cancelled Lactic Acid (0.7-2.0) mmol/L Calcium 10.3 H (8.4-10.2) mg/dL Phosphorus 4.3 Cancelled (2.5-4.5) mg/dL Magnesium 1.9 Cancelled (1.6-2.3) mg/dL Total Bilirubin 0.6 (0.2-1.3) mg/dL AST 36 (14-36) U/L ALT 30 (6-35) U/L Alkaline Phosphatase 326 H (38-126) U/L C-Reactive Protein Total Protein 8.2 (6.3-8.2) g/dL Albumin 4.3 (3.5-5.1) g/dL Vitamin B12 661.0 (239-931) pg/mL Folate 11.4 (2.76->20) ng/mL Beta-Hydroxybutyrate/Acetoacetate (0.02-0.27) mmol/L Ethyl Alcohol < 10 (<10) mg/dL Miscellaneous Test Ref Lab Test Name Ref Lab Test Result 08/27/25 08/27/25 Range/Units 17:24 17:59 WBC (4.5-10.0) K/mm3 RBC (4.2-5.4) M/mm3 Hgb (12.0-15.0) g/dL Hct (37.0-47.0) % MCV (80-100) fl MCH (26-34) pg MCHC (32-36) g/dl RDW (11.5-14.5) % Plt Count (150-375) k/mm3 MPV (7.4-10.4) fl Immature Gran % (Auto) (0-0.5) % Neut % (Auto) (45.5-73.1) % Lymph % (Auto) (18.3-44.2) % Benzie % (Auto) (2.6-8.5) % Eos % (Auto) (0-4.4) % Baso % (Auto) (0.2-1.2) % Lymph # (Auto) (0.9-3.2) K/mm3 Benzie # (Auto) (0.1-0.6) K/mm3 Eos # (Auto) (0-0.3) K/mm3 Baso # (Auto) (0.0-0.1) K/mm3 Abs Immat Gran (auto) (0.00-0.031) K/mm3 Absolute Neuts (auto) (1.3-6.7) K/mm3 Absolute Nucleated RBC (0.0-0.012) K/mm3 Nucleated RBC % (0.0-0.2) % PT (11.1-14.7) Seconds INR APTT (22.3-36.8) Seconds Sodium (137-145) mmol/L Potassium (3.4-5.0) mmol/L Chloride (98-107) mmol/L Carbon Dioxide (22-30) mmol/L Anion Gap (4-12) mmol/L BUN (7-17) mg/dL Creatinine (0.7-1.0) mg/dL Estim Creat Clear Calc ml/min Estimated GFR (59 - ) Glucose (65-110) mg/dL POC Capillary Glucose > 500 H* (65-105) mg/dl Hemoglobin A1c Lactic Acid (0.7-2.0) mmol/L Calcium (8.4-10.2) mg/dL Phosphorus (2.5-4.5) mg/dL Magnesium (1.6-2.3) mg/dL Total Bilirubin (0.2-1.3) mg/dL AST (14-36) U/L ALT (6-35) U/L Alkaline Phosphatase (38-126) U/L C-Reactive Protein Total Protein (6.3-8.2) g/dL Albumin (3.5-5.1) g/dL Vitamin B12 (239-931) pg/mL Folate (2.76->20) ng/mL Beta-Hydroxybutyrate/Acetoacetate (0.02-0.27) mmol/L Ethyl Alcohol Cancelled (<10) mg/dL Miscellaneous Test Pending Ref Lab Test Name Cancelled Ref Lab Test Result Cancelled <Ashli Moe, [employer] - Last Filed: 08/27/25 23:52> Lab Results 08/27/25 08/27/25 08/27/25 Range/Units 15:58 15:58 16:16 WBC 9.3 (4.5-10.0) K/mm3 RBC 4.34 (4.2-5.4) M/mm3 Hgb 11.5 L D (12.0-15.0) g/dL Hct 35.8 L (37.0-47.0) % MCV 82.5 (80-100) fl MCH 26.5 (26-34) pg MCHC 32.1 (32-36) g/dl RDW 13.4 (11.5-14.5) % Plt Count 221 (150-375) k/mm3 MPV 12.6 H (7.4-10.4) fl Immature Gran % (Auto) 0.4 (0-0.5) % Neut % (Auto) 74.1 H (45.5-73.1) % Lymph % (Auto) 17.9 L (18.3-44.2) % Benzie % (Auto) 6.3 (2.6-8.5) % Eos % (Auto) 0.9 (0-4.4) % Baso % (Auto) 0.4 (0.2-1.2) % Lymph # (Auto) 1.67 (0.9-3.2) K/mm3 Benzie # (Auto) 0.6 (0.1-0.6) K/mm3 Eos # (Auto) 0.1 (0-0.3) K/mm3 Baso # (Auto) 0.0 (0.0-0.1) K/mm3 Abs Immat Gran (auto) 0.04 H (0.00-0.031) K/mm3 Absolute Neuts (auto) 6.9 H (1.3-6.7) K/mm3 Absolute Nucleated RBC 0.000 (0.0-0.012) K/mm3 Nucleated RBC % 0.0 (0.0-0.2) % PT 13.8 (11.1-14.7) Seconds INR 1.0 APTT 32.2 (22.3-36.8) Seconds Sodium (137-145) mmol/L Potassium (3.4-5.0) mmol/L Chloride (98-107) mmol/L Carbon Dioxide (22-30) mmol/L Anion Gap (4-12) mmol/L BUN (7-17) mg/dL Creatinine (0.7-1.0) mg/dL Estim Creat Clear Calc ml/min Estimated GFR (59 - ) Glucose (65-110) mg/dL POC Capillary Glucose (65-105) mg/dl Hemoglobin A1c Lactic Acid 0.8 (0.7-2.0) mmol/L Calcium (8.4-10.2) mg/dL Phosphorus (2.5-4.5) mg/dL Magnesium (1.6-2.3) mg/dL Total Bilirubin (0.2-1.3) mg/dL AST (14-36) U/L ALT (6-35) U/L Alkaline Phosphatase (38-126) U/L C-Reactive Protein Cancelled 1.9 H Total Protein (6.3-8.2) g/dL Albumin (3.5-5.1) g/dL Vitamin B12 (239-931) pg/mL Folate (2.76->20) ng/mL Beta-Hydroxybutyrate/Acetoacetate 0.53 H (0.02-0.27) mmol/L Ethyl Alcohol (<10) mg/dL Miscellaneous Test Ref Lab Test Name Ref Lab Test Result 08/27/25 08/27/25 08/27/25 Range/Units 17:24 17:24 17:24 WBC (4.5-10.0) K/mm3 RBC (4.2-5.4) M/mm3 Hgb (12.0-15.0) g/dL Hct (37.0-47.0) % MCV (80-100) fl MCH (26-34) pg MCHC (32-36) g/dl RDW (11.5-14.5) % Plt Count (150-375) k/mm3 MPV (7.4-10.4) fl Immature Gran % (Auto) (0-0.5) % Neut % (Auto) (45.5-73.1) % Lymph % (Auto) (18.3-44.2) % Benzie % (Auto) (2.6-8.5) % Eos % (Auto) (0-4.4) % Baso % (Auto) (0.2-1.2) % Lymph # (Auto) (0.9-3.2) K/mm3 Benzie # (Auto) (0.1-0.6) K/mm3 Eos # (Auto) (0-0.3) K/mm3 Baso # (Auto) (0.0-0.1) K/mm3 Abs Immat Gran (auto) (0.00-0.031) K/mm3 Absolute Neuts (auto) (1.3-6.7) K/mm3 Absolute Nucleated RBC (0.0-0.012) K/mm3 Nucleated RBC % (0.0-0.2) % PT (11.1-14.7) Seconds INR APTT (22.3-36.8) Seconds Sodium 121 L (137-145) mmol/L Potassium 5.0 (3.4-5.0) mmol/L Chloride 84 L (98-107) mmol/L Carbon Dioxide 28 (22-30) mmol/L Anion Gap 9 (4-12) mmol/L BUN 44 H D (7-17) mg/dL Creatinine 1.08 H (0.7-1.0) mg/dL Estim Creat Clear Calc 40 ml/min Estimated GFR 52 L (59 - ) Glucose 806 H* (65-110) mg/dL POC Capillary Glucose (65-105) mg/dl Hemoglobin A1c Cancelled Lactic Acid (0.7-2.0) mmol/L Calcium 10.3 H (8.4-10.2) mg/dL Phosphorus 4.3 Cancelled (2.5-4.5) mg/dL Magnesium 1.9 Cancelled (1.6-2.3) mg/dL Total Bilirubin 0.6 (0.2-1.3) mg/dL AST 36 (14-36) U/L ALT 30 (6-35) U/L Alkaline Phosphatase 326 H (38-126) U/L C-Reactive Protein Total Protein 8.2 (6.3-8.2) g/dL Albumin 4.3 (3.5-5.1) g/dL Vitamin B12 661.0 (239-931) pg/mL Folate 11.4 (2.76->20) ng/mL Beta-Hydroxybutyrate/Acetoacetate (0.02-0.27) mmol/L Ethyl Alcohol < 10 (<10) mg/dL Miscellaneous Test Ref Lab Test Name Ref Lab Test Result 08/27/25 08/27/25 Range/Units 17:24 17:59 WBC (4.5-10.0) K/mm3 RBC (4.2-5.4) M/mm3 Hgb (12.0-15.0) g/dL Hct (37.0-47.0) % MCV (80-100) fl MCH (26-34) pg MCHC (32-36) g/dl RDW (11.5-14.5) % Plt Count (150-375) k/mm3 MPV (7.4-10.4) fl Immature Gran % (Auto) (0-0.5) % Neut % (Auto) (45.5-73.1) % Lymph % (Auto) (18.3-44.2) % Benzie % (Auto) (2.6-8.5) % Eos % (Auto) (0-4.4) % Baso % (Auto) (0.2-1.2) % Lymph # (Auto) (0.9-3.2) K/mm3 Benzie # (Auto) (0.1-0.6) K/mm3 Eos # (Auto) (0-0.3) K/mm3 Baso # (Auto) (0.0-0.1) K/mm3 Abs Immat Gran (auto) (0.00-0.031) K/mm3 Absolute Neuts (auto) (1.3-6.7) K/mm3 Absolute Nucleated RBC (0.0-0.012) K/mm3 Nucleated RBC % (0.0-0.2) % PT (11.1-14.7) Seconds INR APTT (22.3-36.8) Seconds Sodium (137-145) mmol/L Potassium (3.4-5.0) mmol/L Chloride (98-107) mmol/L Carbon Dioxide (22-30) mmol/L Anion Gap (4-12) mmol/L BUN (7-17) mg/dL Creatinine (0.7-1.0) mg/dL Estim Creat Clear Calc ml/min Estimated GFR (59 - ) Glucose (65-110) mg/dL POC Capillary Glucose > 500 H* (65-105) mg/dl Hemoglobin A1c Lactic Acid (0.7-2.0) mmol/L Calcium (8.4-10.2) mg/dL Phosphorus (2.5-4.5) mg/dL Magnesium (1.6-2.3) mg/dL Total Bilirubin (0.2-1.3) mg/dL AST (14-36) U/L ALT (6-35) U/L Alkaline Phosphatase (38-126) U/L C-Reactive Protein Total Protein (6.3-8.2) g/dL Albumin (3.5-5.1) g/dL Vitamin B12 (239-931) pg/mL Folate (2.76->20) ng/mL Beta-Hydroxybutyrate/Acetoacetate (0.02-0.27) mmol/L Ethyl Alcohol Cancelled (<10) mg/dL Miscellaneous Test Pending Ref Lab Test Name Cancelled Ref Lab Test Result Cancelled <Jim Cerda MD - Last Filed: 08/29/25 02:47> ABG Data ABG results: 08/27/25 16:17 Puncture Site Left radial ABG pH 7.457 H ABG pCO2 38.2 ABG pO2 101.7 H ABG PO2/FiO2 Ratio 4.84 ABG HCO3 26.4 H ABG O2 Saturation 97.9 ABG O2 Content 16.3 ABG Base Excess 2.5 A-a Gradient 2.3 Oxyhemoglobin 93.2 Total Hemoglobin 12.3 O2 Delivery Device Room air O2 Liters/Min Not Reportable FiO2 21 <Ashli Moe APRN - Last Filed: 08/27/25 23:52> 08/27/25 16:17 Puncture Site Left radial ABG pH 7.457 H ABG pCO2 38.2 ABG pO2 101.7 H ABG PO2/FiO2 Ratio 4.84 ABG HCO3 26.4 H ABG O2 Saturation 97.9 ABG O2 Content 16.3 ABG Base Excess 2.5 A-a Gradient 2.3 Oxyhemoglobin 93.2 Total Hemoglobin 12.3 O2 Delivery Device Room air O2 Liters/Min Not Reportable FiO2 21 <Jim Cerda MD - Last Filed: 08/29/25 02:47> Imaging Data Radiologist's impression: ITS Impressions Chest X-Ray 08/27/25 17:00 Impression: No acute cardiopulmonary abnormality. Head CT 08/27/25 17:00 Impression: 1.No acute intracranial abnormality. <Ashli Moe APRN - Last Filed: 08/27/25 23:52> ITS Impressions Chest X-Ray 08/27/25 17:00 Impression: No acute cardiopulmonary abnormality. Head CT 08/27/25 17:00 Impression: 1.No acute intracranial abnormality. <Jim Cerda MD - Last Filed: 08/29/25 02:47> Critical Care Time Critical Care Time Critical Care Time: Yes <Ashli Moe APRN - Last Filed: 08/27/25 23:52> Time Type: Intermittent <Ashli Moe APRN - Last Filed: 08/27/25 23:52> Initial evaluation, discuss w/ involved parties, attempting to gather old records: 10 minutes <Ashli Moe APRN - Last Filed: 08/27/25 23:52> Documenting medical record: 5 minutes <Ashli Moe APRN - Last Filed: 08/27/25 23:52> Review of results (EKG's, labs, imaging): 5 minutes <Ashli Moe APRN - Last Filed: 08/27/25 23:52> Serial repeat bedside evaluation: 10 minutes <Ashli Moe APRN - Last Filed: 08/27/25 23:52> Discussing case with multiple memebers of the care team and consultants: 5 minutes <Ashli Moe APRN - Last Filed: 08/27/25 23:52> Total Critical Care Time: 35 <Ashli Moe APRN - Last Filed: 08/27/25 23:52> 35 <Jim Cerda MD - Last Filed: 08/29/25 02:47> Discharge Plan Discharge Clinical Impression: Hyperosmolar hyperglycemic state (HHS), History of alcoholism <Ashli Moe APRN - Last Filed: 08/27/25 23:52> Patient Disposition: Still a Patient <Ashli Moe APRN - Last Filed: 08/27/25 23:52> Condition: Serious <Ashli Moe APRN - Last Filed: 08/27/25 23:52>
[2025-08-27 16:06] LABS: Hematocrit 35.8 % (37.0-47.0); Hemoglobin 11.5 g/dL (12.0-15.0); Immature Granulocyte Percent A 0.4 % (0-0.5); Lymphocytes Absolute Auto 1.67 K/mm3 (0.9-3.2); Mean Corpuscular HGB Conc 32.1 g/dl (32-36); Mean Corpuscular Hemoglobin 26.5 pg (26-34); Mean Corpuscular Volume 82.5 fl (80-100); Nucleated Red Blood Cells Absolute Auto 0.000 K/mm3 (0.0-0.012); Nucleated Red Blood Cells Perc 0.0 % (0.0-0.2); Platelet Count Result 221 k/mm3 (150-375); Red Blood Count 4.34 M/mm3 (4.2-5.4); White Blood Count 9.3 K/mm3 (4.5-10.0)
[2025-08-27 16:16] LABS: INR 1.0; Prothrombin Time 13.8 Seconds (11.1-14.7)
[2025-08-27 16:17] LABS: Partial Thromboplastin Time 32.2 Seconds (22.3-36.8)
[2025-08-27 16:21] LABS: Alveolar/Arterial O2 Gradient 2.3 mmHg; Fractional Inspired Oxygen 21 %; HCO3 ABG 26.4 mEq/l (22.0-26.0); Oxygen Content ABG 16.3 %vol (16.0-22.0); Oxygen Saturation ABG 97.9 % (95.0-100.0); PCO2 ABG 38.2 mmHg (35.0-45.0); PO2 ABG 101.7 mmHg (80.0-100.0); PO2 FiO2 Ratio Arterial Blood 4.84 %
[2025-08-27] MEDS: SODIUM CHLORIDE 0.9% IV 1,000 ML 500 ML IV CONT (16:21)
[2025-08-27 16:22] LABS: Modified Allen's Test Pass; Site Drawn LEFT RADIAL
[2025-08-27 16:32] LABS: CRP 1.9 mg/dL (<1.0)
[2025-08-27 16:36] LABS: Beta-Hydroxybutyrate/Acetoace. 0.53 mmol/L (0.02-0.27)
[2025-08-27] MEDS: THIAMINE HCL 200 MG/2 ML VIAL 100 MG IV PUSH (17:25)
[2025-08-27] MEDS: FOLIC ACID 1 MG/0.2 ML INJ IV PUSH (17:26)
[2025-08-27 17:58] LABS: Alanine Aminotransferase 30 U/L (6-35); Albumin Level 4.3 g/dL (3.5-5.1); Alkaline Phosphatase 326 U/L (38-126); Anion Gap 9 mmol/L (4-12); Aspartate Amino Transferase 36 U/L (14-36); Bilirubin,Total 0.6 mg/dL (0.2-1.3); Blood Urea Nitrogen 44 mg/dL (7-17); Calcium 10.3 mg/dL (8.4-10.2); Carbon Dioxide 28 mmol/L (22-30); Chloride 84 mmol/L (98-107); Estimated CRCL calculation 40 ml/min; Estimated Glomerular Filt Rate 52; Glucose 806 mg/dL (65-110); Magnesium 1.9 mg/dL (1.6-2.3); Potassium 5.0 mmol/L (3.4-5.0); Sodium 121 mmol/L (137-145); Total Protein 8.2 g/dL (6.3-8.2)
[2025-08-27] MEDS: INSULIN HUMAN REGULAR (*BKC) 100 UNITS/ML 7.4 UNITS IV PUSH (18:20)
[2025-08-27] MEDS: SODIUM CHLORIDE 0.9% IV 992 ML IV CONT (18:23)
[2025-08-27 18:53] LABS: Vitamin B12 661.0 pg/mL (239-931)
[2025-08-27] MEDS: INSULIN HUMAN REGULAR (*BKC) 100 UNITS in SODIUM CHLORIDE 0.9% IV 99 ML IV CONT (19:04)
[2025-08-27 20:32] LABS: Anion Gap 9 mmol/L (4-12); Blood Urea Nitrogen 38 mg/dL (7-17); Calcium 10.3 mg/dL (8.4-10.2); Carbon Dioxide 28 mmol/L (22-30); Chloride 91 mmol/L (98-107); Estimated CRCL calculation 40 ml/min; Estimated Glomerular Filt Rate 52; Glucose 537 mg/dL (65-110); Potassium 4.0 mmol/L (3.4-5.0); Sodium 128 mmol/L (137-145)
--- NOTE | 2025-08-27 20:33 | PM.IMHP2 ---
H&P: HPI History of Present Illness Date/Time: 08/27/25 20:33 Chief Complaint: Weakness Narrative: 54 y/o F with PMH of previous history of polysubstance abuse, anxiety/depression diabetes, emphysema, dementia, alcoholic cirrhosis of the liver with ascites, and anemia of chronic disease presents here with weakness. The patient presents here from [facility] on 08/27 for further evaluation of generalized weakness as well as focal weakness. She initially developed changes in her speech that had been intermittent, left upper extremity weakness, and patient changes starting around Thanksgiving (08/17). Speech changes more so appreciated by a family members who reported these findings to staff at her facility, however the did not feel there was anything significant. Per family, at they reported that they were going to obtain XRs of the patient's left wrist, however she did not undergo any further imaging or neurologic assessment. More so sent today for generalized weakness that has been progressive over the past week. She denies accompanying nausea, vomiting, diarrhea, fever, chills, polydipsia, polyuria. Patient and family deny any recent changes to her diabetes medications. She arrived significantly hyperglycemic at 806. Initial VS at presentation: 98.6? F, HR 81, R 16, 115/81, and 97% on RA. ED workup showed: No leukocytosis, hemoglobin 11.5 (previously 8.0 in January of 2025), normal coags, mild alkalosis, sodium corrected to 135 when accounting for glucose levels, anion gap within normal limits, creatinine 1.08 and GFR 52, glucose 86, lactic 0.8, CRP 1.9, beta hydroxy 0.53. CXR showed no acute cardiopulmonary abnormality. Head CT showed remote appearing bilateral basal ganglion lacunar infarcts with nonspecific focus of probable calcification unless basal ganglia, otherwise no acute intracranial abnormality. Review of Systems Review of Systems: All systems reviewed & are unremarkable except as noted in HPI and below PMFSH Past Medical History Medical History Wheelchair dependent Chronic constipation Hypertension Seizures Polysubstance abuse Anxiety and depression Diabetes mellitus GERD (gastroesophageal reflux disease) Emphysema lung Peripheral neuropathy 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 Anemia of chronic disease Surgical History Surgical History Status post cataract extraction of both eyes with insertion of intraocular lens (09/2024) Family History Family History Other Unknown family medical history Social History Social History Smoking status: Former smoker Alcohol intake: former Substance use: former Substance use type: crack/cocaine and prescription drug Living arrangements: residential Additional living arrangements comments: [facility] Spiritual care concerns: No Meds Home Medications and Allergies Home Medications ?Medication ?Instructions ?Recorded ?Confirmed ?Type bisacodyl 5 mg tablet,delayed 5 mg PO DAILY PRN constipation 02/14/25 02/14/25 History release (Alophen (bisacodyl)) gabapentin 300 mg capsule 300 mg PO TID 02/14/25 02/14/25 History lactulose 10 gram/15 mL oral 10 g PO BID 02/14/25 02/14/25 History solution (Constulose) lidocaine 5 % topical patch 2 patch topical DAILY 02/14/25 02/14/25 History mesalamine 500 mg capsule,extended 1,200 mg PO DAILY 02/14/25 02/14/25 History release (Pentasa) multivitamin-iron 9 mg-folic acid 1 tablet PO DAILY 02/14/25 02/14/25 History 400 mcg-calcium and minerals tablet (Thera-M) pantoprazole 40 mg granules 40 mg PO DAILY 02/14/25 02/14/25 History delayed-release for susp in packet (Protonix) thiamine mononitrate (vit B1) 100 100 mg PO DAILY 02/14/25 02/14/25 History mg tablet (Vitamin B-1 (mononitrate)) tramadol 50 mg tablet 50 mg PO Q6H PRN pain 02/14/25 02/14/25 History amlodipine 5 mg tablet (Norvasc) 5 mg PO DAILY 30 days #30 tabs 02/18/25 Rx cefdinir 300 mg capsule 300 mg PO Q12H 10 days #20 caps 02/18/25 Rx doxycycline hyclate 100 mg tablet 100 mg PO BID 10 days #20 tabs 02/18/25 Rx furosemide 20 mg tablet 40 mg (2 x 20 mg) PO DAILY 30 days 02/18/25 02/14/25 Rx #0 tabs metoprolol tartrate 25 mg tablet 12.5 mg (1/2 x 25 mg) PO BID 30 02/18/25 Rx days #30 tabs spironolactone 50 mg tablet 100 mg (2 x 50 mg) PO QAM 30 days 02/18/25 Rx (Aldactone) #60 tabs Allergies Allergy/AdvReac Type Severity Reaction Status Date / Time ciprofloxacin Allergy Unknown Verified 08/27/25 18:20 metronidazole (From Flagyl) Allergy Unknown Verified 08/27/25 18:20 Vital Signs Vital Signs - 24 hr 08/27/25 15:42 08/27/25 15:48 08/27/25 17:26 Temperature 98.6 F Pulse Rate 81 79 Respiratory Rate 16 17 Blood Pressure 115/81 107/72 Pulse Oximetry 97 100 Oxygen Delivery Room Air Exam Const: General: comfortable and no acute distress Other: , female, frail, older-appearing than stated age HENMT: Face/Nose/Sinus: Normal nares present Mouth: Yes moist mucous membranes Eyes: General: appearance normal, both eyes and all related structures Sclera: sclerae normal Pupils: Equal, round and reactive pupils present EOM: EOMs intact bilaterally Resp: Effort & Inspection: normal respiratory effort Auscultation: clear to auscultation bilaterally Cardio: Rate: regular rate Rhythm: regular rhythm Other: S1-S2 present without murmur, rub, ectopy GI: Other: Abdomen soft, nondistended, nontender. Normoactive bowel sounds in all quadrants. Skin: General skin exam: normal color and no rashes or lesions noted Wounds: no wounds Neuro: Other: Who no appreciable dysarthria. A&O x4. No facial asymmetry. Peripheral vision deficit on the right outer. EOM intact. 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 +4 in the right upper extremity and bilateral lower extremities. No sensory deficits. Extrem: General: normal to inspection Psych: Mental Status: mental status grossly normal Affect: normal affect Other: Good insight and judgment, pleasant Results Labs Labs: Short CBC 08/27/25 Range/Units 15:58 WBC 9.3 (4.5-10.0) K/mm3 Hgb 11.5 L D (12.0-15.0) g/dL Hct 35.8 L (37.0-47.0) % Plt Count 221 (150-375) k/mm3 BMP 08/27/25 08/27/25 17:24 19:53 Sodium 121 L 128 L Potassium 5.0 4.0 Chloride 84 L 91 L Carbon Dioxide 28 28 BUN 44 H D 38 H Creatinine 1.08 H 1.08 H Glucose 806 H* 537 H* Calcium 10.3 H 10.3 H Liver Function 08/27/25 Range/Units 17:24 Total Bilirubin 0.6 (0.2-1.3) mg/dL AST 36 (14-36) U/L ALT 30 (6-35) U/L Alkaline Phosphatase 326 H (38-126) U/L Albumin 4.3 (3.5-5.1) g/dL Critical Care Time Critical Care Time Critical Care Time: Yes Time Type: Intermittent Initial evaluation, discuss w/ involved parties, attempting to gather old records: 10 minutes Documenting medical record: 10 minutes Review of results (EKG's, labs, imaging): 10 minutes Serial repeat bedside evaluation: N/A Discussing case with multiple memebers of the care team and consultants: 5 minutes Total Critical Care Time: 35 Quality VTE Prophylaxis VTE prophylaxis: mechanical ordered Assessment and Plan Assessment and plan (1) Hyperosmolar hyperglycemic state (HHS): Code(s): E11.00 - Type 2 diabetes mellitus with hyperosmolarity without nonketotic hyperglycemic-hyperosmolar coma (NKHHC) Status: Acute Assessment and Plan: History of type 2 diabetes on metformin for years per her family with no recent changes. Arrived to the emergency department significantly hyperglycemic at 806. Mild alkalosis noted on blood gas. Anion gap closed. Beta hydroxy 0.53. - no current evidence of hypovolemia and euvolemic on exam, BP upon arrival 115/81 - insulin gtt initiated on 08/27, NPO - DKA protocol and hypoglycemia initiated - odium corrected to 135 when accounting for glucose levels - BMP and renal function Q4H while on insulin gtt - home medications held - A1C ordered - special education paraeducator and dietitian consulted - admitted to the ICU with assistant manager airside operations consulted (2) Left arm weakness: Code(s): R29.898 - Other symptoms and signs involving the musculoskeletal system Status: Acute Assessment and Plan: New deficits of significant left provider strongly weakness, intermittent dysarthria, and right peripheral vision deficits starting around Thanksgiving on 08/17. No previous history of CVA noted. Head CT noted remote appearing bilateral basal ganglion lacunar infarcts with nonspecific focus of probable calcification of the last basal ganglia without midline shift or mass effect. - admission for observation and telemetry - not candidate for thrombolytics or thrombectomy due to timeframe - CXR unremarkable - neurology consulted - brain MRI w/wo ordered - echo w/Bubble ordered - neuro checks Qshift - PT/OT to eval and treat - monitor daily labs, add lipid panel and A1C - start Atorvastatin 40 mg PO, Plavix 75 mg PO, ASA 81 mg - consider 30 day event monitoring at discharge if abnormalities noted on telemetry (3) Anemia of chronic disease: Code(s): D63.8 - Anemia in other chronic diseases classified elsewhere Status: Chronic Assessment and Plan: Hemoglobin 11.5 upon admission on 08/27. Previous baseline appears to be more so around 8. Previous lab work available from January of 2025. MCV/MCHC within normal limits. - transfuse if less than 7 - monitor (4) Hypertension: Qualifiers: Hypertension type: primary hypertension Qualified Code(s): I10 - Essential (primary) hypertension Code(s): I10 - Essential (primary) hypertension Status: Chronic Assessment and Plan: - chronic, currently 107/72, stable - continue home medications - monitor Plan Diet: NPO GI Prophylaxis: N/a DVT Prophylaxis: SCDs IV fluids: 2L Lines/Tubes: pIV Code Status: full code Prior Studies I have reviewed the following patient records and this information was taken into consideration when formulating the assessment and plan.: previous labs, previous ER visits, previous hospitalizations and previous clinic visits Time Spent with Patient Time with patient: less than 45 minutes Hospitalist MIPS Advance Care Plan I have confirmed that the patient's Advanced Care Plan is present, code status is documented, or surrogate decision maker is listed in patient medical record.: Yes Medication Reconciliation I have utilized all available resources to obtain, update and review the patients current medications (includes all prescriptions, OTC, herbals, cannabis, and nutritional supplements).: Yes
--- NOTE | 2025-08-27 22:34 | WPCEDHO ---
ED Hand Off Checklist All vitals saved:yes IV Site documented:yes All med administrations documented:yes Triage Note Triage Note Pt to ed from [facility] at 08[facility]27[facility]25 [facility]:42 [facility] for increasing weakness over the last week. endorses BUE pain. Had imaging done at [facility] and this was all normal. Allergies ciprofloxacin Allergy (Verified 08/27/25 18:20) Unknown metronidazole (From Flagyl) Allergy (Verified 08/27/25 18:20) Unknown Current Diagnoses Anemia in other chronic diseases classified elsewhere (08/27/25) Type 2 diabetes mellitus with hyperosmolarity without nonketotic hyperglycemic-hyperosmolar coma (NKHHC) (08/27/25) Essential (primary) hypertension (08/27/25) Other symptoms and signs involving the musculoskeletal system (08/27/25) Family History (Last Reviewed 08/27/25 @ 20:43 by Keily Rodriguez APRN) Other Unknown family medical history Active Medications including assessments/comments Insulin Human Regular 100 (units/ Sodium Chloride) 100 mls @ 3.8 mls/hr IV CONT .Q24H GARRETT; Protocol Last Titration: 08/27/25 21:56 Dose: 3.8 units/hr, 3.8 mls/hr Documented By: SRW Co-signed By: TATIANA Infusion/Titration Document 08/27/25 21:56 SRW (Rec: 08/27/25 22:01 SRW [id number]) Co-signed By Claritza Ferguson RN Intake IV Site Peripheral Access Right Forearm Intake 3.8 Cumulative Intake ( 9.2 bag) Cumulative Intake ( 9.2 Rx) Container Volume 90.8 Waste Amount 0 Dosing Dose Rate 3.8 Infusion Rate 3.8 Cumulative Dose 9.2 Increase/Decrease Increased Elapsed Time Elapsed Time ( 2h 52m minutes) MAR IV Insulin Document 08/27/25 21:56 SRW (Rec: 08/27/25 22:01 SRW [id number]) Co-signed By Claritza Ferguson RN Reason for Administration IV Insulin Infusion DKA Protocol - Reason for Administration Blood Glucose Random Glucose Yes Ordered IV Insulin Action/Checks IV Insulin Action Titrated - Blood Glucose Verified and Dose Adjusted per Guidelines DKA Trends Insulin Infusion - Blood Glucose Trend Downward DKA Trends Blood Glucose No Decreased by 150 mg/ dl or Greater in One Hour Titration: 08/27/25 20:16 Dose: 2.3 units/hr, 2.3 mls/hr Documented By: DEANN Co-signed By: MARIA Infusion/Titration Document 08/27/25 20:16 SRW (Rec: 08/27/25 20:18 W [id number]) Co-signed By Marisa Akbar RN Intake IV Site Peripheral Access Right Forearm Intake 5.4 Cumulative Intake ( 5.4 bag) Cumulative Intake ( 5.4 Rx) Container Volume 94.6 Waste Amount 0 Dosing Dose Rate 2.3 Infusion Rate 2.3 Cumulative Dose 5.4 Increase/Decrease Decreased Elapsed Time Elapsed Time ( 1h 12m minutes) MAR IV Insulin Document 08/27/25 20:16 SRW (Rec: 08/27/25 20:18 W [id number]) Co-signed By Marisa Akbar RN Reason for Administration IV Insulin Infusion DKA Protocol - Reason for Administration Blood Glucose Random Glucose Yes Ordered IV Insulin Action/Checks IV Insulin Action Titrated - Blood Glucose Verified and Dose Adjusted per Guidelines DKA Trends Insulin Infusion - Blood Glucose Trend Downward DKA Trends Blood Glucose Yes Decreased by 150 mg/ dl or Greater in One Hour Admin: 08/27/25 19:04 Dose: 4.5 units/hr, 4.5 mls/hr Documented By: HOLLY Co-signed By: RENETTA Infusion/Titration Document 08/27/25 19:04 TLB (Rec: 08/27/25 19:04 TLB [id number]) Co-signed By Nhi Emery RN Intake IV Site Peripheral Access Right Forearm Container Volume 100 Waste Amount 0 Dosing Dose Rate 4.5 Infusion Rate 4.5 Increase/Decrease Started Elapsed Time Elapsed Time ( 0m minutes) MAR IV Insulin Document 08/27/25 19:04 TLKeyanna (Rec: 08/27/25 19:04 HOLLY [id number]) Co-signed By Nhi Emery RN Reason for Administration IV Insulin Infusion DKA Protocol - Reason for Administration IV Insulin Action/Checks IV Insulin Action Initiated Administered/Completed Medications Discontinued Medications Folic Acid (Folic Acid 1 Mg/0.2 Ml Inj) 1 mg IV PUSH ONCE ONE Stop: 08/27/25 16:48 Last Admin: 08/27/25 17:26 Dose: 1 mg Documented By: HOLLY Sodium Chloride (Normal Saline Iv) 1,000 mls @ 500 mls/hr IV CONT .Q2H STA Stop: 08/27/25 18:02 Last Infusion: 08/27/25 18:21 Dose: Infused Documented By: Admin: 08/27/25 16:21 Dose: 500 mls/hr Documented By: RENETTA Sodium Chloride (Normal Saline Iv) 992 mls @ 992 mls/hr 20 ml/kg infuse over 1 hr (992 ml) IV CONT .Q1H STA Stop: 08/27/25 19:04 Last Infusion: 08/27/25 19:21 Dose: Infused Documented By: Admin: 08/27/25 18:23 Dose: 992 mls/hr Documented By: RENETTA Insulin Human Regular (Insulin Human Regular (*Bkc) 100 Units/Ml) 7.4 units 0.15 units/kg (7.4 units) IV PUSH ONCE ONE Stop: 08/27/25 18:06 Last Admin: 08/27/25 18:20 Dose: 7.4 units Documented By: RENETTA Co-signed By: GEORGINA Thiamine HCl (Thiamine Hcl 200 Mg/2 Ml Vial) 100 mg IV PUSH ONCE ONE Stop: 08/27/25 16:48 Last Admin: 08/27/25 17:25 Dose: 100 mg Documented By: HOLLY Interventions/Assessments General Assessment Start: 08/27/25 15:36 Freq: Status: Active Protocol: Document 08/27/25 15:48 RENETTA (Rec: 08/27/25 15:54 RENETTA [id number]) GA Neurological Assessment Level of Alert,Awake Consciousness Arousable to Verbal Orientation Oriented to Person,Oriented to Place,Oriented to Time Behavior Appropriate,Cooperative Patient Able to Comprehend Comprehension Memory Description Intact IV / Saline Lock, Insert Start: 08/27/25 15:36 Freq: Status: Active Protocol: Document 08/27/25 15:54 RENETTA (Rec: 08/27/25 15:54 RENTETA [id number]) IV Assessment Peripheral Access Right Forearm IV Catheter Access Initiated IV Insertion Date 08/27/25 IV Insertion Time 15:54 Catheter Gauge 20 Ultrasound Used for No Placement IV Site Assessment WNL IV Care and WNL Maintenance Last Vital Signs Temperature 98.6 F 08/27/25 15:48 Pulse Rate 79 08/27/25 17:26 Respiratory Rate 17 08/27/25 17:26 Pulse Oximetry 100 08/27/25 17:26 Blood Pressure 107/72 08/27/25 17:26 Blood Pressure Mean 83 08/27/25 17:26 Oxygen Delivery Room Air 08/27/25 15:42 Weight 49.6 kg 08/27/25 15:42 Last Result - Abnormals Only Hgb 11.5 g/dL (12.0-15.0) L D 08/27/25 15:58 Hct 35.8 % (37.0-47.0) L 08/27/25 15:58 MPV 12.6 fl (7.4-10.4) H 08/27/25 15:58 Neut % (Auto) 74.1 % (45.5-73.1) H 08/27/25 15:58 Lymph % (Auto) 17.9 % (18.3-44.2) L 08/27/25 15:58 Abs Immat Gran (auto) 0.04 K/mm3 (0.00-0.031) H 08/27/25 15:58 Absolute Neuts (auto) 6.9 K/mm3 (1.3-6.7) H 08/27/25 15:58 ABG pH 7.457 (7.350-7.450) H 08/27/25 16:17 ABG pO2 101.7 mmHg (80.0-100.0) H 08/27/25 16:17 ABG HCO3 26.4 mEq/l (22.0-26.0) H 08/27/25 16:17 Sodium 128 mmol/L (137-145) L 08/27/25 19:53 Chloride 91 mmol/L (98-107) L 08/27/25 19:53 BUN 38 mg/dL (7-17) H 08/27/25 19:53 Creatinine 1.08 mg/dL (0.7-1.0) H 08/27/25 19:53 Estimated GFR 52 (59-) L 08/27/25 19:53 Glucose 537 mg/dL (65-110) H* 08/27/25 19:53 POC Capillary Glucose 376 mg/dl (65-105) H 08/27/25 21:26 Calcium 10.3 mg/dL (8.4-10.2) H 08/27/25 19:53 Alkaline Phosphatase 326 U/L (38-126) H 08/27/25 17:24 C-Reactive Protein 1.9 mg/dL (<1.0) H 08/27/25 15:58 Beta-Hydroxybutyrate/Acetoacetate 0.53 mmol/L (0.02-0.27) H 08/27/25 15:58 Most Recent Suicide Severity Rating Suicide Severity Rating NO RISK INDICATED 08/27/25 15:42
[2025-08-27 22:47] LABS: MRSA (PCR) DETECTED (NOT DETECTE)
--- NOTE | 2025-08-27 23:06 | WNDPHOTO ---
PHOTO ONLY - See Nursing Notes and/ or assessments for documentation.
--- NOTE | 2025-08-27 23:15 | ADMGEN ---
This patient, Hattie Peralta, was admitted to Intensive Care Unit-5. Patient/family oriented to hospital policies and general routines including ID bracelet, bed and alarms, visiting hours, pain management, procedures, bathroom and other care routines, personal items, smoking policy, room service/diet, and visiting hours. Information on how to activate the Rapid Response Team has been discussed. Patient/Family are encouraged to report perceived risks to care and to ask questions if they do not understand what they are told or what they should do.
[2025-08-27] MEDS: SODIUM CHLORIDE 0.9% IV 1,000 ML 150 ML IV CONT (23:28)
[2025-08-27 23:42] LABS: Anion Gap 10 mmol/L (4-12); Blood Urea Nitrogen 37 mg/dL (7-17); Calcium 10.8 mg/dL (8.4-10.2); Carbon Dioxide 24 mmol/L (22-30); Chloride 97 mmol/L (98-107); Estimated CRCL calculation 38 ml/min; Estimated Glomerular Filt Rate 59; Glucose 265 mg/dL (65-110); Magnesium 1.8 mg/dL (1.6-2.3); Potassium 4.1 mmol/L (3.4-5.0); Sodium 131 mmol/L (137-145)
[2025-08-28] VITALS (19 sets, daily range): BP systolic 96–127; BP diastolic 67–100; PULSE 69–93; RESP 10–20; TEMP 35.8–37.1; O2SAT 97–100; BMI 15.1
--- NOTE | 2025-08-28 | ECHO_ITS ---
Patient Info Name: Hattie Peralta Age: 54 years : 1970 Gender: Female Ht: 66 in Wt: 109 lbs BSA: 1.51 m2 HR: 82 bpm BP: 127 / 83 mmHg Technical Quality: Fair Exam Date: 08/28/2025 9:20 AM Patient Status: I Admit Date: 08/27/2025 Exam Type: CA echo dop bubble study w con Complete two-dimentional, color flow and Doppler transthoracic echocardiogram is performed with agitated saline and with contrast to opacify the left ventricle and to improve the delineation of the left ventricle endocardial borders. Staff Referring Physician: Keily Rodriguez Cognos Analyst: Hailey Ferrara Attending Provider: Isai Rosado MD Contrast/Agitated Saline Contrast/Ag. Saline: Definity Amount: 2.00 ml Existing IV Access: Yes Contrast/Ag. Saline: Agitated Saline Amount: 10.00 ml Existing IV Access: Yes Summary 1. Agitated saline study did not demonstrate any [id number] shunt. 2. There is normal biventricular size and systolic function. 3. There are no significant valvular abnormalities. Left Ventricle The left ventricle is normal in size and systolic function. The left ventricular ejection fraction is visually estimated to be 60-65%. Right Ventricle The right ventricle is normal in size and systolic function. Left Atria The left atrium is normal size. Right Atria The right atrium is normal size. Atrial Septum Agitated saline study did not demonstrate any [id number] shunt. Aortic Valve The aortic valve is trileaflet and opens well. There is no aortic regurgitation. Pulmonic Valve The pulmonic valve is not well visualized. Mitral Valve The mitral valve is normal. There is no mitral regurgitation. Tricuspid Valve The tricuspid valve is normal. There is no tricuspid regurgitation. Pericardium/Pleural Pericardium is normal in appearance with no evidence for significant pericardial effusion. Inferior Vena Cava Normal inferior vena cava with <50% collapse upon inspiration consistent with elevated right atrial pressure, 8 mmHg. Aorta The aortic root at the level of the sinus of Valsalva measures 2.7 cm in diameter. Left Ventricular Outflow Tract Name Value Normal LVOT 2D LVOT Diameter 2.0 cm LVOT Doppler LVOT Peak Velocity 73 cm/s LVOT Peak Gradient 2 mmHg LVOT Mean Gradient 1 mmHg LVOT VTI 15 cm LVOT VTI/AV VTI Ratio 0.7 LVOT Stroke Volume 46 ml LVOT CO 4.4 l/min LVOT CI 2.9 l/min/m2 Pulmonic Valve Name Value Normal PV Doppler PV Peak Velocity 90 cm/s PV Peak Gradient 3 mmHg Mitral Valve Name Value Normal MV Doppler MV Peak Gradient 8 mmHg MV Mean Gradient 3 mmHg MV Area (Cont Eq VTI) 2.6 cm2 MV Diastolic Function MV E Peak Velocity 53 cm/s MV A Peak Velocity 72 cm/s MV E/A 0.7 MV Decel Time (PW) 118 ms MV Annular TDI MV E/e' (Septal) 14.2 MV E/e' (Lateral) 9.1 MV E/e' (Average) 11.7 Tricuspid Valve Name Value Normal TV Regurgitation Doppler TR Peak Velocity 156 cm/s TR Peak Gradient 6 mmHg Estimated PAP/RSVP RA Pressure 8 mmHg <=5 PA Systolic Pressure 18 mmHg <36 RV Systolic Pressure 18 mmHg <36 TV Annular TDI TV Lateral Magda s' Velocity 15.2 cm/s >=9.5 Aortic Valve Name Value Normal AV Doppler AV Peak Velocity 109 cm/s AV Peak Gradient 5 mmHg AV Mean Gradient 3 mmHg AV VTI 21 cm AV Area (Cont Eq VTI) 2.2 cm2 >=3.0 AV Area (Cont Eq Mac) 2.0 cm2 AV DI (Mac) 0.66 AV Regurgitation 2D LVOT Area 3.0 cm2 Ventricles Name Value Normal LV Dimensions 2D/MM IVS Diastolic Thickness (2D) 0.8 cm 0.6-1.0 LVID Diastole (2D) 3.5 cm 3.8-5.2 LVIW Diastolic Thickness (2D) 0.8 cm 0.6-0.9 LVID Systole (2D) 1.7 cm 2.2-3.5 LVOT Diameter 2.0 cm LV Mass (2D Cubed) 77.59 g 67.00-162.00 LV Mass Index (2D Cubed) 52 g/m2 43-95 Relative Wall Thickness (2D) 0.49 <=0.42 LV Fractional Shortening/Ejection Fraction 2D/MM LV Fractional Shortening (2D) 50 % 27-45 LV EF (2D Teichholz) 82 % LV Diastolic Volume (4C MOD) 57 ml LV EF (4C MOD) 65 % LV Diastolic Volume (2C MOD) 62 ml LV EF (2C MOD) 69 % LV Diastolic Volume (BP MOD) 60 ml 46-106 LV Diastolic Volume Index (BP MOD) 40 ml/m2 29-61 LV Systolic Volume (BP MOD) 20 ml 14-42 LV Systolic Volume Index (BP MOD) 13 ml/m2 8-24 LV EF (BP MOD) 67 % 54-74 LV Diastolic Length (4C) 6.7 cm LV Systolic Length (4C) 5.5 cm LV Stroke Volume (4C MOD) 37 ml Atria Name Value Normal LA Dimensions LA Volume (4C A-L) 15 ml LA Volume (BP A-L) 15 ml Report Signatures
[2025-08-28] MEDS: KCL 20 MEQ/D5/0.45% SOD CHL 1,000 ML 150 ML IV CONT (00:03)
[2025-08-28] MEDS: GABAPENTIN 300 MG CAPSULE PO ×3 (00:45→22:04)
[2025-08-28] MEDS: INSULIN GLARGINE (*BKC) 100 UNITS/ML 8 UNITS SUB-Q (00:46)
[2025-08-28 04:26] LABS: Hematocrit 33.5 % (37.0-47.0); Hemoglobin 10.9 g/dL (12.0-15.0); Immature Granulocyte Percent A 0.6 % (0-0.5); Lymphocytes Absolute Auto 1.98 K/mm3 (0.9-3.2); Mean Corpuscular HGB Conc 32.5 g/dl (32-36); Mean Corpuscular Hemoglobin 26.7 pg (26-34); Mean Corpuscular Volume 82.1 fl (80-100); Nucleated Red Blood Cells Absolute Auto 0.000 K/mm3 (0.0-0.012); Nucleated Red Blood Cells Perc 0.0 % (0.0-0.2); Platelet Count Result 195 k/mm3 (150-375); Red Blood Count 4.08 M/mm3 (4.2-5.4); White Blood Count 8.5 K/mm3 (4.5-10.0)
[2025-08-28 05:06] LABS: Alanine Aminotransferase 24 U/L (6-35); Albumin Level 4.0 g/dL (3.5-5.1); Alkaline Phosphatase 225 U/L (38-126); Anion Gap 8 mmol/L (4-12); Aspartate Amino Transferase 30 U/L (14-36); Bilirubin,Total 0.7 mg/dL (0.2-1.3); Blood Urea Nitrogen 35 mg/dL (7-17); Calcium 10.5 mg/dL (8.4-10.2); Carbon Dioxide 27 mmol/L (22-30); Chloride 96 mmol/L (98-107); Cholesterol 206 mg/dL (0-200); Estimated CRCL calculation 40 ml/min; Estimated Glomerular Filt Rate > 60; Glucose 288 mg/dL (65-110); HDL Direct 27 mg/dL; Magnesium 1.7 mg/dL (1.6-2.3); Potassium 4.4 mmol/L (3.4-5.0); Sodium 131 mmol/L (137-145); Total Protein 7.8 g/dL (6.3-8.2); Triglycerides 253 mg/dL (<150)
[2025-08-28 08:18] LABS: Anion Gap 9 mmol/L (4-12); Blood Urea Nitrogen 33 mg/dL (7-17); Calcium 10.6 mg/dL (8.4-10.2); Carbon Dioxide 23 mmol/L (22-30); Chloride 97 mmol/L (98-107); Estimated CRCL calculation 42 ml/min; Estimated Glomerular Filt Rate > 60; Glucose 328 mg/dL (65-110); Potassium 4.7 mmol/L (3.4-5.0); Sodium 129 mmol/L (137-145)
[2025-08-28] MEDS: INSULIN ASPART (*BKC) 100 UNITS/ML SUB-Q ×4 (09:44→22:03)
[2025-08-28] MEDS: INSULIN GLARGINE (*BKC) 100 UNITS/ML 25 UNITS SUB-Q (09:44)
[2025-08-28] MEDS: MUPIROCIN 2% OINT 22 GM TUBE 1 APPLIC EACH NARE ×2 (09:52→22:46)
[2025-08-28] MEDS: CLOPIDOGREL BISULFATE 75 MG TABLET PO (09:52)
[2025-08-28] MEDS: ATORVASTATIN 40 MG TABLET PO (09:52)
[2025-08-28] MEDS: ASPIRIN 81 MG ENTERIC TABLET PO (09:52)
[2025-08-28] MEDS: PERFLUTREN LIPID MICROSPHERES 1.5 ML VIAL DILUTED TO 10 ML TOTAL VOLUME IV PUSH (10:42)
--- NOTE | 2025-08-28 10:42 | IVDEFINITY ---
Prior to administration of IV Definity the patient was educated on the risks and benefits of the imaging enhancing agent including potential adverse side effects. The patient verbalized understanding. Allergies were verified. No exclusion criteria were identified and at least one of the following inclusion criteria were met: 1) physician request, 2) patient technically difficult to image (per the [place] [employer] guidelines of two or more segments not discernable within the apical view), or 3) questionable left ventricular function. ?
[2025-08-28 11:20] LABS: Add Urine Microscopic? YES; Appearance Urine Cloudy (Clear); Glucose Urine UA 3+ mg/dL (Negative); Leukocyte Esterase Ur 1+ LEU/UL (Negative); Need Manual Microscopic Reviewed; Nitrate Urine Negative (Negative); Non Pathogenic Casts 0-2; Specific Grav Ur 1.022 (1.001-1.035)
--- NOTE | 2025-08-28 11:26 | P.CONIN_ITS ---
Assessment and Plan Assessment and plan (1) Hyperosmolar hyperglycemic state (HHS): Code(s): E11.00 - Type 2 diabetes mellitus with hyperosmolarity without nonketotic hyperglycemic-hyperosmolar coma (NKHHC) Status: Acute Assessment and Plan: patient consented with generalized weakness, found to have hyperglycemia with blood sugar of 806 in the ER, non-anion gap metabolic acidosis, CO2 was within normal limits. Patient was diagnosed with hyperosmolar hyperglycemic state - was given 1.5 L of IV fluids in the ER and started on insulin infusion per DKA protocol - shortly after arriving in the ICU, patient was transition to long-acting insulin and sliding scale insulin - this morning patient is blood sugars were elevated, I re-dosed her long- acting insulin Lantus and increase sliding scale insulin - patient does not take any diabetes medications at home according to her home meds - hemoglobin A1c is pending (2) Left arm weakness: Code(s): R29.898 - Other symptoms and signs involving the musculoskeletal system Status: Acute Assessment and Plan: appreciate Neurology evaluation, left arm dropped, OT is going to place her in a splint - CT brain was negative for intracranial abnormalities (3) Anemia of chronic disease: Code(s): D63.8 - Anemia in other chronic diseases classified elsewhere Status: Chronic Assessment and Plan: hemoglobin is stable at this time will continue to monitor (4) Hypertension: Qualifiers: Hypertension type: primary hypertension Qualified Code(s): I10 - Essential (primary) hypertension Code(s): I10 - Essential (primary) hypertension Status: Chronic Assessment and Plan: blood pressures are stable, will hold antihypertensives at this time Plan DVT prophylaxis: SCDs Stress ulcer prophylaxis: not indicated Nutrition: diabetic diet Code Status: full code Critical Care Time Spent: 46 minutes Due to a high probability of clinically significant, life threatening deterioration, the patient required my highest level of preparedness to intervene emergently and I personally spent this critical care time directly and personally managing the patient. This critical care time included obtaining a history; examining the patient; pulse oximetry; ordering and review of studies; arranging urgent treatment with development of a management plan; evaluation of patient's response to treatment; frequent reassessment; and discussions with other providers. It was exclusive of separately billable procedures and treating other patients and teaching time. Please see Assessment and Plan section and the rest of the note for further information on patient assessment and treatment This dictation may have been done utilizing a voice recognition system. Attempts have been made to correct errors. However, there may be uncorrected grammatical, spelling, and recognitions errors present. Breaker Tender Consult Note Consult date: 08/28/25 Reason for consult: Hyperosmolar hyperglycemic state, hyperglycemia, weakness HPI: Hattie Peralta is a 54 year old female in significant past medical history of polysubstance abuse, anxiety, depression, diabetes,-Nataly, dementia, alcoholic cirrhosis of the liver with ascites, anemia of chronic disease, wheelchair dependent, h/o seizures, GERD, presented to the here from [facility] on 08/27/2025 for further evaluation of generalized weakness as well as focal weakness. she complained of some changes in his speech, left upper extremity weakness around Thanksgiving.Speech changes more so appreciated by a family members who reported these findings to staff at her facility, however the did not feel there was anything significant . In the ER she was found to have a blood sugars of 806, no anion gap, CO2 was 28, beta hydroxybutyrate was 0.53. Sodium of 121, BUN and creatinine 44 and 1.08, calcium of 10.3. LFTs are within normal limits. Patient was diagnosed with hyperosmolar hyperglycemic state, was given 1.5 L IV fluids in the ER and started on insulin infusion per DKA protocol and transferred the patient to the ICU for further management CT brain on admission did not show any acute intracranial abnormality Chest x-ray on admission with no acute cardiopulmonary disease 08/28/2025: Patient seen and examined the ICU this morning, is awake, alert, oriented to place and date of . Denies any nausea, vomiting, chest pain, shortness of breath. She complains of mild abdominal discomfort. She states she is wheelchair-bound, smokes 4-5 cigarettes a day, no alcohol or any other illicit drug use. Patient states she feels better, she was transition to long- acting insulin Lantus and sliding scale insulin overnight. Review of Systems 2 Review of Systems: All systems reviewed & are unremarkable except as noted in HPI and below PMFSH Past Medical History Medical History Wheelchair dependent Chronic constipation Hypertension Seizures Polysubstance abuse Anxiety and depression Diabetes mellitus GERD (gastroesophageal reflux disease) Emphysema lung Peripheral neuropathy 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 Anemia of chronic disease Surgical History Surgical History Status post cataract extraction of both eyes with insertion of intraocular lens (09/2024) Family History Family History Other Unknown family medical history Social History Social History Smoking packs per day: 0.25 Smoking cigarettes per day: 5.0 Years smoked: 40 Smoking pack-years: 10.00 Smoking status: Current every day smoker Tobacco type: cigarettes Alcohol intake: former Substance use: never Substance use type: crack/cocaine and prescription drug Lack of Transportation: No Lack of Food: Never True Current Housing: I Have Housing Concerned About Future Housing: No Difficulty Paying Gas/Electric Bills: No Difficulty Paying for Meds: No Currently Unemployed: No Education: Grade School Difficulty w/ Childcare or Family Care: No [facility] Additional living arrangements comments: [facility] Spiritual care concerns: No Meds Home Medications and Allergies Home Medications ?Medication ?Instructions ?Recorded ?Confirmed ?Type bisacodyl 5 mg tablet,delayed 5 mg PO DAILY PRN consti pation 02/14/25 08/27/25 History release (Alophen (bisacodyl)) gabapentin 300 mg capsule 300 mg PO BID 02/14/2508/27 History lactulose 10 gram/15 mL oral 10 g PO BID 02/14/2504/14 History solution (Constulose) lidocaine 5 % topical patch 2 patch topical DAILY 01/2008/27/25 History multivitamin-iron 9 mg-folic acid 1 tablet PO DAILY 08/27/25 History 400 mcg-calcium and minerals tablet (Thera-M) pantoprazole 40 mg granules 40 mg PO DAILY 02/14/25 History delayed-release for susp in packet (Protonix) thiamine mononitrate (vit B1) 100 100 mg PO DAILY 01/2008/27/25 History mg tablet (Vitamin B-1 (mononitrate)) tramadol 50 mg tablet 50 mg PO Q6H PRN pain 08/27/25 History amlodipine 5 mg tablet (Norvasc) 5 mg PO DAILY 30 days #30 tabs 02/18/25 08/27/25 Rx furosemide 20 mg tablet 40 mg (2 x 20 mg) PO DAILY 3 0 days 02/18/25 08/27/25 Rx #0 tabs metoprolol tartrate 25 mg tablet 12.5 mg (1/2 x 25 mg) PO BID 30 02/18/25 08/27/25 Rx days #30 tabs spironolactone 50 mg tablet 100 mg (2 x 50 mg) PO QAM 30 days 02/18/25 08/27/25 Rx (Aldactone) #60 tabs Allergies Allergy/AdvReac Type Severity Reaction Status Date / Time ciprofloxacin Allergy Unknown Verified 08/27/25 23:37 metronidazole (From Flagyl) Allergy Unknown Verified 08/27/25 23:37 Vital Signs Vital Signs - 24 hr 08/27/25 15:42 08/27/25 15:48 08/27/25 17:26 Temperature 98.6 F Pulse Rate 81 79 Respiratory Rate 16 17 Blood Pressure 115/81 107/72 Pulse Oximetry 97 100 Oxygen Delivery Room Air Oxygen Flow Rate 08/27/25 20:00 08/27/25 21:14 08/27/25 23:16 Temperature 98.0 F Pulse Rate 79 78 76 Respiratory Rate 18 19 14 Blood Pressure 98/63 L 108/68 121/74 Pulse Oximetry 100 100 91 Oxygen Delivery Oxygen Flow Rate 08/27/25 23:30 08/28/25 00:00 08/28/25 00:00 Temperature 98.0 F Pulse Rate 75 73 Respiratory Rate 15 Blood Pressure 115/79 Pulse Oximetry 99 99 Oxygen Delivery Nasal Cannula Oxygen Flow Rate 2 08/28/25 01:00 08/28/25 02:00 08/28/25 02:00 Temperature Pulse Rate 71 72 72 Respiratory Rate 13 14 Blood Pressure 106/73 108/70 Pulse Oximetry 99 99 Oxygen Delivery Oxygen Flow Rate 08/28/25 03:00 08/28/25 04:00 08/28/25 04:00 Temperature Pulse Rate 73 72 Respiratory Rate 11 L Blood Pressure 107/75 Pulse Oximetry 100 99 Oxygen Delivery Room Air Oxygen Flow Rate 08/28/25 04:00 08/28/25 05:00 08/28/25 06:00 Temperature 97.4 F L 97.4 F L Pulse Rate 69 70 78 Respiratory Rate 10 L 11 L 12 Blood Pressure 120/79 116/74 127/83 Pulse Oximetry 99 100 98 Oxygen Delivery Oxygen Flow Rate 08/28/25 06:00 08/28/25 07:00 08/28/25 09:00 Temperature 97.9 F Pulse Rate 78 75 83 Respiratory Rate 11 L 13 Blood Pressure 121/72 115/81 Pulse Oximetry 99 100 Oxygen Delivery Oxygen Flow Rate 08/28/25 10:00 08/28/25 11:00 Temperature 98.1 F 97.6 F Pulse Rate 84 85 Respiratory Rate 18 14 Blood Pressure 117/88 124/93 H Pulse Oximetry 100 99 Oxygen Delivery Oxygen Flow Rate Exam 2 Narrative: General: frail and cachectic looking female in no acute distress HEENT:? pupils equal and reactive, sclera is clear, moist oral mucosa Neck:? supple Respiratory:? clear to auscultation bilaterally, no wheezing, adequate air entry Cardiac:? S1-S2 is normal, regular rate and rhythm Abdomen:? soft, nondistended, normoactive bowel sounds, periumbilical tenderness to palpation Extremities:? palpable pedal pulses, no edema Neuro:? patient is awake, alert, answers to questions, slow to respond, oriented to place and date of , follows simple commands in all extremities, motor strength upper extremities 3/5, lower extremity motor strength 2/5 Skin:? maceration on her perianal area Psych:? normal mentation, depressed affect Results Labs 08/28/25 04:20 08/28/25 07:52 Labs: Short CBC 08/27/25 08/28/25 Range/Units 15:58 04:20 WBC 9.3 8.5 (4.5-10.0) K/mm3 Hgb 11.5 L D 10.9 L (12.0-15.0) g/dL Hct 35.8 L 33.5 L (37.0-47.0) % Plt Count 221 195 (150-375) k/mm3 BMP 08/27/25 08/27/25 08/27/25 17:24 19:53 23:25 Sodium 121 L 128 L 131 L Potassium 5.0 4.0 4.1 Chloride 84 L 91 L 97 L Carbon Dioxide 28 28 24 BUN 44 H D 38 H 37 H Creatinine 1.08 H 1.08 H 0.97 Glucose 806 H* 537 H* 265 H Calcium 10.3 H 10.3 H 10.8 H 08/28/25 08/28/25 04:20 07:52 Sodium 131 L 129 L Potassium 4.4 4.7 Chloride 96 L 97 L Carbon Dioxide 27 23 BUN 35 H 33 H Creatinine 0.92 0.87 Glucose 288 H 328 H Calcium 10.5 H 10.6 H Liver Function 08/27/25 08/28/25 Range/Units 17:24 04:20 Total Bilirubin 0.6 0.7 (0.2-1.3) mg/dL AST 36 30 (14-36) U/L ALT 30 24 (6-35) U/L Alkaline Phosphatase 326 H 225 H (38-126) U/L Albumin 4.3 4.0 (3.5-5.1) g/dL Urine 08/28/25 Range/Units 09:53 Urine Color Yellow (Yellow) Urine Appearance Cloudy H (Clear) Urine pH 6.0 (5.0-9.0) Ur Specific [place] 1.022 (1.001-1.035) Urine Protein Negative (Negative) mg/dL Urine Glucose (UA) 3+ H (Negative) mg/dL Quality VTE Prophylaxis VTE prophylaxis: mechanical ordered Hospitalist MIPS Advance Care Plan I have confirmed that the patient's Advanced Care Plan is present, code status is documented, or surrogate decision maker is listed in patient medical record.: Yes Medication Reconciliation I have utilized all available resources to obtain, update and review the patients current medications (includes all prescriptions, OTC, herbals, cannabis, and nutritional supplements).: Yes
--- NOTE | 2025-08-28 12:07 | WPDNEURCNPN ---
Assessment and Plan Assessment and plan (1) Left wrist drop: Code(s): M21.332 - Wrist drop, left wrist Status: Acute Assessment and Plan: this appears to the new finding. I do not see any weakness in the right upper or either lower limbs. She will require a splint to keep her wrist partially extended and this can be done by the occupational therapist. She required EMG nerve can study of the upper limbs with attention the left upper limb in about 4 weeks or so. Differential diagnosis the condition will include a radial neuropathy or so-called Thursday night palsy however she does not think that she slept on her arm with the head again some heart object. The differential diagnosis include possibility of lower back a plexopathy. Given the risk factors she is also scheduled for MRI of the brain and I think that certainly would be a reasonable testing. Carotid Doppler study is also recommended. Last LDL was 101. She will require some follow-up. (2) History of alcoholism: Code(s): F10.21 - Alcohol dependence, in remission Status: Acute Assessment and Plan: The patient is a alf and apparently she is no longer drinking. Also history of polysubstance abuse. There is a remote history of seizure disorder but she is not on any anticonvulsant at this time. (3) Hypertension: Qualifiers: Hypertension type: primary hypertension Qualified Code(s): I10 - Essential (primary) hypertension Code(s): I10 - Essential (primary) hypertension Status: Chronic (4) Hyperosmolar hyperglycemic state (HHS): Code(s): E11.00 - Type 2 diabetes mellitus with hyperosmolarity without nonketotic hyperglycemic-hyperosmolar coma (NKHHC) Status: Acute Assessment and Plan: This appears the main reason why she was brought to the hospital besides the fact that she has complaints of weakness in the arms predominantly the left wrist drop. (5) Alcoholic cirrhosis of liver with ascites: Code(s): K70.31 - Alcoholic cirrhosis of liver with ascites Status: Acute Assessment and Plan: I noted that she has had aspiration of peritoneal fluid in the past. Been evaluated by disc pad grinding machine feeder. (6) Anemia of chronic disease: Code(s): D63.8 - Anemia in other chronic diseases classified elsewhere Status: Chronic Plan As discussed above shall obtain occupational therapist assistance to make a spint for left wrist drop and after that can do EMG nerve can study of the left upper limb in 4 to 5 weeks time Consult date: 08/28/25 HPI: Hattie Peralta is a 54 year old female admitted to the hospital on 08/27/2025 with complaints of weakness in both arms. She is a resident of a nursing facility for care. She also had some slurring of the speech which the patient thought was due to dentures not feeling appropriately in her mouth. She has history of alcohol-induced cirrhosis and seizure disorder and hypertension. List of medications on admission were reviewed. She did have a CT scan head done in the emergency room which did not show any significant abnormalities however her serum glucose was very high at 805 6 and serum sodium was 121 creatinine is 1.08. Her last LDL was 101. Patient now complains of predominantly problem with the left upper limb. No history of prior stroke or symptoms similar to current once in the past. She denies any difficulty speech or swallowing. She denies any history of alcohol or drug abuse anymore. Upon admission she was thought to hyperosmolar hyperglycemic state and was admitted to intensive care unit. Although the previous history indicates history of seizure disorder however she is not on any anticonvulsant. She is currently on thiamine at that also in addition to aspirin and atorvastatin. 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 Anemia of chronic disease Surgical History Surgical History Status post cataract extraction of both eyes with insertion of intraocular lens (09/2024) Family History Family History Other Unknown family medical history Social History Social History Smoking packs per day: 0.25 Smoking cigarettes per day: 5.0 Years smoked: 40 Smoking pack-years: 10.00 Smoking status: Current every day smoker Tobacco type: cigarettes Alcohol intake: former Substance use: never Substance use type: crack/cocaine and prescription drug Lack of Transportation: No Lack of Food: Never True Current Housing: I Have Housing Concerned About Future Housing: No Difficulty Paying Gas/Electric Bills: No Difficulty Paying for Meds: No Currently Unemployed: No Education: Grade School Difficulty w/ Childcare or Family Care: No Living arrangements: alf Additional living arrangements comments: [facility] Spiritual care concerns: No Meds Home Medications and Allergies Home Medications ?Medication ?Instructions ?Recorded ?Confirmed ?Type bisacodyl 5 mg tablet,delayed 5 mg PO DAILY PRN constipation 02/14/25 08/27/25 History release (Alophen (bisacodyl)) gabapentin 300 mg capsule 300 mg PO BID 02/14/25 08/27/25 History lactulose 10 gram/15 mL oral 10 g PO BID 02/14/25 08/27/25 History solution (Constulose) lidocaine 5 % topical patch 2 patch topical DAILY 02/14/25 08/27/25 History multivitamin-iron 9 mg-folic acid 1 tablet PO DAILY 02/14/25 08/27/25 History 400 mcg-calcium and minerals tablet (Thera-M) pantoprazole 40 mg granules 40 mg PO DAILY 02/14/25 08/27/25 History delayed-release for susp in packet (Protonix) thiamine mononitrate (vit B1) 100 100 mg PO DAILY 02/14/25 08/27/25 History mg tablet (Vitamin B-1 (mononitrate)) tramadol 50 mg tablet 50 mg PO Q6H PRN pain 02/14/25 08/27/25 History amlodipine 5 mg tablet (Norvasc) 5 mg PO DAILY 30 days #30 tabs 02/18/25 08/27/25 Rx furosemide 20 mg tablet 40 mg (2 x 20 mg) PO DAILY 30 days 02/18/25 08/27/25 Rx #0 tabs metoprolol tartrate 25 mg tablet 12.5 mg (1/2 x 25 mg) PO BID 30 02/18/25 08/27/25 Rx days #30 tabs spironolactone 50 mg tablet 100 mg (2 x 50 mg) PO QAM 30 days 02/18/25 08/27/25 Rx (Aldactone) #60 tabs Allergies Allergy/AdvReac Type Severity Reaction Status Date / Time ciprofloxacin Allergy Unknown Verified 08/27/25 23:37 metronidazole (From Flagyl) Allergy Unknown Verified 08/27/25 23:37 Vital Signs Vital Signs - 24 hr 08/27/25 15:42 08/27/25 15:48 08/27/25 17:26 Temperature 98.6 F Pulse Rate 81 79 Respiratory Rate 16 17 Blood Pressure 115/81 107/72 Pulse Oximetry 97 100 Oxygen Delivery Room Air Oxygen Flow Rate 08/27/25 20:00 08/27/25 21:14 08/27/25 23:16 Temperature 98.0 F Pulse Rate 79 78 76 Respiratory Rate 18 19 14 Blood Pressure 98/63 L 108/68 121/74 Pulse Oximetry 100 100 91 Oxygen Delivery Oxygen Flow Rate 08/27/25 23:30 08/28/25 00:00 08/28/25 00:00 Temperature 98.0 F Pulse Rate 75 73 Respiratory Rate 15 Blood Pressure 115/79 Pulse Oximetry 99 99 Oxygen Delivery Nasal Cannula Oxygen Flow Rate 2 08/28/25 01:00 08/28/25 02:00 08/28/25 02:00 Temperature Pulse Rate 71 72 72 Respiratory Rate 13 14 Blood Pressure 106/73 108/70 Pulse Oximetry 99 99 Oxygen Delivery Oxygen Flow Rate 08/28/25 03:00 08/28/25 04:00 08/28/25 04:00 Temperature Pulse Rate 73 72 Respiratory Rate 11 L Blood Pressure 107/75 Pulse Oximetry 100 99 Oxygen Delivery Room Air Oxygen Flow Rate 08/28/25 04:00 08/28/25 05:00 08/28/25 06:00 Temperature 97.4 F L 97.4 F L Pulse Rate 69 70 78 Respiratory Rate 10 L 11 L 12 Blood Pressure 120/79 116/74 127/83 Pulse Oximetry 99 100 98 Oxygen Delivery Oxygen Flow Rate 08/28/25 06:00 08/28/25 07:00 08/28/25 09:00 Temperature 97.9 F Pulse Rate 78 75 83 Respiratory Rate 11 L 13 Blood Pressure 121/72 115/81 Pulse Oximetry 99 100 Oxygen Delivery Oxygen Flow Rate 08/28/25 10:00 08/28/25 11:00 Temperature 98.1 F 97.6 F Pulse Rate 84 85 Respiratory Rate 18 14 Blood Pressure 117/88 124/93 H Pulse Oximetry 100 99 Oxygen Delivery Oxygen Flow Rate Exam Const: General: cooperative and comfortable Other: Patient is very thin built and appears generally alert and awake and does try to cooperate certain extent. No aphasia or dysarthria. HENMT: Head: atraumatic Mouth: Yes oropharynx normal Eyes: Alignment and Position: alignment normal and position normal EOM: EOMs intact bilaterally Neck: Neck: normal visual inspection and supple Resp: Effort & Inspection: normal respiratory effort Cardio: Heart sounds: S1 normal heart sound present and S2 normal heart sound present Other: no carotid bruit Skin: General skin exam: normal color Neuro: Cranial nerves: Yes CN's II-XII intact bilaterally, Yes facial symmetry and Yes Midline tongue present Cognition (Neuro): normal cognition Speech: normal speech Motor exam (neuro): 5/5 motor strength present throughout ( left wrist drop noted) Sensory Exam: normal sensation Psych: Mental Status: mental status grossly normal Results Labs 08/28/25 04:20 08/28/25 07:52 Labs: Short CBC 08/27/25 08/28/25 Range/Units 15:58 04:20 WBC 9.3 8.5 (4.5-10.0) K/mm3 Hgb 11.5 L D 10.9 L (12.0-15.0) g/dL Hct 35.8 L 33.5 L (37.0-47.0) % Plt Count 221 195 (150-375) k/mm3 BMP 08/27/25 08/27/25 08/27/25 17:24 19:53 23:25 Sodium 121 L 128 L 131 L Potassium 5.0 4.0 4.1 Chloride 84 L 91 L 97 L Carbon Dioxide 28 28 24 BUN 44 H D 38 H 37 H Creatinine 1.08 H 1.08 H 0.97 Glucose 806 H* 537 H* 265 H Calcium 10.3 H 10.3 H 10.8 H 08/28/25 08/28/25 04:20 07:52 Sodium 131 L 129 L Potassium 4.4 4.7 Chloride 96 L 97 L Carbon Dioxide 27 23 BUN 35 H 33 H Creatinine 0.92 0.87 Glucose 288 H 328 H Calcium 10.5 H 10.6 H Liver Function 08/27/25 08/28/25 Range/Units 17:24 04:20 Total Bilirubin 0.6 0.7 (0.2-1.3) mg/dL AST 36 30 (14-36) U/L ALT 30 24 (6-35) U/L Alkaline Phosphatase 326 H 225 H (38-126) U/L Albumin 4.3 4.0 (3.5-5.1) g/dL Urine 08/28/25 Range/Units 09:53 Urine Color Yellow (Yellow) Urine Appearance Cloudy H (Clear) Urine pH 6.0 (5.0-9.0) Ur Specific [place] 1.022 (1.001-1.035) Urine Protein Negative (Negative) mg/dL Urine Glucose (UA) 3+ H (Negative) mg/dL
[2025-08-29] VITALS: BP 100/77; PULSE 90; RESP 18; TEMP 36.7; O2SAT 97
[2025-08-29 03:38] VITALS: BP 128/85; PULSE 82; RESP 18; TEMP 36.1; O2SAT 97
[2025-08-29 05:12] LABS: Hematocrit 33.8 % (37.0-47.0); Hemoglobin 10.8 g/dL (12.0-15.0); Immature Granulocyte Percent A 0.6 % (0-0.5); Lymphocytes Absolute Auto 1.87 K/mm3 (0.9-3.2); Mean Corpuscular HGB Conc 32.0 g/dl (32-36); Mean Corpuscular Hemoglobin 26.6 pg (26-34); Mean Corpuscular Volume 83.3 fl (80-100); Nucleated Red Blood Cells Absolute Auto 0.000 K/mm3 (0.0-0.012); Nucleated Red Blood Cells Perc 0.0 % (0.0-0.2); Platelet Count Result 211 k/mm3 (150-375); Red Blood Count 4.06 M/mm3 (4.2-5.4); White Blood Count 9.0 K/mm3 (4.5-10.0)
[2025-08-29 05:33] LABS: Alanine Aminotransferase 21 U/L (6-35); Albumin Level 3.8 g/dL (3.5-5.1); Alkaline Phosphatase 200 U/L (38-126); Anion Gap 4 mmol/L (4-12); Aspartate Amino Transferase 32 U/L (14-36); Bilirubin,Total 0.6 mg/dL (0.2-1.3); Blood Urea Nitrogen 34 mg/dL (7-17); Calcium 10.6 mg/dL (8.4-10.2); Carbon Dioxide 27 mmol/L (22-30); Chloride 96 mmol/L (98-107); Estimated CRCL calculation 48 ml/min; Estimated Glomerular Filt Rate > 60; Glucose 352 mg/dL (65-110); Magnesium 1.6 mg/dL (1.6-2.3); Potassium 4.6 mmol/L (3.4-5.0); Sodium 127 mmol/L (137-145); Total Protein 7.5 g/dL (6.3-8.2)
[2025-08-29 10:06] VITALS: PULSE 84; RESP 16; O2SAT 97
[2025-08-29] MEDS: CLOPIDOGREL BISULFATE 75 MG TABLET PO (10:06)
[2025-08-29] MEDS: ASPIRIN 81 MG ENTERIC TABLET PO (10:06)
[2025-08-29] MEDS: ATORVASTATIN 40 MG TABLET PO (10:06)
[2025-08-29] MEDS: GABAPENTIN 300 MG CAPSULE PO ×2 (10:06→22:33)
[2025-08-29] MEDS: INSULIN GLARGINE (*BKC) 100 UNITS/ML 25 UNITS SUB-Q (10:08)
[2025-08-29] MEDS: INSULIN ASPART (*BKC) 100 UNITS/ML 6 UNITS SUB-Q ×2 (10:22→12:47)
[2025-08-29] MEDS: MUPIROCIN 2% OINT 22 GM TUBE 1 APPLIC EACH NARE ×2 (10:26→22:34)
[2025-08-29] MEDS: INSULIN GLARGINE (*BKC) 100 UNITS/ML 20 UNITS SUB-Q ×2 (12:46→15:00)
[2025-08-29 14:57] VITALS: BP 106/69; PULSE 97; RESP 17; TEMP 36.5; O2SAT 96
[2025-08-29] MEDS: INSULIN ASPART (*BKC) 100 UNITS/ML 10 UNITS SUB-Q (15:01)
--- NOTE | 2025-08-29 15:04 | P.PNIM_ITS ---
Assessment and Plan Assessment and Plan (1) Hyperosmolar hyperglycemic state (HHS): Code(s): E11.00 - Type 2 diabetes mellitus with hyperosmolarity without nonketotic hyperglycemic-hyperosmolar coma (NKHHC) Status: Acute Assessment and Plan: History of type 2 diabetes on metformin for years per her family with no recent changes. Arrived to the emergency department significantly hyperglycemic at 806. Mild alkalosis noted on blood gas. Anion gap closed. Beta hydroxy 0.53. - no current evidence of hypovolemia and euvolemic on exam, BP upon arrival 115/81 - insulin gtt initiated on 08/27, NPO - DKA protocol and hypoglycemia initiated - odium corrected to 135 when accounting for glucose levels - BMP and renal function Q4H while on insulin gtt - home medications held - A1C ordered - museum educator and dietitian consulted - admitted to the ICU with leather coverer consulted (2) Left arm weakness: Code(s): R29.898 - Other symptoms and signs involving the musculoskeletal system Status: Acute Assessment and Plan: New deficits of significant left provider strongly weakness, intermittent dysarthria, and right peripheral vision deficits starting around Thanksgiving on 08/17. No previous history of CVA noted. Head CT noted remote appearing bi lateral basal ganglion lacunar infarcts with nonspecific focus of probable calcification of the last basal ganglia without midline shift or mass effect. - admission for observation and telemetry - not candidate for thrombolytics or thrombectomy due to timeframe - CXR unremarkable - neurology consulted - brain MRI w/wo ordered - echo w/Bubble ordered - neuro checks Qshift - PT/OT to eval and treat - monitor daily labs, add lipid panel and A1C - start Atorvastatin 40 mg PO, Plavix 75 mg PO, ASA 81 mg - consider 30 day event monitoring at discharge if abnormalities noted on telemetry (3) Anemia of chronic disease: Code(s): D63.8 - Anemia in other chronic diseases classified elsewhere Status: Chronic Assessment and Plan: Hemoglobin 11.5 upon admission on 08/27. Previous baseline appears to be more so around 8. Previous lab work available from January of 2025. MCV/MCHC within normal limits. - transfuse if less than 7 - monitor (4) Hypertension: Qualifiers: Hypertension type: primary hypertension Qualified Code(s): I10 - Essential (primary) hypertension Code(s): I10 - Essential (primary) hypertension Status: Chronic Assessment and Plan: - chronic, currently 107/72, stable - continue home medications - monitor Plan She arrived significantly hyperglycemic at 806 patient was seen by leather coverer started patient on DKA protocol with IV insulin and hydration. patient blood sugars have trended down compared to when she came in however still remains high, being monitored and her insulin is adjusted, patient complaints of left wrist drop and its remains in flexion position. 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 will have PT/OT evaluate the patient. Diet: NPO GI Prophylaxis: N/a DVT Prophylaxis: SCDs IV fluids: 2L Lines/Tubes: pIV Code Status: full code Subjective Date/time seen: 08/29/25 15:04 Interval history: Weakness H&P-Narrative: 54 y/o F with PMH of previous history of polysubstance abuse, anxiety/depression diabetes, emphysema, dementia, alcoholic cirrhosis of the liver with ascites, and anemia of chronic disease presents here with weakness. The patient presents here from [facility] on 08/27 for further evaluation of generalized weakness as well as focal weakness. She initially dev eloped changes in her speech that had been intermittent, left upper extremity weakness, and patient changes starting around (08/17). Speech changes more so appreciated by a family members who reported these findings to staff at her facility, however the did not feel there was anything significant. Per family, at they reported that they were going to obtain XRs of the patient's left wrist, however she did not undergo any further imaging or neurologic assessment. More so sent today for generalized weakness that has been progressive over the past week. She denies accompanying nausea, vomiting, diarrhea, fever, chills, polydipsia, polyuria. Patient and family deny any recent changes to her diabetes medications. She arrived significantly hyperglycemic at 806 patient was seen by leather coverer started patient on DKA protocol with IV insulin and hydration. patient blood sugars have trended down compared to when she came in however still remains high, being monitored and her insulin is adjusted, patient complaints of left wrist drop and its remains in flexion position. etiology is uncertain, patient denies any trauma, or injury, seen by the neurologist suspect a radial n europathy, recommended to apply a wrist splint, will monitor. will have PT/OT evaluate the patient. Review of Systems Review of Systems: All systems reviewed & are unremarkable except as noted in HPI and below Exam Narrative: Patient is comfortable, NAD HEENT: eyes are clear and none icteric LUNGS:CTA HEART: RR S1S2 ABD: BS+, Soft and nontender Lower extremities: no edema MS: left wrist in flexion. SKIN: nonjaundiced Neuro: grossly intact. Objective Data Vital Signs Vital Signs: Vital Signs - 24 hr 08/28/25 16:00 08/28/25 17:00 08/28/25 18:50 Temperature 37.0 C 36.7 C 36.4 C L Pulse Rate 86 88 90 Respiratory Rate 12 13 20 Blood Pressure 116/81 105/75 113/67 Pulse Oximetry 98 97 99 Oxygen Delivery 08/28/25 19:00 08/28/25 20:00 08/29/25 00:00 Temperature 36.6 C 36.7 C Pulse Rate 93 90 Respiratory Rate 18 18 Blood Pressure 96/67 L 100/77 Pulse Oximetry 100 97 Oxygen Delivery Room Air 08/29/25 03:38 08/29/25 10:06 08/29/25 14:57 Temperature 36.1 C L 36.5 C Pulse Rate 82 84 97 Respiratory Rate 18 16 17 Blood Pressure 128/85 106/69 Pulse Oximetry 97 97 96 Oxygen Delivery Room Air Intake/Output Intake/Output: Intake & Output 08/26/25 08/27/25 08/28/25 08/29/25 23:59 23:59 23:59 23:59 Intake Total 2004.3 565.8 360 Output Total 300 300 Balance 2004.3 265.8 60 Meds/Results Medications: Active Medications Generic Name Dose Route Start Last Admin Trade Name Freq PRN Reason Stop Dose Admin Aspirin 81 mg 08/28/25 09:00 08/29/25 10:06 Aspirin 81 Mg Enteric Tablet PO 81 mg QAM GARRETT Administration Atorvastatin Calcium 40 mg 08/28/25 09:00 08/29/25 10:06 Atorvastatin 40 Mg Tablet PO 40 mg DAILY GARRETT Administration Clopidogrel Bisulfate 75 mg 08/28/25 09:00 08/29/25 10:06 Clopidogrel Bisulfate 75 Mg Tablet PO 75 mg QAM GARRETT Administration Dextrose 12.5 gm 08/28/25 07:57 Dextrose 50% 25 Gm/50 Ml Syringe IV PUSH PRN PRN Hypoglycemia Protocol Gabapentin 300 mg 08/28/25 00:30 08/29/25 10:06 Gabapentin 300 Mg Capsule PO 300 mg Q12HR GARRETT Administration Glucagon 1 mg 08/28/25 07:57 Glucagon For Inj 1 Mg Vial IM PRN PRN Hypoglycemia Protocol Glucose 15 gm 08/28/25 07:57 Glucose Oral Gel 15 Gm Of Glucse In 37.5 Gm Tube PO PRN PRN Hypoglycemia Protocol Dextrose 1,000 mls @ 100 mls/hr 08/28/25 07:57 Dextrose 5% 1,000 Ml IVPB PRN PRN Hypoglycemia Protocol Insulin Aspart 3 - 6 units 08/28/25 08:00 08/29/25 12:31 Insulin Aspart (*Bkc) 100 Units/Ml SUB-Q Not Given TIDWM GARRETT Protocol Insulin Aspart 1 - 3 units 08/28/25 21:00 08/28/25 22:03 Insulin Aspart (*Bkc) 100 Units/Ml SUB-Q 2 units HS GARRETT Administration Protocol Insulin Glargine 25 units 08/28/25 09:00 08/29/25 10:08 Insulin Glargine (*Bkc) 100 Units/Ml SUB-Q 25 units DAILY GARRETT Administration Mupirocin 1 applic 08/28/25 09:00 08/29/25 10:26 Mupirocin 2% Oint 22 Gm Tube EACH NARE 09/01/25 21:01 1 applic Q12HR GARRETT Administration Radiology Results: ITS Impressions Chest X-Ray 08/27/25 17:00 Impression: No acute cardiopulmonary abnormality. Head CT 08/27/25 17:00 Impression: 1.No acute intracranial abnormality. Labs Labs: Laboratory Results - last 24 hr 08/27/25 08/28/25 08/28/25 17:24 15:28 16:24 WBC RBC Hgb Hct MCV MCH MCHC RDW Plt Count MPV Immature Gran % (Auto) Neut % (Auto) Lymph % (Auto) [place] % (Auto) Eos % (Auto) Baso % (Auto) Lymph # (Auto) [place] # (Auto) Eos # (Auto) Baso # (Auto) Abs Immat Gran (auto) Absolute Neuts (auto) Absolute Nucleated RBC Nucleated RBC % Sodium Potassium Chloride Carbon Dioxide Anion Gap BUN Creatinine Estim Creat Clear Calc Estimated GFR Glucose POC Capillary Glucose 249 H 252 H Calcium Phosphorus Magnesium Total Bilirubin AST ALT Alkaline Phosphatase Total Protein Albumin Miscellaneous Test Comment 08/28/25 08/29/25 08/29/25 20:08 04:50 07:31 WBC 9.0 RBC 4.06 L Hgb 10.8 L Hct 33.8 L MCV 83.3 MCH 26.6 MCHC 32.0 RDW 13.4 Plt Count 211 MPV 11.9 H Immature Gran % (Auto) 0.6 H Neut % (Auto) 69.9 Lymph % (Auto) 20.8 [place] % (Auto) 6.4 Eos % (Auto) 1.9 Baso % (Auto) 0.4 Lymph # (Auto) 1.87 [place] # (Auto) 0.6 Eos # (Auto) 0.2 Baso # (Auto) 0.0 Abs Immat Gran (auto) 0.05 H Absolute Neuts (auto) 6.3 Absolute Nucleated RBC 0.000 Nucleated RBC % 0.0 Sodium 127 L Potassium 4.6 Chloride 96 L Carbon Dioxide 27 Anion Gap 4 BUN 34 H Creatinine 0.91 Estim Creat Clear Calc 48 Estimated GFR > 60 Glucose 352 H POC Capillary Glucose 295 H 334 H Calcium 10.6 H Phosphorus 3.2 Magnesium 1.6 Total Bilirubin 0.6 AST 32 ALT 21 Alkaline Phosphatase 200 H Total Protein 7.5 Albumin 3.8 Miscellaneous Test 08/29/25 08/29/25 08/29/25 10:14 12:20 14:46 WBC RBC Hgb Hct MCV MCH MCHC RDW Plt Count MPV Immature Gran % (Auto) Neut % (Auto) Lymph % (Auto) [place] % (Auto) Eos % (Auto) Baso % (Auto) Lymph # (Auto) [place] # (Auto) Eos # (Auto) Baso # (Auto) Abs Immat Gran (auto) Absolute Neuts (auto) Absolute Nucleated RBC Nucleated RBC % Sodium Potassium Chloride Carbon Dioxide Anion Gap BUN Creatinine Estim Creat Clear Calc Estimated GFR Glucose POC Capillary Glucose 452 H 457 H > 500 H* Calcium Phosphorus Magnesium Total Bilirubin AST ALT Alkaline Phosphatase Total Protein Albumin Miscellaneous Test
[2025-08-29] MEDS: ACETAMINOPHEN 325 MG TABLET 650 MG PO (18:46)
[2025-08-29] MEDS: INSULIN GLARGINE (*BKC) 100 UNITS/ML 10 UNITS SUB-Q (18:47)
[2025-08-29] MEDS: INSULIN ASPART (*BKC) 100 UNITS/ML SUB-Q (18:48)
[2025-08-29 21:08] VITALS: BP 118/70; PULSE 89; RESP 20; TEMP 36.7; O2SAT 95
[2025-08-29] MEDS: INSULIN ASPART (*BKC) 100 UNITS/ML 12 UNITS SUB-Q (22:53)
[2025-08-30 03:33] VITALS: BP 114/66; PULSE 97; RESP 18; TEMP 36.4; O2SAT 100
[2025-08-30 06:06] LABS: Hematocrit 32.9 % (37.0-47.0); Hemoglobin 10.7 g/dL (12.0-15.0); Mean Corpuscular HGB Conc 32.5 g/dl (32-36); Mean Corpuscular Hemoglobin 26.9 pg (26-34); Mean Corpuscular Volume 82.7 fl (80-100); Platelet Count Result 204 k/mm3 (150-375); Red Blood Count 3.98 M/mm3 (4.2-5.4); White Blood Count 9.3 K/mm3 (4.5-10.0)
[2025-08-30 06:33] LABS: Anion Gap 6 mmol/L (4-12); Blood Urea Nitrogen 34 mg/dL (7-17); Calcium 10.6 mg/dL (8.4-10.2); Carbon Dioxide 28 mmol/L (22-30); Chloride 99 mmol/L (98-107); Estimated CRCL calculation 51 ml/min; Estimated Glomerular Filt Rate 57; Glucose 172 mg/dL (65-110); Magnesium 1.7 mg/dL (1.6-2.3); Potassium 4.5 mmol/L (3.4-5.0); Sodium 133 mmol/L (137-145)
[2025-08-30 08:00] VITALS: PULSE 102; RESP 14; O2SAT 98
[2025-08-30] MEDS: ASPIRIN 81 MG ENTERIC TABLET PO (09:08)
[2025-08-30] MEDS: CLOPIDOGREL BISULFATE 75 MG TABLET PO (09:08)
[2025-08-30] MEDS: ATORVASTATIN 40 MG TABLET PO (09:08)
[2025-08-30] MEDS: GABAPENTIN 300 MG CAPSULE PO ×2 (09:08→20:42)
[2025-08-30] MEDS: MUPIROCIN 2% OINT 22 GM TUBE 1 APPLIC EACH NARE ×2 (09:11→20:44)
--- NOTE | 2025-08-30 09:13 | P.CDI_ITS ---
CDI Query Clarification Request BMI: 22.4 Nutritional Diagnostic Statement: Please refer to the comprehensive nutrition assessment for further information. If you agree with diagnosis of Severe protein calorie malnutrition related to chronic inadequate intake and malabsorption in the context of chronic cirrhosis as evidenced by weight loss 9%/4 months, 33%/7 months; intakes <75% needs >1 month; severe muscle wasting (Temporalis, clavicles, shoulders, thighs, kneecaps) and severe fat loss (cheeks). Please specify severity if known: * Mild * Moderate * Severe * Other/Unknown <Dian Catalan RN - Last Filed: 08/30/25 09:14> Clarified Diagnosis Clarified Diagnosis: I agree with diagnosis of Severe protein calorie malnutrition related to chronic inadequate intake and malabsorption in the context of chronic cirrhosis as evidenced by weight loss 9%/4 months, 33%/7 months; intakes <75% needs >1 month; severe muscle wasting (Temporalis, clavicles, shoulders, thighs, kneecaps) and severe fat loss (cheeks). <Nicole Fairbanks MD - Last Filed: 09/04/25 11:30>
[2025-08-30] MEDS: INSULIN GLARGINE (*BKC) 100 UNITS/ML 25 UNITS SUB-Q ×3 (10:27→20:40)
[2025-08-30 11:00] VITALS: BP 107/60; PULSE 102; RESP 14; TEMP 36.7; O2SAT 98
[2025-08-30] MEDS: ACETAMINOPHEN 325 MG TABLET 650 MG PO ×2 (15:45→20:48)
--- NOTE | 2025-08-30 16:20 | PM.IMPN2 ---
Assessment and Plan Assessment and Plan (1) Hyperosmolar hyperglycemic state (HHS): Code(s): E11.00 - Type 2 diabetes mellitus with hyperosmolarity without nonketotic hyperglycemic-hyperosmolar coma (NKHHC) Status: Acute Assessment and Plan: History of type 2 diabetes on metformin for years per her family with no recent changes. Arrived to the emergency department significantly hyperglycemic at 806. Mild alkalosis noted on blood gas. Anion gap closed. Beta hydroxy 0.53. - no current evidence of hypovolemia and euvolemic on exam, BP upon arrival 115/81 - insulin gtt initiated on 08/27, NPO - DKA protocol and hypoglycemia initiated - odium corrected to 135 when accounting for glucose levels - BMP and renal function Q4H while on insulin gtt - home medications held - A1C ordered - elementary educator and dietitian consulted - admitted to the ICU with marker machine attendant consulted (2) Left arm weakness: Code(s): R29.898 - Other symptoms and signs involving the musculoskeletal system Status: Acute Assessment and Plan: New deficits of significant left provider strongly weakness, intermittent dysarthria, and right peripheral vision deficits starting around Thanksgiving on 08/17. No previous history of CVA noted. Head CT noted remote appearing bilateral basal ganglion lacunar infarcts with nonspecific focus of probable calcification of the last basal ganglia without midline shift or mass effect. - admission for observation and telemetry - not candidate for thrombolytics or thrombectomy due to timeframe - CXR unremarkable - neurology consulted - brain MRI w/wo ordered - echo w/Bubble ordered - neuro checks Qshift - PT/OT to eval and treat - monitor daily labs, add lipid panel and A1C - start Atorvastatin 40 mg PO, Plavix 75 mg PO, ASA 81 mg - consider 30 day event monitoring at discharge if abnormalities noted on telemetry (3) Anemia of chronic disease: Code(s): D63.8 - Anemia in other chronic diseases classified elsewhere Status: Chronic Assessment and Plan: Hemoglobin 11.5 upon admission on 08/27. Previous baseline appears to be more so around 8. Previous lab work available from January of 2025. MCV/MCHC within normal limits. - transfuse if less than 7 - monitor (4) Hypertension: Qualifiers: Hypertension type: primary hypertension Qualified Code(s): I10 - Essential (primary) hypertension Code(s): I10 - Essential (primary) hypertension Status: Chronic Assessment and Plan: - chronic, currently 107/72, stable - continue home medications - monitor Plan She arrived significantly hyperglycemic at 806 patient was seen by marker machine attendant started patient on DKA protocol with IV insulin and hydration. patient blood sugars have trended down compared to when she came in however still remains high, being monitored and her insulin is adjusted, patient complaints of left wrist drop and its remains in flexion position. 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 will have PT/OT evaluate the patient. patient with history of DM and had not been taking her medications and presented with DKA and her A1c was 15.5, will start patient on metformin and glimepiride, as well lantus and on sliding scale, and monitor, patient seen by elementary educator. Diet: NPO GI Prophylaxis: N/a DVT Prophylaxis: SCDs IV fluids: 2L Lines/Tubes: pIV Code Status: full code Subjective Date/time seen: 08/30/25 16:20 Interval history: Weakness H&P-Narrative: 54 y/o F with PMH of previous history of polysubstance abuse, anxiety/depression diabetes, emphysema, dementia, alcoholic cirrhosis of the liver with ascites, and anemia of chronic disease presents here with weakness. [facility] evaluation of generalized weakness as well as focal weakness. She initially developed changes in her speech that had been intermittent, left upper extremity weakness, and patient changes starting around (08/17). Speech changes more so appreciated by a family members who reported these findings to staff at her facility, however the did not feel there was anything significant. Per family, at they reported that they were going to obtain XRs of the patient's left wrist, however she did not undergo any further imaging or neurologic assessment. More so sent today for generalized weakness that has been progressive over the past week. She denies accompanying nausea, vomiting, diarrhea, fever, chills, polydipsia, polyuria. Patient and family deny any recent changes to her diabetes medications. She arrived significantly hyperglycemic at 806 patient was seen by marker machine attendant started patient on DKA protocol with IV insulin and hydration. patient blood sugars have trended down compared to when she came in however still remains high, being monitored and her insulin is adjusted, patient complaints of left wrist drop and its remains in flexion position. 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 will have PT/OT evaluate the patient. patient with history of DM and had not been taking her medications and presented with DKA and her A1c was 15.5, will start patient on metformin and glimepiride, as well lantus and on sliding scale, and monitor, patient seen by elementary educator. Review of Systems Review of Systems: All systems reviewed & are unremarkable except as noted in HPI and below Exam Narrative: Patient is comfortable, NAD HEENT: eyes are clear and none icteric LUNGS:CTA HEART: RR S1S2 ABD: BS+, Soft and nontender Lower extremities: no edema MS: left wrist in flexion. SKIN: nonjaundiced Neuro: grossly intact. Objective Data Vital Signs Vital Signs: Vital Signs - 24 hr 08/29/25 20:00 08/29/25 21:08 08/30/25 03:33 Temperature 36.7 C 36.4 C L Pulse Rate 89 97 Respiratory Rate 20 18 Blood Pressure 118/70 114/66 Pulse Oximetry 95 100 Oxygen Delivery Room Air 08/30/25 08:00 08/30/25 11:00 Temperature 36.7 C Pulse Rate 102 H 102 H Respiratory Rate 14 14 Blood Pressure 107/60 Pulse Oximetry 98 98 Oxygen Delivery Room Air Intake/Output Intake/Output: Intake & Output 08/27/25 08/28/25 08/29/25 08/30/25 23:59 23:59 23:59 23:59 Intake Total 2004.3 565.8 930 610 Output Total 300 1150 300 Balance 2004.3 265.8 -220 310 Meds/Results Medications: Active Medications Generic Name Dose Route Start Last Admin Trade Name Freq PRN Reason Stop Dose Admin Acetaminophen 650 mg 08/29/25 18:39 08/30/25 15:45 Acetaminophen 325 Mg Tablet PO 650 mg Q4H PRN Administration Mild Pain (1-3) or Fever Aspirin 81 mg 08/28/25 09:00 08/30/25 09:08 Aspirin 81 Mg Enteric Tablet PO 81 mg QAM GARRETT Administration Atorvastatin Calcium 40 mg 08/28/25 09:00 08/30/25 09:08 Atorvastatin 40 Mg Tablet PO 40 mg DAILY GARRETT Administration Clopidogrel Bisulfate 75 mg 08/28/25 09:00 08/30/25 09:08 Clopidogrel Bisulfate 75 Mg Tablet PO 75 mg QAM GARRETT Administration Dextrose 12.5 gm 08/28/25 07:57 Dextrose 50% 25 Gm/50 Ml Syringe IV PUSH PRN PRN Hypoglycemia Protocol Dextrose 12.5 gm 08/29/25 22:48 Dextrose 50% 25 Gm/50 Ml Syringe IV PUSH PRN PRN Hypoglycemia Protocol Gabapentin 300 mg 08/28/25 00:30 08/30/25 09:08 Gabapentin 300 Mg Capsule PO 300 mg Q12HR GARRETT Administration Glimepiride 2 mg 08/31/25 08:00 Glimepiride 2 Mg Tablet PO DAILY@0800 GARRETT Glucagon 1 mg 08/28/25 07:57 Glucagon For Inj 1 Mg Vial IM PRN PRN Hypoglycemia Protocol Glucagon 1 mg 08/29/25 22:48 Glucagon For Inj 1 Mg Vial IM PRN PRN Hypoglycemia Protocol Glucose 15 gm 08/28/25 07:57 Glucose Oral Gel 15 Gm Of Glucse In 37.5 Gm Tube PO PRN PRN Hypoglycemia Protocol Glucose 15 gm 08/29/25 22:48 Glucose Oral Gel 15 Gm Of Glucse In 37.5 Gm Tube PO PRN PRN Hypoglycemia Protocol Dextrose 1,000 mls @ 100 mls/hr 08/28/25 07:57 Dextrose 5% 1,000 Ml IVPB PRN PRN Hypoglycemia Protocol Dextrose 1,000 mls @ 100 mls/hr 08/29/25 22:48 Dextrose 5% 1,000 Ml IVPB PRN PRN Hypoglycemia Protocol Insulin Aspart 2 - 4 units 08/30/25 21:00 Insulin Aspart (*Bkc) 100 Units/Ml SUB-Q HS [facility] Protocol Insulin Aspart 4 - 8 units 08/30/25 08:00 08/30/25 12:21 Insulin Aspart (*Bkc) 100 Units/Ml SUB-Q Not Given TIDWM [facility] Protocol Insulin Glargine 25 units 08/30/25 09:00 08/30/25 10:27 Insulin Glargine (*Bkc) 100 Units/Ml SUB-Q 25 units Q12H GARRETT Administration Metformin HCl 500 mg 08/30/25 17:00 Metformin Hcl Xr 500 Mg Tab.Sr.24h PO BID GARRETT Mupirocin 1 applic 08/28/25 09:00 08/30/25 09:11 Mupirocin 2% Oint 22 Gm Tube EACH NARE 09/01/25 21:01 1 applic Q12HR GARRETT Administration Radiology Results: ITS Impressions Chest X-Ray 08/27/25 17:00 Impression: No acute cardiopulmonary abnormality. Head CT 08/27/25 17:00 Impression: 1.No acute intracranial abnormality. Brain MRI 08/29/25 17:41 IMPRESSION: 1. No acute ischemia. No evidence of intracranial bleed. 2. No space-occupying lesions, ventriculomegaly or abnormal enhancement. 3. FLAIR sequence show moderate, symmetric chronic ischemic change of periventricular, subcortical white matter, predominantly in the occipital region. Labs Labs: Laboratory Results - last 24 hr 08/29/25 08/29/25 08/29/25 16:45 18:15 21:06 WBC RBC Hgb Hct MCV MCH MCHC RDW Plt Count MPV Sodium Potassium Chloride Carbon Dioxide Anion Gap BUN Creatinine Estim Creat Clear Calc Estimated GFR Glucose POC Capillary Glucose 466 H 416 H 470 H Calcium Magnesium 08/30/25 08/30/25 08/30/25 01:40 05:45 07:51 WBC 9.3 RBC 3.98 L Hgb 10.7 L Hct 32.9 L MCV 82.7 MCH 26.9 MCHC 32.5 RDW 13.4 Plt Count 204 MPV 12.3 H Sodium 133 L Potassium 4.5 Chloride 99 Carbon Dioxide 28 Anion Gap 6 BUN 34 H Creatinine 1.01 H Estim Creat Clear Calc 51 Estimated GFR 57 L Glucose 172 H POC Capillary Glucose 224 H 157 H Calcium 10.6 H Magnesium 1.7 08/30/25 11:31 WBC RBC Hgb Hct MCV MCH MCHC RDW Plt Count MPV Sodium Potassium Chloride Carbon Dioxide Anion Gap BUN Creatinine Estim Creat Clear Calc Estimated GFR Glucose POC Capillary Glucose 179 H Calcium Magnesium Quality VTE Prophylaxis VTE prophylaxis: mechanical ordered
[2025-08-30] MEDS: metFORMIN HCL XR 500 MG TAB.SR.24H PO (18:19)
[2025-08-30] MEDS: INSULIN ASPART (*BKC) 100 UNITS/ML SUB-Q ×2 (18:41→20:41)
[2025-08-30 19:00] VITALS: BP 96/50; PULSE 84; RESP 17; TEMP 36.9; O2SAT 100
[2025-08-31] MEDS: MELATONIN 5 MG TABLET PO ×2 (00:21→19:51)
--- NOTE | 2025-08-31 01:04 | PC.NURSE ---
[employer] NOTIFIED EARLIER OF BLOOD SUGAR 401, NO NEW ORDERS
[2025-08-31 03:00] VITALS: BP 111/71; PULSE 76; RESP 16; TEMP 36.2; O2SAT 100
[2025-08-31 05:28] LABS: Hematocrit 31.3 % (37.0-47.0); Hemoglobin 9.8 g/dL (12.0-15.0); Mean Corpuscular HGB Conc 31.3 g/dl (32-36); Mean Corpuscular Hemoglobin 26.6 pg (26-34); Mean Corpuscular Volume 84.8 fl (80-100); Platelet Count Result 178 k/mm3 (150-375); Red Blood Count 3.69 M/mm3 (4.2-5.4); White Blood Count 7.5 K/mm3 (4.5-10.0)
[2025-08-31 05:46] LABS: Anion Gap 7 mmol/L (4-12); Blood Urea Nitrogen 30 mg/dL (7-17); Calcium 10.3 mg/dL (8.4-10.2); Carbon Dioxide 26 mmol/L (22-30); Chloride 100 mmol/L (98-107); Estimated CRCL calculation 47 ml/min; Estimated Glomerular Filt Rate 51; Glucose 167 mg/dL (65-110); Magnesium 1.6 mg/dL (1.6-2.3); Potassium 3.9 mmol/L (3.4-5.0); Sodium 133 mmol/L (137-145)
[2025-08-31] MEDS: GLIMEPIRIDE 2 MG TABLET PO (09:50)
[2025-08-31] MEDS: GABAPENTIN 300 MG CAPSULE PO ×2 (09:50→19:51)
[2025-08-31] MEDS: ASPIRIN 81 MG ENTERIC TABLET PO (09:50)
[2025-08-31] MEDS: metFORMIN HCL XR 500 MG TAB.SR.24H PO ×2 (09:51→16:53)
[2025-08-31] MEDS: CLOPIDOGREL BISULFATE 75 MG TABLET PO (09:51)
[2025-08-31] MEDS: ATORVASTATIN 40 MG TABLET PO (09:51)
[2025-08-31] MEDS: MUPIROCIN 2% OINT 22 GM TUBE 1 APPLIC EACH NARE ×2 (09:52→20:54)
[2025-08-31] MEDS: INSULIN GLARGINE (*BKC) 100 UNITS/ML 25 UNITS SUB-Q ×2 (09:52→20:50)
[2025-08-31 11:00] VITALS: BP 115/69; PULSE 77; RESP 16; TEMP 36.7; O2SAT 99
--- NOTE | 2025-08-31 11:41 | PCNFU ---
Nutrition Follow-Up Complete: Severe protein calorie malnutrition related to chronic inadequate intake and malabsorption in the context of chronic cirrhosis as evidenced by weight loss 9%/4 months, 33%/7 months; intakes <75% needs >1 month; severe muscle wasting (Temporalis, clavicles, shoulders, thighs, kneecaps) and severe fat loss (cheeks) Goal: Meet estimated nutrition needs Patient will continue current goal. Pt current nutrition is DBCC with diet supplements. Last recorded weight is 63 kg, up from 42.5 kg on admit. Bowel Motility: Last reported BM 08/30 Labs Reviewed: Glu 167, Na 133, GFR 51, Cr 1.11 Meds Noted: Lantus, NovoLog, Lipitor Skin: WNL Additional Notes: Patient remains on a DBCC diet. Oral Intake has been > 75% of meals. Diet supplements of Glucerna shakes TID providing an additional 240 kcal and 10 gm protein. Agree wtih diet orders. Monitoring intakes, weights, labs, supplement tolerance, plan of care Follow up in 5 days
[2025-08-31] MEDS: INSULIN ASPART (*BKC) 100 UNITS/ML SUB-Q ×2 (12:36→20:45)
--- NOTE | 2025-08-31 13:27 | PM.IMPN2 ---
Assessment and Plan Assessment and Plan (1) Hyperosmolar hyperglycemic state (HHS): Code(s): E11.00 - Type 2 diabetes mellitus with hyperosmolarity without nonketotic hyperglycemic-hyperosmolar coma (NKHHC) Status: Acute Assessment and Plan: History of type 2 diabetes on metformin for years per her family with no recent changes. Arrived to the emergency department significantly hyperglycemic at 806. Mild alkalosis noted on blood gas. Anion gap closed. Beta hydroxy 0.53. - no current evidence of hypovolemia and euvolemic on exam, BP upon arrival 115/81 - insulin gtt initiated on 08/27, NPO - DKA protocol and hypoglycemia initiated - odium corrected to 135 when accounting for glucose levels - BMP and renal function Q4H while on insulin gtt - home medications held - A1C ordered - photographic equipment mechanic and dietitian consulted - admitted to the ICU with volleyball referee consulted (2) Left arm weakness: Code(s): R29.898 - Other symptoms and signs involving the musculoskeletal system Status: Acute Assessment and Plan: New deficits of significant left provider strongly weakness, intermittent dysarthria, and right peripheral vision deficits starting around Thanksgiving on 08/17. No previous history of CVA noted. Head CT noted remote appearing bilateral basal ganglion lacunar infarcts with nonspecific focus of probable calcification of the last basal ganglia without midline shift or mass effect. - admission for observation and telemetry - not candidate for thrombolytics or thrombectomy due to timeframe - CXR unremarkable - neurology consulted - brain MRI w/wo ordered - echo w/Bubble ordered - neuro checks Qshift - PT/OT to eval and treat - monitor daily labs, add lipid panel and A1C - start Atorvastatin 40 mg PO, Plavix 75 mg PO, ASA 81 mg - consider 30 day event monitoring at discharge if abnormalities noted on telemetry (3) Anemia of chronic disease: Code(s): D63.8 - Anemia in other chronic diseases classified elsewhere Status: Chronic Assessment and Plan: Hemoglobin 11.5 upon admission on 08/27. Previous baseline appears to be more so around 8. Previous lab work available from January of 2025. MCV/MCHC within normal limits. - transfuse if less than 7 - monitor (4) Hypertension: Qualifiers: Hypertension type: primary hypertension Qualified Code(s): I10 - Essential (primary) hypertension Code(s): I10 - Essential (primary) hypertension Status: Chronic Assessment and Plan: - chronic, currently 107/72, stable - continue home medications - monitor Plan She arrived significantly hyperglycemic at 806 patient was seen by volleyball referee started patient on DKA protocol with IV insulin and hydration. patient blood sugars have trended down compared to when she came in however still remains high, being monitored and her insulin is adjusted, patient complaints of left wrist drop and its remains in flexion position. 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 will have PT/OT evaluate the patient. patient with history of DM and had not been taking her medications and presented with DKA and upon arrival her A1c was 15.5, started patient on metformin and glimepiride, as well lantus 25units qd and on sliding scale, and monitor, patient seen by photographic equipment mechanic. Today patient blood sugars are close to normal, will monitor, patient had MRI of brains it did not show any acute injury it did show FLAIR sequence show moderate, symmetric chronic ischemic change of periventricular, subcortical white matter, predominantly in the occipital region, most likely due to elevated blood pressure as patient has been none complaints with her medications. will monitor patient with history of DM and had not been taking her medications and presented with DKA and her A1c was 15.5, will start patient on metformin and glimepiride, as well lantus and on sliding scale, and monitor, patient seen by photographic equipment mechanic. Diet: NPO GI Prophylaxis: N/a DVT Prophylaxis: SCDs IV fluids: 2L Lines/Tubes: pIV Code Status: full code Subjective Date/time seen: 08/31/25 13:27 Interval history: Weakness H&P-Narrative: 54 y/o F with PMH of previous history of polysubstance abuse, anxiety/depression diabetes, emphysema, dementia, alcoholic cirrhosis of the liver with ascites, and anemia of chronic disease presents here with weakness. The patient presents here from [facility] on 08/27 for further evaluation of generalized weakness as well as focal weakness. She initially developed changes in her speech that had been intermittent, left upper extremity weakness, and patient changes starting around Thanksgiving (08/17). Speech changes more so appreciated by a family members who reported these findings to staff at her facility, however the did not feel there was anything significant. Per family, at they reported that they were going to obtain XRs of the patient's left wrist, however she did not undergo any further imaging or neurologic assessment. More so sent today for generalized weakness that has been progressive over the past week. She denies accompanying nausea, vomiting, diarrhea, fever, chills, polydipsia, polyuria. Patient and family deny any recent changes to her diabetes medications. She arrived significantly hyperglycemic at 806 patient was seen by volleyball referee started patient on DKA protocol with IV insulin and hydration. patient blood sugars have trended down compared to when she came in however still remains high, being monitored and her insulin is adjusted, patient complaints of left wrist drop and its remains in flexion position. 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 will have PT/OT evaluate the patient. patient with history of DM and had not been taking her medications and presented with DKA and upon arrival her A1c was 15.5, started patient on metformin and glimepiride, as well lantus 25units qd and on sliding scale, and monitor, patient seen by photographic equipment mechanic. Today patient blood sugars are close to normal, will monitor, patient had MRI of brains it did not show any acute injury it did show FLAIR sequence show moderate, symmetric chronic ischemic change of periventricular, subcortical white matter, predominantly in the occipital region, most likely due to elevated blood pressure as patient has been none complaints with her medications. will monitor Review of Systems Review of Systems: All systems reviewed & are unremarkable except as noted in HPI and below Exam Narrative: Patient is comfortable, NAD HEENT: eyes are clear and none icteric LUNGS:CTA HEART: RR S1S2 ABD: BS+, Soft and nontender Lower extremities: no edema MS: left wrist in flexion. SKIN: nonjaundiced Neuro: grossly intact. Objective Data Vital Signs Vital Signs: Vital Signs - 24 hr 08/30/25 19:00 08/31/25 03:00 08/31/25 11:00 Temperature 36.9 C 36.2 C L 36.7 C Pulse Rate 84 76 77 Respiratory Rate 17 16 16 Blood Pressure 96/50 L 111/71 115/69 Pulse Oximetry 100 100 99 Intake/Output Intake/Output: Intake & Output 08/28/25 08/29/25 08/30/25 08/31/25 23:59 23:59 23:59 23:59 Intake Total 565.8 930 730 680 Output Total 300 1150 700 400 Balance 265.8 -220 30 280 Meds/Results Medications: Active Medications Generic Name Dose Route Start Last Admin Trade Name Freq PRN Reason Stop Dose Admin Acetaminophen 650 mg 08/29/25 18:39 08/30/25 20:48 Acetaminophen 325 Mg Tablet PO 650 mg Q4H PRN Administration Mild Pain (1-3) or Fever Aspirin 81 mg 08/28/25 09:00 08/31/25 09:50 Aspirin 81 Mg Enteric Tablet PO 81 mg QAM GARRETT Administration Atorvastatin Calcium 40 mg 08/28/25 09:00 08/31/25 09:51 Atorvastatin 40 Mg Tablet PO 40 mg DAILY GARRETT Administration Clopidogrel Bisulfate 75 mg 08/28/25 09:00 08/31/25 09:51 Clopidogrel Bisulfate 75 Mg Tablet PO 75 mg QAM GARRETT Administration Dextrose 12.5 gm 08/28/25 07:57 Dextrose 50% 25 Gm/50 Ml Syringe IV PUSH PRN PRN Hypoglycemia Protocol Dextrose 12.5 gm 08/29/25 22:48 Dextrose 50% 25 Gm/50 Ml Syringe IV PUSH PRN PRN Hypoglycemia Protocol Gabapentin 300 mg 08/28/25 00:30 08/31/25 09:50 Gabapentin 300 Mg Capsule PO 300 mg Q12HR GARRETT Administration Glimepiride 2 mg 08/31/25 08:00 08/31/25 09:50 Glimepiride 2 Mg Tablet PO 2 mg DAILY@0800 GARRETT Administration Glucagon 1 mg 08/28/25 07:57 Glucagon For Inj 1 Mg Vial IM PRN PRN Hypoglycemia Protocol Glucagon 1 mg 08/29/25 22:48 Glucagon For Inj 1 Mg Vial IM PRN PRN Hypoglycemia Protocol Glucose 15 gm 08/28/25 07:57 Glucose Oral Gel 15 Gm Of Glucse In 37.5 Gm Tube PO PRN PRN Hypoglycemia Protocol Glucose 15 gm 08/29/25 22:48 Glucose Oral Gel 15 Gm Of Glucse In 37.5 Gm Tube PO PRN PRN Hypoglycemia Protocol Dextrose 1,000 mls @ 100 mls/hr 08/28/25 07:57 Dextrose 5% 1,000 Ml IVPB PRN PRN Hypoglycemia Protocol Dextrose 1,000 mls @ 100 mls/hr 08/29/25 22:48 Dextrose 5% 1,000 Ml IVPB PRN PRN Hypoglycemia Protocol Insulin Aspart 2 - 4 units 08/30/25 21:00 08/30/25 20:41 Insulin Aspart (*Bkc) 100 Units/Ml SUB-Q 4 units HS GARRETT Administration Protocol Insulin Aspart 4 - 8 units 08/30/25 08:00 08/31/25 12:36 Insulin Aspart (*Bkc) 100 Units/Ml SUB-Q 4 units TIDWM GARRETT Administration Protocol Insulin Glargine 25 units 08/30/25 09:00 08/31/25 09:52 Insulin Glargine (*Bkc) 100 Units/Ml SUB-Q 25 units Q12H GARRETT Administration Melatonin 5 mg 08/31/25 00:10 08/31/25 00:21 Melatonin 5 Mg Tablet PO 5 mg HS GARRETT Administration Metformin HCl 500 mg 08/30/25 17:00 08/31/25 09:51 Metformin Hcl Xr 500 Mg Tab.Sr.24h PO 500 mg BID GARRETT Administration Mupirocin 1 applic 08/28/25 09:00 08/31/25 09:52 Mupirocin 2% Oint 22 Gm Tube EACH NARE 09/01/25 21:01 1 applic Q12HR GARRETT Administration Radiology Results: ITS Impressions Chest X-Ray 08/27/25 17:00 Impression: No acute cardiopulmonary abnormality. Head CT 08/27/25 17:00 Impression: 1.No acute intracranial abnormality. Brain MRI 08/29/25 17:41 IMPRESSION: 1. No acute ischemia. No evidence of intracranial bleed. 2. No space-occupying lesions, ventriculomegaly or abnormal enhancement. 3. FLAIR sequence show moderate, symmetric chronic ischemic change of periventricular, subcortical white matter, predominantly in the occipital region. Labs Labs: Laboratory Results - last 24 hr 08/30/25 08/30/25 08/31/25 16:54 20:37 04:49 WBC 7.5 RBC 3.69 L Hgb 9.8 L Hct 31.3 L MCV 84.8 MCH 26.6 MCHC 31.3 L RDW 13.5 Plt Count 178 MPV 12.5 H Sodium 133 L Potassium 3.9 Chloride 100 Carbon Dioxide 26 Anion Gap 7 BUN 30 H Creatinine 1.11 H Estim Creat Clear Calc 47 Estimated GFR 51 L Glucose 167 H POC Capillary Glucose 470 H 401 H Calcium 10.3 H Magnesium 1.6 08/31/25 08/31/25 07:54 11:56 WBC RBC Hgb Hct MCV MCH MCHC RDW Plt Count MPV Sodium Potassium Chloride Carbon Dioxide Anion Gap BUN Creatinine Estim Creat Clear Calc Estimated GFR Glucose POC Capillary Glucose 144 H 220 H Calcium Magnesium Quality VTE Prophylaxis VTE prophylaxis: mechanical ordered
[2025-08-31 19:00] VITALS: BP 108/75; PULSE 87; RESP 18; TEMP 36.4; O2SAT 100
[2025-08-31] MEDS: ACETAMINOPHEN 325 MG TABLET 650 MG PO (19:50)
[2025-09-01] MEDS: ACETAMINOPHEN 325 MG TABLET 650 MG PO ×2 (00:39→04:51)
[2025-09-01 03:00] VITALS: BP 128/80; PULSE 80; RESP 18; TEMP 36.3; O2SAT 100
[2025-09-01 04:55] LABS: Hematocrit 28.9 % (37.0-47.0); Hemoglobin 9.1 g/dL (12.0-15.0); Mean Corpuscular HGB Conc 31.5 g/dl (32-36); Mean Corpuscular Hemoglobin 26.8 pg (26-34); Mean Corpuscular Volume 85.0 fl (80-100); Platelet Count Result 176 k/mm3 (150-375); Red Blood Count 3.40 M/mm3 (4.2-5.4); White Blood Count 8.3 K/mm3 (4.5-10.0)
[2025-09-01 05:17] LABS: Anion Gap 6 mmol/L (4-12); Blood Urea Nitrogen 29 mg/dL (7-17); Calcium 9.8 mg/dL (8.4-10.2); Carbon Dioxide 25 mmol/L (22-30); Chloride 99 mmol/L (98-107); Estimated CRCL calculation 54 ml/min; Estimated Glomerular Filt Rate > 60; Glucose 214 mg/dL (65-110); Magnesium 1.3 mg/dL (1.6-2.3); Potassium 4.4 mmol/L (3.4-5.0); Sodium 130 mmol/L (137-145)
[2025-09-01 08:00] VITALS: PULSE 89; RESP 20; O2SAT 100
[2025-09-01] MEDS: CLOPIDOGREL BISULFATE 75 MG TABLET PO (09:08)
[2025-09-01] MEDS: GABAPENTIN 300 MG CAPSULE PO ×3 (09:08→21:12)
[2025-09-01] MEDS: ASPIRIN 81 MG ENTERIC TABLET PO (09:09)
[2025-09-01] MEDS: ATORVASTATIN 40 MG TABLET PO (09:09)
[2025-09-01] MEDS: metFORMIN HCL XR 500 MG TAB.SR.24H PO ×2 (09:09→18:20)
[2025-09-01] MEDS: GLIMEPIRIDE 2 MG TABLET PO (09:09)
[2025-09-01] MEDS: INSULIN GLARGINE (*BKC) 100 UNITS/ML 25 UNITS SUB-Q ×2 (09:10→21:05)
[2025-09-01] MEDS: MUPIROCIN 2% OINT 22 GM TUBE 1 APPLIC EACH NARE ×2 (09:12→20:52)
--- NOTE | 2025-09-01 09:57 | PM.IMPN2 ---
Assessment and Plan Assessment and Plan (1) Hyperosmolar hyperglycemic state (HHS): Code(s): E11.00 - Type 2 diabetes mellitus with hyperosmolarity without nonketotic hyperglycemic-hyperosmolar coma (NKHHC) Status: Acute (2) Left arm weakness: Code(s): R29.898 - Other symptoms and signs involving the musculoskeletal system Status: Acute (3) Anemia of chronic disease: Code(s): D63.8 - Anemia in other chronic diseases classified elsewhere Status: Chronic (4) Hypertension: Qualifiers: Hypertension type: primary hypertension Qualified Code(s): I10 - Essential (primary) hypertension Code(s): I10 - Essential (primary) hypertension Status: Chronic Assessment and Plan: - continue home medications - monitor Plan 54-year-old female presents with generalized weakness. Initially developed changes in his speech there has been intermittent left upper extremity weakness and starting around Thanksgiving 08/17/2025 speech changes were much more appreciated by family members at a facility where she resides at [facility]. She was then sent to the ER for evaluation this has been ongoing for a week prior to admission. No nausea vomiting diarrhea fever chills polydipsia polyuria. No recent change in her diabetes medication On arrival to the ED she was noted to be significantly hyperglycemic at 806. DKA was ruled out. Patient was admitted to the ICU with the IV insulin and hydration. Blood sugar started to trend down and her insulin dosing was adjusted. Patient also was noted to have left wrist drop etiology uncertain no trauma history or injury. 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 She will also need an EMG study as an outpatient basis in about 4 weeks or so. So follow-up with Neurology. Brain MRI was negative for any acute findings. Carotid Doppler. LDL was 101. History of type 2 diabetes has not been taking her medications present with significant hyperglycemia treated as per protocol in the ICU A1c came back at 15.5. Patient was started on metformin and glimepiride along with Lantus 25 units every day and on sliding scale. Seen by clinical staff educator. MRI brain was performed which did not show any acute findings. FLAIR sequence showed moderate symmetric chronic ischemic changes of periventricular subcortical white matter predominantly in the occipital region most likely due to elevated blood pressure. Peripheral neuropathy increased COVID due to 3 mg q.8 hours. Check vitamin B12 folate will check RPR. Vitamin-D. SPEP UPEP History of alcoholism History of polysubstance abuse Remote history of seizure disorder however not on any anticonvulsants currently Hypertension Cirrhosis of liver DVT Prophylaxis: SCDs IV fluids: 2L Lines/Tubes: pIV Code Status: full code Subjective Date/time seen: 09/01/25 09:57 Interval history: Patient complains of tingling and numbness in her hands and feet. Left wrist drop present. No fever chills. Review of Systems Review of Systems: All systems reviewed & are unremarkable except as noted in HPI and below Exam Narrative: Patient is comfortable, NAD HEENT: eyes are clear and none icteric LUNGS:CTA HEART: RR S1S2 ABD: BS+, Soft and nontender Lower extremities: no edema MS: left wrist in flexion. SKIN: nonjaundiced Neuro: grossly intact. Objective Data Vital Signs Vital Signs: Vital Signs - 24 hr 08/31/25 11:00 08/31/25 19:00 08/31/25 20:30 Temperature 98.1 F 97.6 F Pulse Rate 77 87 Respiratory Rate 16 18 Blood Pressure 115/69 108/75 Pulse Oximetry 99 100 Oxygen Delivery Room Air 09/01/25 03:00 Temperature 97.3 F L Pulse Rate 80 Respiratory Rate 18 Blood Pressure 128/80 Pulse Oximetry 100 Oxygen Delivery Intake/Output Intake/Output: Intake & Output 08/29/25 08/30/25 08/31/25 09/01/25 23:59 23:59 23:59 23:59 Intake Total 009 917 8277 630 Output Total 1150 700 400 400 Balance -927 87 1723 230 Meds/Results Medications: Active Medications Generic Name Dose Route Start Last Admin Trade Name Freq PRN Reason Stop Dose Admin Acetaminophen 650 mg 08/29/25 18:39 09/01/25 04:51 Acetaminophen 325 Mg Tablet PO 650 mg Q4H PRN Administration Mild Pain (1-3) or Fever Aspirin 81 mg 08/28/25 09:00 09/01/25 09:09 Aspirin 81 Mg Enteric Tablet PO 81 mg QAM GARRETT Administration Atorvastatin Calcium 40 mg 08/28/25 09:00 09/01/25 09:09 Atorvastatin 40 Mg Tablet PO 40 mg DAILY GARRETT Administration Clopidogrel Bisulfate 75 mg 08/28/25 09:00 09/01/25 09:08 Clopidogrel Bisulfate 75 Mg Tablet PO 75 mg QAM GARRETT Administration Dextrose 12.5 gm 08/29/25 22:48 Dextrose 50% 25 Gm/50 Ml Syringe IV PUSH PRN PRN Hypoglycemia Protocol Gabapentin 300 mg 08/28/25 00:30 09/01/25 09:08 Gabapentin 300 Mg Capsule PO 300 mg Q12HR GARRETT Administration Glimepiride 2 mg 08/31/25 08:00 09/01/25 09:09 Glimepiride 2 Mg Tablet PO 2 mg DAILY@0800 GARRETT Administration Glucagon 1 mg 08/29/25 22:48 Glucagon For Inj 1 Mg Vial IM PRN PRN Hypoglycemia Protocol Glucose 15 gm 08/29/25 22:48 Glucose Oral Gel 15 Gm Of Glucse In 37.5 Gm Tube PO PRN PRN Hypoglycemia Protocol Dextrose 1,000 mls @ 100 mls/hr 08/29/25 22:48 Dextrose 5% 1,000 Ml IVPB PRN PRN Hypoglycemia Protocol Insulin Aspart 2 - 4 units 08/30/25 21:00 08/31/25 20:45 Insulin Aspart (*Bkc) 100 Units/Ml SUB-Q 2 units HS GARRETT Administration Protocol Insulin Aspart 4 - 8 units 08/30/25 08:00 09/01/25 09:11 Insulin Aspart (*Bkc) 100 Units/Ml SUB-Q Not Given TIDWM [facility] Protocol Insulin Glargine 25 units 08/30/25 09:00 09/01/25 09:10 Insulin Glargine (*Bkc) 100 Units/Ml SUB-Q 25 units Q12H GARRETT Administration Melatonin 5 mg 08/31/25 00:10 08/31/25 19:51 Melatonin 5 Mg Tablet PO 5 mg HS GARRETT Administration Metformin HCl 500 mg 08/30/25 17:00 09/01/25 09:09 Metformin Hcl Xr 500 Mg Tab.Sr.24h PO 500 mg BID GARRETT Administration Mupirocin 1 applic 08/28/25 09:00 09/01/25 09:12 Mupirocin 2% Oint 22 Gm Tube EACH NARE 09/01/25 21:01 1 applic Q12HR GARRETT Administration Radiology Results: ITS Impressions Chest X-Ray 08/27/25 17:00 Impression: No acute cardiopulmonary abnormality. Brain MRI 08/29/25 17:41 IMPRESSION: 1. No acute ischemia. No evidence of intracranial bleed. 2. No space-occupying lesions, ventriculomegaly or abnormal enhancement. 3. FLAIR sequence show moderate, symmetric chronic ischemic change of periventricular, subcortical white matter, predominantly in the occipital region. Head CT 08/31/25 15:37 IMPRESSION: 1. Limited study due to motion artifacts on some of the images. 2. No acute intracranial lesions noted. Chronic small vessel ischemic change in the periventricular white matter predominantly in the occipital location. No significant change from prior imaging studies. Labs Labs: Laboratory Results - last 24 hr 08/31/25 08/31/25 08/31/25 11:56 16:34 19:37 WBC RBC Hgb Hct MCV MCH MCHC RDW Plt Count MPV Sodium Potassium Chloride Carbon Dioxide Anion Gap BUN Creatinine Estim Creat Clear Calc Estimated GFR Glucose POC Capillary Glucose 220 H 91 251 H Calcium Magnesium 09/01/25 09/01/25 04:47 07:51 WBC 8.3 RBC 3.40 L Hgb 9.1 L Hct 28.9 L MCV 85.0 MCH 26.8 MCHC 31.5 L RDW 13.5 Plt Count 176 MPV 12.1 H Sodium 130 L Potassium 4.4 Chloride 99 Carbon Dioxide 25 Anion Gap 6 BUN 29 H Creatinine 0.88 Estim Creat Clear Calc 54 Estimated GFR > 60 Glucose 214 H POC Capillary Glucose 146 H Calcium 9.8 Magnesium 1.3 L
[2025-09-01 11:00] VITALS: BP 104/63; PULSE 89; RESP 20; TEMP 37.2; O2SAT 100
[2025-09-01] MEDS: INSULIN ASPART (*BKC) 100 UNITS/ML SUB-Q ×2 (12:37→21:05)
--- NOTE | 2025-09-01 12:58 | PCCDE ---
08/30/25: A1C TNP (>15%) POC: 08/29: [phone]->[phone] 08/30: [phone] - Meds: Hospitalist note indicates Metformin however not taken Details n/a in med list. Inpt Lantus 25 U Q 12 hrs. Novolog 4-8 U TIDwm + 2-4 U HS DC'd: Novolog 12 U 1time 08/29 22:53 Lantus: 20 U 08/29 15:00 Lantus :10 u 08/29 18:47 5 u : 08/29 18:48 10 u : 08/29 (08/29 Lantus ttl: 60 u + corrections) - IV Continuous Human R Dc'd 08/28. - Met with patient briefly stating RN's at [facility] will administer any medications. No desire for administration instruction - educated re: onset/peak/duration and administration time. Provided: ADA How to Thrive on your Journey with Diabetes. DC orders written. Will need: - Insulin Rx - To have MD follow her at [facility] - POC ACHS. ---- Above discussed with WES
--- NOTE | 2025-09-01 13:12 | PCCDE ---
09/01/25 ~ 10 am: Previous DC orders cancelled. wt: 55 kg - BMI: 19.6 A1C: 15.5% 54 yo F admitted from [facility] with Hyperosmolar Hyperglycemis State (HHS) H/O polysubstance abuse, anxiety/depression diabetes, emphysema, dementia, alcoholic cirrhosis of the liver with ascites, and anemia of chronic disease. POC: 08/30/25: [phone] 08/31: [phone] 09/01: 146 - Current meds: Lantus 25 U Q 12 hrs (08/30 & 08/31) = .9 u/kg = over basalized. Novolog 4-8 U TIDwm + 2-4 U HS (High dose) Glimepiride 2 mg Metformin 500 mb BID - wt based dosing x.5 = Lantus 18 U HS and Jing 4.58 units TIDwm. If not DC'd (per RN expect later today, SNF? vs residential). RECOMMEND: DC Glimepiride Adjust to: Lantus 18 U HS Novolog 4 U TIDwm Change correction from high dose to low dose based on wt ---- On DC will need prescriptions: Insulin pen/needle prescription Glucometer with lancets and strips for monitoring ACHS HCP to follow at [facility] adjust insulin dosing prn. Above discussed with Chelsie HARVEY
[2025-09-01] MEDS: MAGNESIUM SULF 2 GM/WATER 50ML 2 GM/50 ML BAG IVPB (15:54)
[2025-09-01 16:46] LABS: Creatine Kinase 42 U/L (30-135)
[2025-09-01 17:09] LABS: Syphilis IgG/IgM Antibody Non-Reactive (Nonreactive)
[2025-09-01 17:20] LABS: Hemoglobin A1C > 14.0 % (<5.7)
[2025-09-01 17:59] LABS: Vitamin B12 473.0 pg/mL (239-931)
[2025-09-01 19:54] VITALS: BP 108/70; PULSE 97; RESP 18; TEMP 36.8; O2SAT 100
[2025-09-01] MEDS: MELATONIN 5 MG TABLET PO (20:50)
[2025-09-02 05:38] VITALS: BP 102/57; PULSE 75; RESP 18; TEMP 36.7; O2SAT 99
[2025-09-02 06:01] LABS: Hematocrit 30.1 % (37.0-47.0); Hemoglobin 9.3 g/dL (12.0-15.0); Mean Corpuscular HGB Conc 30.9 g/dl (32-36); Mean Corpuscular Hemoglobin 26.6 pg (26-34); Mean Corpuscular Volume 86.2 fl (80-100); Platelet Count Result 187 k/mm3 (150-375); Red Blood Count 3.49 M/mm3 (4.2-5.4); White Blood Count 9.7 K/mm3 (4.5-10.0)
[2025-09-02] MEDS: GABAPENTIN 300 MG CAPSULE PO (06:11)
[2025-09-02 06:25] LABS: Anion Gap 5 mmol/L (4-12); Blood Urea Nitrogen 23 mg/dL (7-17); Calcium 9.8 mg/dL (8.4-10.2); Carbon Dioxide 24 mmol/L (22-30); Chloride 104 mmol/L (98-107); Estimated CRCL calculation 57 ml/min; Estimated Glomerular Filt Rate > 60; Glucose 105 mg/dL (65-110); Magnesium 1.8 mg/dL (1.6-2.3); Potassium 4.3 mmol/L (3.4-5.0); Sodium 133 mmol/L (137-145)
[2025-09-02] MEDS: THIAMINE HCL 100 MG TABLET PO (10:10)
[2025-09-02] MEDS: THERAPEUTIC MULTIVITAMINS/MINERALS TAB (*BKC) 1 TABLET PO (10:10)
[2025-09-02] MEDS: CLOPIDOGREL BISULFATE 75 MG TABLET PO (10:10)
[2025-09-02] MEDS: ASPIRIN 81 MG ENTERIC TABLET PO (10:10)
[2025-09-02] MEDS: GLIMEPIRIDE 2 MG TABLET PO (10:10)
[2025-09-02] MEDS: ATORVASTATIN 40 MG TABLET PO (10:10)
[2025-09-02] MEDS: metFORMIN HCL XR 500 MG TAB.SR.24H PO (10:11)
--- NOTE | 2025-09-02 10:34 | P.DS_ITS ---
DS: Admitting Diagnosis Discharge Date 09/02/2025 Admitting Diagnosis Altered mental status/generalized weakness DS: Discharge Diagnosis Discharge Diagnosis (1) Hyperosmolar hyperglycemic state (HHS): Code(s): E11.00 - Type 2 diabetes mellitus with hyperosmolarity without nonketotic hyperglycemic-hyperosmolar coma (NKHHC) Status: Acute (2) Left arm weakness: Code(s): R29.898 - Other symptoms and signs involving the musculoskeletal system Status: Acute (3) Anemia of chronic disease: Code(s): D63.8 - Anemia in other chronic diseases classified elsewhere Status: Chronic (4) Hypertension: Qualifiers: Hypertension type: primary hypertension Qualified Code(s): I10 - Essential (primary) hypertension Code(s): I10 - Essential (primary) hypertension Status: Chronic Assessment and Plan: - continue home medications - monitor DS: Summary Hospital Course Hospital Course: 54-year-old female presents with generalized weakness. Initially developed changes in his speech there has been intermittent left upper extremity weakness and starting around Thanksgiving 08/17/2025 speech changes were much more appreciated by family members at a facility where she resides at [facility]. She was then sent to the ER for evaluation this has been ongoing for a week prior to admission. No nausea vomiting diarrhea fever chills polydipsia polyuria. No recent change in her diabetes medication On arrival to the ED she was noted to be significantly hyperglycemic at 806. DKA was ruled out. Patient was admitted to the ICU with the IV insulin and hydration. Blood sugar started to trend down and her insulin dosing was adjusted. A1c came back at more than 14. Patient was started on metformin and glimepiride along with Lantus 25 mg twice a day along with sliding scale. Seen by nurse educator. Adjust insulin as an outpatient basis. Patient also was noted to have left wrist drop etiology uncertain no trauma history or injury. 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 She will also need an EMG study as an outpatient basis in about 4 weeks or so. So follow-up with Neurology. Brain MRI was negative for any acute findings. LDL was 101. Follow-up with neurology as an outpatient basis. History of type 2 diabetes has not been taking her medications present with significant hyperglycemia treated as per protocol in the ICU A1c came back at 15.5. Patient was started on metformin and glimepiride along with Lantus 25 units every day and on sliding scale. Seen by nurse educator. MRI brain was performed which did not show any acute findings. FLAIR sequence showed moderate symmetric chronic ischemic changes of periventricular subcortical white matter predominantly in the occipital region most likely due to elevated blood pressure. Peripheral neuropathy increased COVID due to 3 mg q.8 hours. Vitamin B12 and folate normal. RPR was negative. Vitamin-D normal. Vitamin-D. SPEP UPEP pending at the time of discharge. History of alcoholism History of polysubstance abuse Remote history of seizure disorder however not on any anticonvulsants currently Hypertension Cirrhosis of liver DVT Prophylaxis: SCDs IV fluids: 2L Lines/Tubes: pIV Code Status: full code Time Spent with Patient Time attestation: Total time spent providing and/or coordinating discharge services: 45 minutes Exam Narrative: Patient is comfortable, NAD HEENT: eyes are clear and none icteric LUNGS:CTA HEART: RR S1S2 ABD: BS+, Soft and nontender Lower extremities: no edema MS: left wrist in flexion with wrist splint on SKIN: nonjaundiced Neuro: grossly intact. DS: Data Data Completed and Pending Completed studies during hospitalization: Exam Type: CA echo dop bubble study w con Complete two-dimentional, color flow and Doppler transthoracic echocardiogram is performed with agitated saline and with contrast to opacify the left ventricle and to improve the delineation of the left ventricle endocardial borders. Staff Referring Physician: Keily Rodriguez Maintenance Of Way Superintendent: Hailey Ferrara Attending Provider: Isai Rosado MD Contrast/Agitated Saline Contrast/Ag. Saline: Definity Amount: 2.00 ml Existing IV Access: Yes Contrast/Ag. Saline: Agitated Saline Amount: 10.00 ml Existing IV Access: Yes Summary 1. Agitated saline study did not demonstrate any nfkst-su-ywsv shunt. 2. There is normal biventricular size and systolic function. 3. There are no significant valvular abnormalities. Left Ventricle The left ventricle is normal in size and systolic function. The left ventricular ejection fraction is visually estimated to be 60-65%. Right Ventricle The right ventricle is normal in size and systolic function. Left Atria The left atrium is normal size. Right Atria The right atrium is normal size. Atrial Septum Agitated saline study did not demonstrate any [id number]-[id number] shunt. Aortic Valve The aortic valve is trileaflet and opens well. There is no aortic regurgitation. Pulmonic Valve The pulmonic valve is not well visualized. Mitral Valve The mitral valve is normal. There is no mitral regurgitation. Tricuspid Valve The tricuspid valve is normal. There is no tricuspid regurgitation. Pericardium/Pleural Pericardium is normal in appearance with no evidence for significant pericardial effusion. Inferior Vena Cava Normal inferior vena cava with <50% collapse upon inspiration consistent with elevated right atrial pressure, 8 mmHg. Aorta The aortic root at the level of the sinus of Valsalva measures 2.7 cm in diameter. Labs on day of discharge: Labs from last 24 hours 09/02/25 09/02/25 09/01/25 08:28 05:50 20:03 WBC 9.7 RBC 3.49 L Hgb 9.3 L Hct 30.1 L MCV 86.2 MCH 26.6 MCHC 30.9 L RDW 14.0 Plt Count 187 MPV 12.2 H Sodium 133 L Potassium 4.3 Chloride 104 Carbon Dioxide 24 Anion Gap 5 BUN 23 H Creatinine 0.81 Estim Creat Clear Calc 57 Estimated GFR > 60 Glucose 105 POC Capillary Glucose 83 323 H Hemoglobin A1c Calcium 9.8 Magnesium 1.8 Total Creatine Kinase Total Protein (PEP) Albumin (PEP) Globulin (PEP) Albumin/Globulin Ratio Qxfzg-7-Gipjzorht Enjrc-1-Ylseumzao Beta Globulins Gamma Globulins Vitamin B12 Vitamin D 25-Hydroxy Folate Pr Electrophoresis MSpike Syphilis IgG/IgM Ab 09/01/25 09/01/25 09/01/25 17:03 16:04 16:03 WBC RBC Hgb Hct MCV MCH MCHC RDW Plt Count MPV Sodium Potassium Chloride Carbon Dioxide Anion Gap BUN Creatinine Estim Creat Clear Calc Estimated GFR Glucose POC Capillary Glucose 156 H Hemoglobin A1c > 14.0 H Calcium Magnesium Total Creatine Kinase 42 Total Protein (PEP) Pending Albumin (PEP) Pending Globulin (PEP) Pending Albumin/Globulin Ratio Pending Qmnbj-4-Kcswmtblh Pending Nleog-3-Fkbzbphem Pending Beta Globulins Pending Gamma Globulins Pending Vitamin B12 473.0 Vitamin D 25-Hydroxy 36.7 Folate 11.2 Pr Electrophoresis MSpike Pending Syphilis IgG/IgM Ab Non-reactive 09/01/25 11:41 WBC RBC Hgb Hct MCV MCH MCHC RDW Plt Count MPV Sodium Potassium Chloride Carbon Dioxide Anion Gap BUN Creatinine Estim Creat Clear Calc Estimated GFR Glucose POC Capillary Glucose 202 H Hemoglobin A1c Calcium Magnesium Total Creatine Kinase Total Protein (PEP) Albumin (PEP) Globulin (PEP) Albumin/Globulin Ratio Rxdpd-2-Sfmjbggdc Bmljh-0-Szbemlvnv Beta Globulins Gamma Globulins Vitamin B12 Vitamin D 25-Hydroxy Folate Pr Electrophoresis MSpike Syphilis IgG/IgM Ab Imaging Radiologist's impression: ITS Impressions Chest X-Ray 08/27/25 17:00 Impression: No acute cardiopulmonary abnormality. Head CT 08/27/25 17:00 Impression: 1.No acute intracranial abnormality. Brain MRI 08/29/25 17:41 IMPRESSION: 1. No acute ischemia. No evidence of intracranial bleed. 2. No space-occupying lesions, ventriculomegaly or abnormal enhancement. 3. FLAIR sequence show moderate, symmetric chronic ischemic change of periventricular, subcortical white matter, predominantly in the occipital region. Head CT 08/31/25 15:37 IMPRESSION: 1. Limited study due to motion artifacts on some of the images. 2. No acute intracranial lesions noted. Chronic small vessel ischemic change in the periventricular white matter predominantly in the occipital location. No significant change from prior imaging studies. Discharge Plan Discharge Attending physician on discharge: Stephan Hernandez Consulting providers: Manav Mcgill; Marisol Guy Discharging Clinician: Stephan Hernandez Anticipated Discharge Date/Time: 09/02/25 10:38 Patient Disposition: [place] Nursing Home/Asst Living Activity: as tolerated Diet: heart healthy and diabetic Discharge Instructions: patient to follow up with her primary care provider, neurologist as soon as possible, patient is instructed if any symptoms worsen to go to nearest ER. PT OT to continue to evaluate and treat accucheck ac and hs. notify provider if < 70 or > 400. left wrist splint for wrist drop follow up with neurology in 4 weeks. call for appointment Patient Instructions: Antibiotic Form, Hyperosmolar Hyperglycemic State (DC) Patient Language: Kuwaiti Stand Alone Forms: General Discharge Information, Care Home Discharge Follow-up/Referrals: Amrik,Rodriguez Clarke [Primary Care Provider] Marisol Guy MD [Physician, Neurology] Discharge Medications: New atorvastatin 40 mg Tablet 40 mg PO DAILY Qty: 30 0RF insulin glargine [Lantus U-100 Insulin] 100 unit/mL Solution 25 unit subcut QPM Qty: 10 0RF aspirin 81 mg Tablet,Delayed Release (Dr/Ec) 81 mg PO QAM Qty: 30 0RF glimepiride 2 mg Tablet 2 mg PO DAILY@0800 Qty: 30 0RF insulin aspart U-100 [Novolog U-100 Insulin aspart] 100 unit/mL Solution 4 - 8 unit subcut TIDWM Qty: 30 0RF Protocol: Insulin Corrective High-Dose Condition: glucose < 70 mg/dl Dose/Route: Follow hypoglycemia order Condition: glucose 70-200 mg/dl Dose/Route: No additional insulin Condition: glucose 201-250 mg/dl Dose/Route: 4 units sub-Q Condition: glucose 251-300 mg/dl Dose/Route: 5 units sub-Q Condition: glucose 301-350 mg/dl Dose/Route: 6 units sub-Q Condition: glucose 351-400 mg/dl Dose/Route: 8 units sub-Q Condition: glucose > 400 mg/dl Dose/Route: Call MD Protocol Text: *No Correction Dose at Bedtime* gabapentin [Neurontin] 300 mg Capsule 300 mg PO Q8H Qty: 90 0RF metformin 500 mg tablet 500 mg PO BIDWMEAL Qty: 60 0RF Continued bisacodyl [Alophen (bisacodyl)] 5 mg tablet,delayed release (DR/EC) 5 mg PO DAILY PRN (Reason: constipation) lactulose [Constulose] 10 gram/15 mL solution 10 g PO BID lidocaine 5 % adhesive patch,medicated 2 patch topical DAILY pantoprazole [Protonix] [address] for susp in packet 40 mg PO DAILY Thera-M 9 mg iron-400 mcg tablet 1 tablet PO DAILY thiamine mononitrate (vit B1) [Vitamin B-1 (mononitrate)] 100 mg tablet 100 mg PO DAILY tramadol 50 mg tablet 50 mg PO Q6H PRN (Reason: pain) metoprolol tartrate 25 mg tablet 12.5 mg PO BID 30 Days Qty: 30 0RF Discontinued gabapentin 300 mg capsule 300 mg PO BID amlodipine [Norvasc] 5 mg Tablet 5 mg PO DAILY 30 Days Qty: 30 1RF spironolactone [Aldactone] 50 mg Tablet 100 mg PO QAM 30 Days Qty: 60 1RF furosemide 20 mg tablet 40 mg PO DAILY 30 Days Qty: 0 1RF Date of admission: 08/27/25 18:19 Primary Care Provider: China,Tricia Admitting Provider: Isai Rosado Attending physician on admission: Isai Rosado Condition: Improved
[2025-09-02 12:41] LABS: SARS-CoV-2 RNA PCR Negative (Negative)
--- NOTE | 2025-09-02 12:54 | PC.NURSE ---
Attempted to call [facility], [place] at [place] @ [phone]. Message left with this RNs name and call back number.
[2025-09-04 15:10] LABS: Albumin 2.9 g/dL (2.9-4.4); Alpha-1-Globulin 0.3 g/dL (0.0-0.4); Alpha-2-Globulin 0.8 g/dL (0.4-1.0); Gamma Globulin 1.3 g/dL (0.4-1.8)
--- NOTE | 2025-09-08 13:54 | PCCDE ---
09/08/25: Pt DC'd to [facility] Spoke with Sav RN - nurses are administering her medication.
== END 2025-09-02 13:54 | DRG 420 ==
LOC: ANHED 18:28 → ANHICU 19:40 → ANH2MED 08-28 18:37
PROVIDERS: Family Medicine; Internal Medicine; Student in an Organized Health Care Education/Training Program; Admitting Provider Internal Medicine; Emergency Provider Registered Nurse; PCP Internal Medicine; Visit Provider Internal Medicine
DX: E11.00 Type 2 diabetes mellitus with hyperosmolarity without nonketotic hyperglycemic-hyperosmolar coma (NKHHC) (principal); D63.8 Anemia in other chronic diseases classified elsewhere; K70.31 Alcoholic cirrhosis of liver with ascites; I10 Essential (primary) hypertension; R29.898 Other symptoms and signs involving the musculoskeletal system; E43 Unspecified severe protein-calorie malnutrition; M21.332 Wrist drop, left wrist; F10.27 Alcohol dependence with alcohol-induced persisting dementia; G40.909 Epilepsy, unspecified, not intractable, without status epilepticus; E11.42 Type 2 diabetes mellitus with diabetic polyneuropathy; Z11.52 Encounter for screening for COVID-19; F41.8 Other specified anxiety disorders; J43.9 Emphysema, unspecified; K21.9 Gastro-esophageal reflux disease without esophagitis; F17.210 Nicotine dependence, cigarettes, uncomplicated; Z68.22 Body mass index [BMI] 22.0-22.9, adult; Z99.3 Dependence on wheelchair
CPT/HCPCS: 36415; 36600; 70450; 70553; 71046; 80048; 80053; 80061; 81001; 82010; 82077; 82306; 82550; 82607; 82746; 82805; 82948; 83036; 83605; 83735; 84100; 84155; 84165; 85018; 85025; 85027; 85610; 85730; 86140; 86593; 87086; 87635; 87641; 93005; 96361; 96374; 96375; 97162; 97166; 97530; 99285; A9270; A9577; C8929; J1815; J3411; J3475; J3480; J7030; Q9957